=== PATIENT | female | born 1965 | race Caucasian/White ===

== ENCOUNTER → 2016-04-15 | Outpatient (CLI) | payer OTHER ==
--- NOTE | 2016-04-16 14:28 | MM ---
Reason for exam: screening (asymptomatic). Last mammogram was performed 1 year and 11 months ago. History: Patient had first child at age 35. Family history of breast cancer in maternal aunt and breast cancer in maternal cousin. Benign left breast aspiration of the left breast, October 19, 2011. Physical Findings: A clinical breast exam by your physician is recommended on an annual basis and results should be correlated with mammographic findings. MG Screening Mammo w CAD Bilateral CC and MLO view(s) were taken. Prior study comparison: May 22, 2014, right breast MG work up mamm w CAD RT. May 17, 2014, bilateral MG screening mammo w CAD. September 29, 2011, bilateral digital screening mammo w/CAD. The breast tissue is heterogeneously dense. This may lower the sensitivity of mammography. Finding #1: There is a 10 mm circumscribed oval mass in the lower inner quadrant, anterior position of the right breast, 1-2cm from the nipple. Finding #2: There are typically benign round calcifications in both breasts. New finding since May 22, 2014. ASSESSMENT: Incomplete: need additional imaging evaluation, BI-RAD 0 RECOMMENDATION: Special view mammogram and ultrasound of the right breast. [facility] will attempt to contact patient to return for supplemental views and ultrasound.
== END | disposition home or self-care (01) ==
LOC: RADMAMWWP 07:49
PROVIDERS: ATTEND Family Medicine
DX: Z12.31 Encounter for screening mammogram for malignant neoplasm of breast (principal)

== ENCOUNTER → 2016-04-27 | Outpatient (CLI) | payer OTHER ==
--- NOTE | 2016-04-28 07:50 | MM ---
Reason for exam: additional evaluation requested from abnormal screening. Last mammogram was performed less than 1 month ago. History: Patient had first child at age 35. Family history of breast cancer in maternal aunt and breast cancer in maternal cousin. Benign left breast aspiration of the left breast, October 19, 2011. Physical Findings: Nurse did not find any significant physical abnormalities on exam. MG 3D Work Up W/Cad RT CC and MLO view(s) were taken of the right breast. Prior study comparison: April 15, 2016, bilateral MG screening mammo w CAD. May 22, 2014, right breast MG work up mamm w CAD RT. Nodule persists. These results were verbally communicated with the patient and result sheet given to the patient on 04/27/16. ASSESSMENT: Incomplete: need additional imaging evaluation, BI-RAD 0 RECOMMENDATION: Ultrasound of the right breast.
--- NOTE | 2016-04-28 07:51 | USB ---
Reason for exam: additional evaluation requested from abnormal screening. History: Patient had first child at age 35. Family history of breast cancer in maternal aunt and breast cancer in maternal cousin. Benign left breast aspiration of the left breast, October 19, 2011. US Breast Workup Limited RT Right breast ultrasound demonstrates a 0.75 x 0.51 x 0.53cm mixed lesion at 6 o'clock. These results were verbally communicated with the patient and result sheet given to the patient on 04/27/16. ASSESSMENT: Probably benign, BI-RAD 3 RECOMMENDATION: Follow-up diagnostic mammogram and ultrasound of the right breast in 6 months.
== END | disposition home or self-care (01) ==
LOC: RADMAMWWP 06:57
PROVIDERS: ATTEND Family Medicine
DX: R92.8 Other abnormal and inconclusive findings on diagnostic imaging of breast (principal); R92.2 Inconclusive mammogram
CPT/HCPCS: 76642; G0206; G0279

== ENCOUNTER → 2016-10-25 | Outpatient (CLI) | payer OTHER ==
--- NOTE | 2016-10-25 09:29 | MM ---
Reason for exam: follow-up at short interval from prior study. Last mammogram was performed 6 months ago. History: Patient had first child at age 35. Family history of breast cancer in maternal aunt and breast cancer in maternal cousin. Benign left breast aspiration of the left breast, October 19, 2011. Physical Findings: Nurse did not find any significant physical abnormalities on exam. MG Diagnostic Mammo RT w CAD CC and MLO view(s) were taken of the right breast. Prior study comparison: April 27, 2016, right breast MG 3d work up w/cad RT. April 15, 2016, bilateral MG screening mammo w CAD. The breast tissue is heterogeneously dense. This may lower the sensitivity of mammography. Nodular density in the right breast persists. These results were verbally communicated with the patient and result sheet given to the patient on 10/25/16. ASSESSMENT: Incomplete: need additional imaging evaluation, BI-RAD 0 RECOMMENDATION: Ultrasound of the right breast.
--- NOTE | 2016-10-25 09:31 | USB ---
Reason for exam: follow-up at short interval from prior study. History: Patient had first child at age 35. Family history of breast cancer in maternal aunt and breast cancer in maternal cousin. Benign left breast aspiration of the left breast, October 19, 2011. US Breast RT Right breast ultrasound includes all four quadrants, the retroareolar region and axilla. Finding demonstrates two cystic lesions at 6 o'clock measuring 6 x 5 x 6mm and 6 x 3 x 4mm. These results were verbally communicated with the patient and result sheet given to the patient on 10/25/16. ASSESSMENT: Benign, BI-RAD 2 RECOMMENDATION: Return to routine screening mammogram schedule for both breasts. Back on schedule for April 2017.
== END | disposition home or self-care (01) ==
LOC: RADMAMWWP 08:33
PROVIDERS: ATTEND Family Medicine
DX: R92.8 Other abnormal and inconclusive findings on diagnostic imaging of breast (principal)
CPT/HCPCS: 76641; G0206

== ENCOUNTER 2017-03-28 02:56 | Emergency (ER) | payer OTHER ==
[2017-03-28 03:03] VITALS: RESP 18; TEMP 100.2
[2017-03-28] MEDS ORDERED: HYDROcodone/APAP 5-325MG 1 EACH TAB PO STA (03:19)
--- NOTE | 2017-03-28 04:03 | XR ---
EXAM: XR Right Humerus, 2 or More Views CLINICAL HISTORY: Pain. TECHNIQUE: Frontal and lateral views of the right humerus. COMPARISON: No relevant prior studies available. FINDINGS: Bones/joints: No evidence of acute fracture or dislocation. Soft tissues: No evidence of significant soft tissue swelling.. IMPRESSION: No radiographic evidence of acute osseous injury.
--- NOTE | 2017-03-28 04:13 | XR ---
EXAM: XR Right Shoulder Complete, 2 or More Views CLINICAL HISTORY: Pain status post trauma TECHNIQUE: Two or more views of the right shoulder. COMPARISON: 03/14/2014. FINDINGS: Bones/joints: Mild degenerative changes are noted. No acute fracture. No dislocation. Soft tissues: Soft tissue swelling is suggested overlying the shoulder. IMPRESSION: Soft tissue swelling overlies the shoulder without radiographic evidence of acute osseous injury.
[2017-03-28 04:19] VITALS: BP 164/71; PULSE 95
--- NOTE | 2017-03-28 04:21 | ED ---
Upper Extremity HPI - General Chief Complaint: Extremity Injury, Upper Stated Complaint: Arm pain Time Seen by Provider: 03/28/17 03:05 Source: patient, family Mode of arrival: ambulatory Limitations: physical limitation - History of Present Illness Initial Comments: This is a 51 year old female with right upper arm pain after lifting a box at the [employer] store to send, 3 days ago. Patient reports that she felt something pull her arm, and has been having pain since then. She denies previous injury to this arm. Patient denies any other symptoms. She reports swelling to the arm. She denies any other symptoms. Patient reports no chest pain, shortness of breath, nausea, and vomiting. - Related Data Home Medications Medication Instructions Recorded Confirmed Albuterol Inhaler [Ventolin Hfa 1 - 2 puff INHALATION RT-Q6H PRN 02/19/14 Inhaler] Aspirin/Sod Bicarb/Citric Acid 2 tab PO Q4H PRN 03/10/16 03/10/16 [[place] Original Tab Eff] Previous Rx's Medication Instructions Recorded Amoxicillin/Potassium Clav 1 tab PO Q12HR #14 tab 03/11/16 [Augmentin 875-125 Tablet] Fluticasone Nasal [place] [Flonase 1 spray EA NOSTRIL DAILY #1 bottle 03/11/16 Nasal [place]] Acetaminophen-Codeine 300-30mg 1 tab PO Q8H PRN #10 tablet 03/28/17 [Tylenol #3] Allergies Allergy/AdvReac Type Severity Reaction Status Date / Time iodine AdvReac Rash/Hives Verified 03/10/16 14:18 Review of Systems ROS Statement: Those systems with pertinent positive or pertinent negative responses have been documented in the HPI. ROS Other: All systems not noted in ROS Statement are negative. Past Medical History Past Medical History: Asthma, GERD/Reflux, Pneumonia Additional Past Medical History / Comment(s): DISSASSOCIATIVE DISORDER, schizophrenic, ptsd, anxiety, ruptured ear drum(lt), palpatations, bronchits, ulcer, migraines, rib fx, osteoporosis History of Any Multi-Drug Resistant Organisms: None Reported Past Surgical History: Appendectomy Past Anesthesia/Blood Transfusion Reactions: Motion Sickness Additional Past Anesthesia/Blood Transfusion Reaction / Comment(s): clausterphobia Past Psychological History: Anxiety, Depression, PTSD, Schizophrenia Smoking Status: Never smoker Past Alcohol Use History: None Reported Past Drug Use History: None Reported - Past Family History Mother Family Medical History: Cancer, COPD Additional Family Medical History / Comment(s): colon cancer, depression Father Family Medical History: Myocardial Infarction ([place]) Additional Family Medical History / Comment(s): ptsd ([place] war), at age 42-mi General Exam - General Exam Comments Initial Comments: This is a 51 year old female, no distress Limitations: physical limitation General appearance: alert, in no apparent distress Head exam: Present: atraumatic, normocephalic, normal inspection Eye exam: Present: normal appearance, PERRL, EOMI. Absent: scleral icterus, conjunctival injection, periorbital swelling ENT exam: Present: normal exam, mucous membranes moist Neck exam: Present: normal inspection. Absent: tenderness, meningismus, lymphadenopathy Respiratory exam: Present: normal lung sounds bilaterally. Absent: respiratory distress, wheezes, rales, rhonchi, stridor Cardiovascular Exam: Present: regular rate, normal rhythm, normal heart sounds. Absent: systolic murmur, diastolic murmur, rubs, gallop, clicks GI/Abdominal exam: Present: soft, normal bowel sounds. Absent: distended, tenderness, guarding, rebound, rigid Right Shoulder Exam: Present: normal inspection, tenderness. Absent: full ROM ( limited ROM and tenderness over glenohumeral area) Upper Arm exam: Present: normal inspection, tenderness (over tripcep and biceps) . Absent: full ROM Elbow exam: Present: normal inspection, full ROM Forearm Wrist exam: Present: normal inspection, full ROM Hand Wrist exam: Present: normal inspection, full ROM Neuro motor exam: Present: wrist extension intact, thumb opposition intact, thumb IP flexion intact, thumb adduction intact, fingers 2-5 abduction intact Neurosensory exam: Present: 2-point discrimination Vascular: Present: normal capillary refill Neurological exam: Present: alert, oriented X3, CN II-XII intact Psychiatric exam: Present: normal affect, normal mood Skin exam: Present: warm, dry, intact, normal color. Absent: rash Course Vital Signs 03/28/17 03/28/17 03:01 04:17 Temperature 100.2 F H Pulse Rate 114 H 95 Respiratory 18 18 Rate Blood Pressure 137/79 164/71 O2 Sat by Pulse 98 100 Oximetry Medical Decision Making - Medical Decision Making Pt is a 51 year old female with CC of right arm pain. Patient had this occur after lifting a box to be shipped. Patient has pain with any range of motion of arm and shoulder. She is tender over tricpets and bicep. Patient xrays show no abnormalities. Patient has no other symptoms. Patient placed in a sling, I believe she has tendenitis over biceps.Patient given antiinflammatory and advised to follow up with PCP. - Radiology Data Radiology results: report reviewed Xray of shoulder and humerus show no bony abnormality. Disposition Clinical Impression: Right arm pain Disposition: HOME SELF-CARE Condition: Good Instructions: Arm Pain (ED) Additional Instructions: Patient has a Motrin Tylenol for pain. Follow-up with your primary care provider as well as wound specialist. Return to emergency department if any alarming signs or symptoms occur. Prescriptions: Acetaminophen-Codeine 300-30mg [Tylenol #3] 1 tab PO Q8H PRN #10 tablet PRN Reason: Pain Referrals: Trini Sadler MD [Primary Care Provider] - 1-2 days Orlando Martinez DO [Doctor of Osteopathic Medicine] - 1-2 days Time of Disposition: 04:21
== END 2017-03-28 04:39 | disposition home or self-care (01) ==
LOC: EC 02:56
DX: M79.601 Pain in right arm (principal); M79.89 Other specified soft tissue disorders; Z91.048 Other nonmedicinal substance allergy status
CPT/HCPCS: 99283

== ENCOUNTER 2019-05-29 09:32 | Day surgery (SDC) | payer OTHER ==
[2019-05-25 08:24] VITALS: BMI 28.7
[~2019-05-29 09:32] MED LIST: LACTATED RINGERS 1,000 ML IV SCH
[2019-05-29 10:26] VITALS: TEMP 98.9
[2019-05-29] MEDS ORDERED: LIDOCAINE 1% (10MG/ML) FOR IV START INTRADERMA ONE (10:55)
[2019-05-29] MEDS ORDERED: PROPOFOL 10 MG/ML 20 ML VIAL IV ONE (11:35)
[2019-05-29 11:57] VITALS: BP 100/53; PULSE 99; RESP 16
--- NOTE | 2019-05-29 11:57 | P.PCN ---
Date of Procedure: 05/29/19 Description of Procedure: BRIEF HISTORY: Patient is a 53-year-old female presenting for colonoscopy for screening for malignant neoplasm of the colon. No prior colonoscopies reported. No change in bowel habits, blood per rectum or abdominal pain reported. PROCEDURE PERFORMED: Colonoscopy aborted/failed secondary to poor prep. PREOPERATIVE DIAGNOSIS: Screening for malignant neoplasm of the colon, no prior colonoscopies, family history of colon cancer in patient mother. ESTIMATED BLOOD LOSS: Minimal. IV sedation per Anesthesia. PROCEDURE: After informed consent was obtained, the patient, was brought into the endoscopy unit. IV sedation was administered by Anesthesia under continuous monitoring. Digital rectal examination was normal. Initially the Olympus CF-190 flexible video colonoscope was then inserted in the rectum, gradually advanced into the descending colon at which time the procedure had to be aborted secondary to poor prep. The patient had large amount of solid stool throughout the colon prohibiting visualization of the mucosa. The procedure was aborted. The patient tolerated the procedure well. IMPRESSION: Colonoscopy aborted/failed secondary to poor prep with a large amount of stool throughout the visualized colon. RECOMMENDATIONS: Findings of this examination were discussed with the patient and her . Okay to resume diet. Okay to resume medications. Would recommend repeat colonoscopy in 6 months with 2 day prep.
== END 2019-05-29 12:30 | disposition home or self-care (01) ==
LOC: ORWHC2ENDO 09:32
PROVIDERS: ATTEND Internal Medicine
DX: Z12.11 Encounter for screening for malignant neoplasm of colon (principal); Z80.0 Family history of malignant neoplasm of digestive organs; Z53.09 Procedure and treatment not carried out because of other contraindication; J45.909 Unspecified asthma, uncomplicated; Z79.899 Other long term (current) drug therapy; Z88.2 Allergy status to sulfonamides; Z88.8 Allergy status to other drugs, medicaments and biological substances; Z90.49 Acquired absence of other specified parts of digestive tract
CPT/HCPCS: G0105; J2704; 45378

== ENCOUNTER → 2019-09-25 | Outpatient (CLI) | payer OTHER ==
--- NOTE | 2019-09-27 11:19 | MM ---
Reason for exam: screening (asymptomatic). Last mammogram was performed 2 years and 11 months ago. History: Patient is postmenopausal and had first child at age 35. Family history of breast cancer in maternal aunt and breast cancer in maternal cousin. Benign left breast aspiration of the left breast, October 19, 2011. Physical Findings: A clinical breast exam by your physician is recommended on an annual basis and results should be correlated with mammographic findings. MG Screening Mammo w CAD Bilateral CC and MLO view(s) were taken. Prior study comparison: October 25, 2016, right breast MG diagnostic mammo RT w CAD. April 27, 2016, right breast MG 3d work up w/cad RT. The breast tissue is heterogeneously dense. This may lower the sensitivity of mammography. There are benign appearing round calcifications bilaterally. There is no discrete abnormality. ASSESSMENT: Benign, BI-RAD 2 RECOMMENDATION: Routine screening mammogram of both breasts in 1 year.
== END | disposition home or self-care (01) ==
LOC: RADMAMWWP 06:58
PROVIDERS: ATTEND Family Medicine
DX: Z12.31 Encounter for screening mammogram for malignant neoplasm of breast (principal); M89.9 Disorder of bone, unspecified
CPT/HCPCS: 77067

== ENCOUNTER → 2020-02-04 | Outpatient (CLI) | payer OTHER | END | disposition home or self-care (01) | LOC: LABWHC1 14:33 | PROVIDERS: ATTEND Family Medicine | DX: Z20.89 Contact with and (suspected) exposure to other communicable diseases (principal) | CPT/HCPCS: U0003; C9803 ==

== ENCOUNTER 2020-02-20 10:33 | Observation (INO) | payer OTHER ==
[2020-02-20] MEDS ORDERED: NITROGLYCERIN SL TABS 0.4 MG TAB SUBLINGUAL STA ×2 (11:35)
[2020-02-20] MEDS ORDERED: ASPIRIN 81 MG PO STA (11:35)
--- NOTE | 2020-02-20 11:38 | ED ---
General Adult HPI - General Chief complaint: Chest Pain Stated complaint: chest pain Time Seen by Provider: 02/20/20 11:05 Source: patient, RN notes reviewed Mode of arrival: ambulatory Limitations: no limitations - History of Present Illness Initial comments: Patient is a pleasant 54-year-old female presenting to the emergency Department with complaints of chest discomfort. Onset of symptoms was around 9:30 this morning. Symptoms have been persistent. Patient states discomfort is sternal to right-sided and feels like pressure. Symptoms are somewhat positional. There is mild associated dyspnea with deep breaths or position changes. No nausea or diaphoresis. No history of similar symptoms previously. No leg pain or leg swelling. Patient did have adams virus infection around 2 weeks ago. - Related Data Home Medications Medication Instructions Recorded Confirmed Cholecalciferol [Vitamin D3 (25 5,000 unit PO DAILY 05/25/19 02/20/20 Mcg = 1000 Iu)] SUMAtriptan SUCCINATE [Imitrex] 4 mg SQ DIRECTED PRN 05/25/19 02/20/20 Albuterol Sulfate [Ventolin HFA] 1 - 2 puff INHALATION RT-Q6H PRN 02/20/20 02/20/20 Allergies Allergy/AdvReac Type Severity Reaction Status Date / Time magnesium sulfate Allergy Severe paralysis Verified 02/20/20 12:03 iodine Allergy Rash/Hives Verified 02/20/20 12:03 shellfish derived [Shrimp] Allergy Rash/Hives Verified 02/20/20 12:03 Sulfates AdvReac Severe paralysis Uncoded 02/20/20 12:03 Review of Systems ROS Statement: Those systems with pertinent positive or pertinent negative responses have been documented in the HPI. ROS Other: All systems not noted in ROS Statement are negative. Constitutional: Denies: fever Eyes: Denies: eye pain ENT: Denies: ear pain Respiratory: Reports: as per HPI Cardiovascular: Reports: as per HPI, chest pain Endocrine: Denies: fatigue Gastrointestinal: Denies: abdominal pain Genitourinary: Denies: dysuria Musculoskeletal: Denies: back pain Skin: Denies: rash Neurological: Denies: weakness Past Medical History Past Medical History: Asthma, GERD/Reflux, Pneumonia Additional Past Medical History / Comment(s): DISSASSOCIATIVE DISORDER, schizophrenic, ptsd, anxiety, ruptured ear drum(lt), palpatations, bronchits,ulcer, migraines, rib fx, osteoporosis History of Any Multi-Drug Resistant Organisms: None Reported Past Surgical History: Appendectomy Additional Past Surgical History / Comment(s): Fluid drained from Breast Past Anesthesia/Blood Transfusion Reactions: Motion Sickness Additional Past Anesthesia/Blood Transfusion Reaction / Comment(s): clausterphobia Past Psychological History: Anxiety, Depression, PTSD, Schizophrenia Smoking Status: Never smoker Past Alcohol Use History: None Reported Past Drug Use History: None Reported - Past Family History Mother Family Medical History: Cancer, COPD Additional Family Medical History / Comment(s): colon cancer, depression Father Family Medical History: Myocardial Infarction ([place]) Additional Family Medical History / Comment(s): ptsd ([place] war), at age 42-mi General Exam Limitations: no limitations General appearance: alert, in no apparent distress Head exam: Present: normocephalic Eye exam: Present: normal appearance Neck exam: Present: normal inspection Respiratory exam: Present: normal lung sounds bilaterally, chest wall tenderness (Mild tenderness right side of the sternum upper) Cardiovascular Exam: Present: normal rhythm, tachycardia, normal heart sounds Expanded Peripheral pulses: 2+: Radial (R), Radial (L), Posterior Tibialis (R), Posterior Tibialis (L), Dorsalis Pedis (R), Dorsalis Pedis (L) GI/Abdominal exam: Present: soft. Absent: tenderness Extremities exam: Present: normal inspection. Absent: pedal edema, calf tenderness Back exam: Present: normal inspection Neurological exam: Present: alert Psychiatric exam: Present: normal affect, normal mood Skin exam: Present: normal color Course Vital Signs 02/20/20 02/20/20 02/20/20 10:41 11:48 11:54 Temperature 98.1 F Pulse Rate 124 H 114 H Respiratory 18 18 Rate Blood Pressure 127/69 154/72 140/75 O2 Sat by Pulse 97 96 Oximetry 02/20/20 12:04 Temperature Pulse Rate 99 Respiratory 17 Rate Blood Pressure 114/67 O2 Sat by Pulse 97 Oximetry EKG Findings - EKG Comments: EKG Findings:: Sinus tachycardia 116. NV 138. QRS 80. QT 336. QTc 467. Normal axis. Q waves V1 and V2. No acute ST change. Medical Decision Making - Medical Decision Making Patient reevaluated and has some improvement. Patient updated on results and plan. Case was discussed with Dr. James, covering for Dr. mcknight, who will admit. - Lab Data Result diagrams: 02/20/20 11:40 02/20/20 11:40 Lab Results 02/20/20 02/20/20 02/20/20 Range/Units 11:40 11:40 11:40 WBC 7.6 (3.8-10.6) k/uL RBC 4.53 (3.80-5.40) m/uL Hgb 13.1 (11.4-16.0) gm/dL Hct 38.6 (34.0-46.0) % MCV 85.2 (80.0-100.0) fL MCH 29.0 (25.0-35.0) pg MCHC 34.0 (31.0-37.0) g/dL RDW 14.1 (11.5-15.5) % Plt Count 406 (150-450) k/uL MPV 7.0 Neutrophils % 61 % Lymphocytes % 27 % Monocytes % 6 % Eosinophils % 4 % Basophils % 1 % Neutrophils # 4.6 (1.3-7.7) k/uL Lymphocytes # 2.1 (1.0-4.8) k/uL Monocytes # 0.5 (0-1.0) k/uL Eosinophils # 0.3 (0-0.7) k/uL Basophils # 0.1 (0-0.2) k/uL PT (9.0-12.0) sec INR (<1.2) APTT (22.0-30.0) sec D-Dimer (<0.60) mg/L FEU Sodium 141 (137-145) mmol/L Potassium 4.6 (3.5-5.1) mmol/L Chloride 106 (98-107) mmol/L Carbon Dioxide 26 (22-30) mmol/L Anion Gap 9 mmol/L BUN 13 (7-17) mg/dL Creatinine 0.64 (0.52-1.04) mg/dL Est GFR (CKD-EPI)AfAm >90 (>60 ml/min/1.73 sqM) Est GFR (CKD-EPI)NonAf >90 (>60 ml/min/1.73 sqM) Glucose 119 H (74-99) mg/dL Calcium 9.8 (8.4-10.2) mg/dL Magnesium 2.1 (1.6-2.3) mg/dL Total Bilirubin 0.7 (0.2-1.3) mg/dL AST 32 (14-36) U/L ALT 25 (4-34) U/L Alkaline Phosphatase 55 (38-126) U/L Troponin I <0.012 (0.000-0.034) ng/mL Total Protein 7.7 (6.3-8.2) g/dL Albumin 4.4 (3.5-5.0) g/dL 02/20/20 Range/Units 12:15 WBC (3.8-10.6) k/uL RBC (3.80-5.40) m/uL Hgb (11.4-16.0) gm/dL Hct (34.0-46.0) % MCV (80.0-100.0) fL MCH (25.0-35.0) pg MCHC (31.0-37.0) g/dL RDW (11.5-15.5) % Plt Count (150-450) k/uL MPV Neutrophils % % Lymphocytes % % Monocytes % % Eosinophils % % Basophils % % Neutrophils # (1.3-7.7) k/uL Lymphocytes # (1.0-4.8) k/uL Monocytes # (0-1.0) k/uL Eosinophils # (0-0.7) k/uL Basophils # (0-0.2) k/uL PT 10.1 (9.0-12.0) sec INR 1.0 (<1.2) APTT 19.1 L (22.0-30.0) sec D-Dimer 0.43 (<0.60) mg/L FEU Sodium (137-145) mmol/L Potassium (3.5-5.1) mmol/L Chloride (98-107) mmol/L Carbon Dioxide (22-30) mmol/L Anion Gap mmol/L BUN (7-17) mg/dL Creatinine (0.52-1.04) mg/dL Est GFR (CKD-EPI)AfAm (>60 ml/min/1.73 sqM) Est GFR (CKD-EPI)NonAf (>60 ml/min/1.73 sqM) Glucose (74-99) mg/dL Calcium (8.4-10.2) mg/dL Magnesium (1.6-2.3) mg/dL Total Bilirubin (0.2-1.3) mg/dL AST (14-36) U/L ALT (4-34) U/L Alkaline Phosphatase (38-126) U/L Troponin I (0.000-0.034) ng/mL Total Protein (6.3-8.2) g/dL Albumin (3.5-5.0) g/dL - Radiology Data Radiology results: image reviewed (X-ray shows possible underlying scarring or atelectasis.) Disposition Clinical Impression: Chest pain Disposition: ADMITTED IP TO THIS HOSP Is patient prescribed a controlled substance at d/c from ED?: No Referrals: Trini Sadler MD [Primary Care Provider] - 1-2 days Decision Time: 14:15
[2020-02-20] MEDS: NITROGLYCERIN SL TABS 0.4 MG TAB SUBLINGUAL STA ×2 (11:48→11:55)
--- NOTE | 2020-02-20 11:54 | XR ---
EXAMINATION TYPE: XR chest 2V DATE OF EXAM: 02/20/2020 COMPARISON: Prior chest x-ray 03/10/2016 HISTORY: Chest pain TECHNIQUE: Frontal and lateral views of the chest are obtained. FINDINGS: Old right clavicular fracture appears healed. No pneumothorax or pleural effusion. There i s spinal curvature. Cardiac mediastinal silhouette, pulmonary vascularity and gladis are unchanged. The re are strand-like areas of increased attenuation within the lungs laterally. IMPRESSION: There may be some underlying atelectasis or scarring. Consider follow-up.
[2020-02-20 11:58] LABS: Basophils # (A) 0.1 k/uL (0-0.2); Basophils % (A) 1 %; Eosinophils # (A) 0.3 k/uL (0-0.7); Eosinophils % (A) 4 %; HCT 38.6 % (34.0-46.0); HGB 13.1 gm/dL (11.4-16.0); Lymphocytes # (A) 2.1 k/uL (1.0-4.8); Lymphocytes % (A) 27 %; MCV 85.2 fL (80.0-100.0); Monocytes # (A) 0.5 k/uL (0-1.0); Monocytes % (A) 6 %; Neutrophils # (A) 4.6 k/uL (1.3-7.7); Neutrophils % (A) 61 %; Platelet Count 406 k/uL (150-450); RBC 4.53 m/uL (3.80-5.40); RDW 14.1 % (11.5-15.5); WBC 7.6 k/uL (3.8-10.6)
[2020-02-20] MEDS ORDERED: MORPHINE SULFATE 4 MG/ML SYRINGE IVP STA (12:16)
[2020-02-20 12:17] LABS: ALT 25 U/L (4-34); AST 32 U/L (14-36); African American GFR (CKD) >90 (>60 ml/min/1.73 sqM); Albumin 4.4 g/dL (3.5-5.0); Alkaline Phosphatase 55 U/L (38-126); Anion Gap 9 mmol/L; Blood Urea Nitrogen 13 mg/dL (7-17); Calcium 9.8 mg/dL (8.4-10.2); Carbon Dioxide 26 mmol/L (22-30); Chloride 106 mmol/L (98-107); Glucose 119 mg/dL (74-99); Magnesium 2.1 mg/dL (1.6-2.3); Non-African American GFR(CKD) >90 (>60 ml/min/1.73 sqM); Sodium 141 mmol/L (137-145); Total Bilirubin 0.7 mg/dL (0.2-1.3); Total Protein 7.7 g/dL (6.3-8.2)
[2020-02-20 12:18] LABS: Potassium 4.6 mmol/L (3.5-5.1)
[2020-02-20 12:53] LABS: D-Dimer 0.43 mg/L FEU (<0.60); Prothrombin Time 10.1 sec (9.0-12.0)
[2020-02-20 13:00] LABS: Partial Thromboplastin Time 19.1 sec (22.0-30.0)
[2020-02-20] MEDS ORDERED: NITROGLYCERIN SL TABS 0.4 MG TAB SUBLINGUAL PRN (14:15)
[2020-02-20] MEDS ORDERED: MORPHINE SULFATE 4 MG/ML SYRINGE IV PRN (14:15)
[2020-02-20] MEDS ORDERED: IPRATROPIUM-ALBUTEROL 3 ML NEB INHALATION PRN (14:26)
[2020-02-20] MEDS ORDERED: SUMAtriptan succinate 6 MG/0.5 ML VIAL SQ PRN (14:26)
--- NOTE | 2020-02-20 14:31 | P.HPIM ---
History of Present Illness H&P Date: 02/20/20 Chief Complaint: Chest pain This is a 54-year-old female patient who presented to the ER with complaints of chest pain. Patient states that chest pain started around 9:30 this morning and have been persistent feels like pressure on the right side of her chest. Patient denies shortness of breath but does complain of positional when she takes deep breath. Patient has a past medical history of chronic virus infection around 2 weeks ago in which she was symptomatic with cough fever and diarrhea. Those symptoms have completely resolved and patient was cleared to return to work. Patient reports his chest pain is new she did not experience it during virus symptoms. Additional medical history includes asthma, GERD, pneumonia, schizophrenia, PTSD and dissociative disorder. EKG completed showing sinus tachycardia. Chest x-ray completed showing some underlining atelectasis or scarring. Initial troponin negative. Repeat troponins have been ordered patient will be admitted for observation. Cardiac he services have been consulted. Review of Systems Please refer to HPI otherwise unremarkable Past Medical History Past Medical History: Asthma, GERD/Reflux, Pneumonia Additional Past Medical History / Comment(s): DISSASSOCIATIVE DISORDER, schizophrenic, ptsd, anxiety, ruptured ear drum(lt), palpatations, bronchits,ulcer, migraines, rib fx, osteoporosis History of Any Multi-Drug Resistant Organisms: None Reported Past Surgical History: Appendectomy Additional Past Surgical History / Comment(s): Fluid drained from Breast Past Anesthesia/Blood Transfusion Reactions: Motion Sickness Additional Past Anesthesia/Blood Transfusion Reaction / Comment(s): clausterphobia Past Psychological History: Anxiety, Depression, PTSD, Schizophrenia Smoking Status: Never smoker Past Alcohol Use History: None Reported Past Drug Use History: None Reported - Past Family History Mother Family Medical History: Cancer, COPD Additional Family Medical History / Comment(s): colon cancer, depression Father Family Medical History: Myocardial Infarction ([place]) Additional Family Medical History / Comment(s): ptsd ([place] war), at age 42-mi Medications and Allergies Home Medications Medication Instructions Recorded Confirmed Type Cholecalciferol [Vitamin D3 (25 5,000 unit PO DAILY 05/25/19 02/20/20 History Mcg = 1000 Iu)] SUMAtriptan SUCCINATE [Imitrex] 4 mg SQ DIRECTED PRN 05/25/19 02/20/20 History Albuterol Sulfate [Ventolin HFA] 1 - 2 puff INHALATION RT-Q6H PRN 02/20/20 02/20/20 History Allergies Allergy/AdvReac Type Severity Reaction Status Date / Time magnesium sulfate Allergy Severe paralysis Verified 02/20/20 12:03 iodine Allergy Rash/Hives Verified 02/20/20 12:03 shellfish derived [Shrimp] Allergy Rash/Hives Verified 02/20/20 12:03 Sulfates AdvReac Severe paralysis Uncoded 02/20/20 12:03 Physical Exam Vitals: Vital Signs Temp Pulse Resp BP Pulse Ox 02/20/20 12:04 99 17 114/67 97 02/20/20 11:54 140/75 02/20/20 11:48 114 H 18 154/72 96 02/20/20 10:41 98.1 F 124 H 18 127/69 97 Intake and Output 02/19/20 02/20/20 02/20/20 22:59 06:59 14:59 Other: Weight 69.4 kg Head normocephalic Neck supple Lungs clear to auscultation bilaterally no wheezing or crackles Heart regular rate and rhythm S1-S2, no rub or gallop Abdomen is soft nontender nondistended positive bowel sounds no hepatosplenomegaly Extremities no edema Neuro alert and orientated to 3 Results CBC & Chem 7: 02/20/20 11:40 02/20/20 11:40 Labs: Abnormal Lab Results - Last 24 Hours (Table) 02/20/20 02/20/20 Range/Units 11:40 12:15 APTT 19.1 L (22.0-30.0) sec Glucose 119 H (74-99) mg/dL Assessment and Plan Assessment: 1. Chest pain. Initial troponin negative. Repeat serial troponins ordered. Chest x-ray completed showing some underlining atelectasis or scarring. Cardiology services have been consulted 2. Recent COVID-19 virus infection. Patient reports she had tested positive approximate 2 weeks ago and was symptomatic at that time. Symptoms have reso lved 3. History of asthma 4. History of GERD 5. History of schizophrenia 6. History of PTSD DVT prophylaxis Lovenox. GI prophylaxis Pepcid Time with Patient: Greater than 30 (Greater than 60% of the total time spent in counseling and coordination of care)
[2020-02-20] MEDS: NITROGLYCERIN OINT 1 INCH/GM PACKET TOPICAL SCH (17:37)
[2020-02-21] MEDS: NITROGLYCERIN OINT 1 INCH/GM PACKET TOPICAL SCH ×2 (00:33→06:05)
[2020-02-21 04:56] VITALS: PULSE 88
[2020-02-21] MEDS ORDERED: ENOXAPARIN 40 MG/0.4 ML SYRINGE SQ SCH (09:00)
[2020-02-21] MEDS ORDERED: ASPIRIN 325 MG TAB PO SCH (09:00)
[2020-02-21] MEDS ORDERED: CHOLECALCIFEROL 1,000 UNIT TAB PO SCH (09:00)
[2020-02-21] MEDS ORDERED: ASPIRIN 81 MG PO SCH (09:00)
[2020-02-21] MEDS ORDERED: FAMOTIDINE 20 MG TAB PO SCH (09:00)
[2020-02-21 09:35] LABS: Basophils # (A) 0.1 k/uL (0-0.2); Basophils % (A) 1 %; Eosinophils # (A) 0.3 k/uL (0-0.7); Eosinophils % (A) 3 %; HCT 37.4 % (34.0-46.0); HGB 12.3 gm/dL (11.4-16.0); Lymphocytes # (A) 1.7 k/uL (1.0-4.8); Lymphocytes % (A) 18 %; MCH 28.7 pg (25.0-35.0); MCV 86.8 fL (80.0-100.0); Mean Platelet Volume 6.8; Monocytes # (A) 0.4 k/uL (0-1.0); Monocytes % (A) 5 %; Neutrophils # (A) 6.9 k/uL (1.3-7.7); Neutrophils % (A) 72 %; Platelet Count 381 k/uL (150-450); RBC 4.31 m/uL (3.80-5.40); RDW 14.1 % (11.5-15.5); WBC 9.5 k/uL (3.8-10.6)
[2020-02-21 10:05] LABS: ALT 23 U/L (4-34); AST 27 U/L (14-36); African American GFR (CKD) >90 (>60 ml/min/1.73 sqM); Alkaline Phosphatase 66 U/L (38-126); Anion Gap 6 mmol/L; Blood Urea Nitrogen 13 mg/dL (7-17); Calcium 9.1 mg/dL (8.4-10.2); Carbon Dioxide 31 mmol/L (22-30); Chloride 104 mmol/L (98-107); Cholesterol 193 mg/dL (<200); Glucose 96 mg/dL (74-99); HDL Cholesterol 66 mg/dL (40-60); LDL Cholesterol,Calculated 105 mg/dL (0-99); Non-African American GFR(CKD) >90 (>60 ml/min/1.73 sqM); Potassium 4.7 mmol/L (3.5-5.1); Sodium 141 mmol/L (137-145); Total Bilirubin 0.9 mg/dL (0.2-1.3); Total Protein 6.8 g/dL (6.3-8.2); Triglycerides 110 mg/dL (<150)
--- NOTE | 2020-02-21 11:56 | P.CRDCN ---
History of Present Illness History of present illness: HISTORY OF PRESENTING ILLNESS This is a pleasant 54-year-old female past medical history significant for asthma, gastroesophageal reflux disease and schizophrenia. She was diagnos ed with COVID 2 weeks ago and went back to work a couple of days ago. 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 We have been asked to see in consultation for chest pain. He states yesterday while she was at work she noticed a discomfort in the midsternal region described as an achy type sensation. The pain was worse when she would lean forward and bent over. It was exacerbated by deep inspiration. Her symptoms have improved since coming to the hospital and she can breathe easier now with no symptoms of chest discomfort. DIAGNOSTICS EKG reveals sinus tachycardia heart rate of 116 with poor R-wave progression. Chest xray possible underlying atelectasis no overt heart failure. Laboratory reviewed, ABC unremarkable, d-dimer 0.43, sodium 141, potassium 4.7, creatinine 0.68, magnesium 2.1, cardiac enzymes negative 3, LDL 105 and HDL 66. She takes no daily cardiac medications. Most recent echocardiogram obtained in 2016 revealed preserved LV systolic function with ejection fraction 55-60%, mild MR and mild TR noted. She underwent a stress test in 2016 that was negative for stress-induced ischemia. REVIEW OF SYSTEMS At the time of my exam: CONSTITUTIONAL: Denies fever or chills. CARDIOVASCULAR: Denies chest pain, shortness of breath, orthopnea, PND or palpitations. RESPIRATORY: Denies cough. GASTROINTESTINAL: Denies abdominal pain, diarrhea, constipation, nausea or vomiting. MUSCULOSKELETAL: Denies myalgias. NEUROLOGIC: Denies numbness, tingling or weakness. ENDOCRINE: Denies fatigue, weight change, polydipsia or polyurina. GENITOURINARY: Denies burning, hematuria or urgency with micturation. HEMATOLOGIC: Denies history of anemia or bleeding. PHYSICAL EXAMINATION Blood pressure 143/69 heart rate 88 afebrile and maintaining oxygen saturation on nasal cannula. CONSTITUTIONAL: No apparent distress. HEENT: Head is normocephalic. Pupils are equal, round. Sclerae anicteric. Mucous membranes of the mouth are moist. No JVD. No carotid bruit. CHEST EXAMINATION: Lungs are clear to auscultation. No chest wall tenderness is noted on palpation or with deep breathing. HEART EXAMINATION: Regular rate and rhythm. S1, S2 heard. No murmurs, gallops or rub. ABDOMEN: Soft, nontender. Positive bowel sounds. EXTREMITIES: 2+ peripheral pulses, no lower extremity edema and no calf tenderness. NEUROLOGIC EXAMINATION: Patient is awake, alert and oriented x3. ASSESSMENT Chest pain, pleuritic Recent Covid 19 infection Asthma Schizophrenia PLAN Pain is atypical for angina with pleuritic features. An acute coronary event has been ruled out. Recommend obtaining an echocardiogram to assess for any pericardial effusion. No further cardiac testing if echocardiogram is normal. Thank you kindly for this consultation. Nurse Practitioner note has been reviewed, I agree with a documented findings and plan of care. Patient was seen and examined. Past Medical History Past Medical History: Asthma, GERD/Reflux, Pneumonia Additional Past Medical History / Comment(s): DISSASSOCIATIVE DISORDER, schizophrenic, ptsd, anxiety, ruptured ear drum(lt), palpatations, bronchits,ulcer, migraines, rib fx, osteoporosis. prediabetes- A1C 6.1 12/19/19. Covid 02/03/20 approximately History of Any Multi-Drug Resistant Organisms: None Reported Past Surgical History: Appendectomy Additional Past Surgical History / Comment(s): Fluid drained from Breast Past Anesthesia/Blood Transfusion Reactions: Motion Sickness Additional Past Anesthesia/Blood Transfusion Reaction / Comment(s): clausterphobia Past Psychological History: Anxiety, Depression, PTSD, Schizophrenia Smoking Status: Never smoker Past Alcohol Use History: None Reported Past Drug Use History: None Reported Additional Drug Use History / Comment(s): HAS USED SPEED IN PAST-QUIT 1985 - Past Family History Mother Family Medical History: Cancer, COPD Additional Family Medical History / Comment(s): colon cancer, depression Father Family Medical History: Myocardial Infarction ([place]) Additional Family Medical History / Comment(s): ptsd ([place] war), at age 42-mi Medications and Allergies Home Medications Medication Instructions Recorded Confirmed Type Cholecalciferol [Vitamin D3 (25 5,000 unit PO DAILY 05/25/19 02/20/20 History Mcg = 1000 Iu)] SUMAtriptan SUCCINATE [Imitrex] 4 mg SQ DIRECTED PRN 05/25/19 02/20/20 History Albuterol Sulfate [Ventolin HFA] 1 - 2 puff INHALATION RT-Q6H PRN 02/20/20 02/20/20 History Allergies Allergy/AdvReac Type Severity Reaction Status Date / Time magnesium sulfate Allergy Severe paralysis Verified 02/20/20 12:03 iodine Allergy Rash/Hives Verified 02/20/20 12:03 shellfish derived [Shrimp] Allergy Rash/Hives Verified 02/20/20 12:03 Sulfates AdvReac Severe paralysis Uncoded 02/20/20 12:03 Physical Exam Vitals: Vital Signs Temp Pulse Pulse Resp BP BP Pulse Ox 02/21/20 03:40 97.6 F 88 18 102/65 96 02/20/20 21:00 97.2 F L 85 18 130/65 95 02/20/20 17:35 20 02/20/20 17:34 97.8 F 87 20 125/77 98 02/20/20 14:59 98.5 F 89 18 112/68 96 02/20/20 12:04 99 17 114/67 97 02/20/20 11:54 140/75 02/20/20 11:48 114 H 18 154/72 96 02/20/20 10:41 98.1 F 124 H 18 127/69 97 Intake and Output 02/20/20 02/21/20 02/21/20 22:59 06:59 14:59 Intake Total 100 Balance 100 Intake: Oral 100 Other: Voiding Method Toilet Toilet # Voids 1 2 Weight 69.4 kg Results 02/21/20 08:46 02/21/20 08:46 Cardiac Enzymes 02/20/20 02/20/20 02/20/20 Range/Units 11:40 11:40 15:13 AST 32 (14-36) U/L Troponin I <0.012 <0.012 (0.000-0.034) ng/mL 02/20/20 Range/Units 17:18 AST (14-36) U/L Troponin I <0.012 (0.000-0.034) ng/mL Coagulation 02/20/20 Range/Units 12:15 PT 10.1 (9.0-12.0) sec APTT 19.1 L (22.0-30.0) sec CBC 02/20/20 Range/Units 11:40 WBC 7.6 (3.8-10.6) k/uL RBC 4.53 (3.80-5.40) m/uL Hgb 13.1 (11.4-16.0) gm/dL Hct 38.6 (34.0-46.0) % Plt Count 406 (150-450) k/uL Comprehensive Metabolic Panel 02/20/20 Range/Units 11:40 Sodium 141 (137-145) mmol/L Potassium 4.6 (3.5-5.1) mmol/L Chloride 106 (98-107) mmol/L Carbon Dioxide 26 (22-30) mmol/L BUN 13 (7-17) mg/dL Creatinine 0.64 (0.52-1.04) mg/dL Glucose 119 H (74-99) mg/dL Calcium 9.8 (8.4-10.2) mg/dL AST 32 (14-36) U/L ALT 25 (4-34) U/L Alkaline Phosphatase 55 (38-126) U/L Total Protein 7.7 (6.3-8.2) g/dL Albumin 4.4 (3.5-5.0) g/dL Current Medications Generic Name Dose Route Start Last Admin Trade Name Freq PRN Reason Stop Dose Admin Albuterol/Ipratropium 3 ml 02/20/20 14:26 Ipratropium-Albuterol 3 Ml Neb INHALATION Q3HR PRN Bronchospasm Aspirin 81 mg 02/21/20 09:00 Aspirin 81 Mg PO DAILY [facility] Cholecalciferol 5,000 unit 02/21/20 09:00 Cholecalciferol 1,000 Unit Tab PO DAILY [facility] Enoxaparin Sodium 40 mg 02/21/20 09:00 Enoxaparin 40 Mg/0.4 Ml Syringe SQ DAILY [facility] Famotidine 20 mg 02/21/20 09:00 Famotidine 20 Mg Tab PO DAILY [facility] Morphine Sulfate 4 mg 02/20/20 14:15 Morphine Sulfate 4 Mg/Ml Syringe IV Q5M PRN Chest Pain Nitroglycerin 0.4 mg 02/20/20 14:15 Nitroglycerin Sl Tabs 0.4 Mg Tab SUBLINGUAL Q5M PRN Chest Pain Sodium Chloride 10 ml 02/20/20 21:00 02/20/20 21:15 Sodium Chloride 0.9% Flush 10 Ml Syringe IV 10 ml BID [facility]OMON Administration Sumatriptan Succinate 4 mg 02/20/20 14:26 Sumatriptan Succinate 6 Mg/0.5 Ml Vial SQ DAILY PRN Migraine Headache Intake and Output 02/20/20 02/21/20 02/21/20 22:59 06:59 14:59 Intake Total 100 Balance 100 Intake: Oral 100 Other: Voiding Method Toilet Toilet # Voids 1 2 Weight 69.4 kg 02/20/20 11:40 02/20/20 11:40
[2020-02-21 12:50] LABS: C Reactive Protein 12.6 mg/L (<10.0)
--- NOTE | 2020-02-21 14:13 | CONS ---
CONSULTATION PULMONARY/CRITICAL CARE CONSULTATION: DATE OF SERVICE: 02/21/2020 REASON FOR CONSULTATION: Pleuritic chest pain. This is a 54-year-old female who presented to the emergency department on February 20, 2020 at 10:33 with complaints of chest pain. The symptoms began on the on the day of admission. It is a sharp pain. It is worse with moving about and deep breathing. The pain seems to be more on the right side of the chest area. It is also on the back a bit. The patient denies any fever or chills. She denies any cough or phlegm production. She states that she does feel like the pain is worse when she takes a deep breath. She does not actually feel short of breath. There is no nausea, vomiting or diarrhea. There is no abdominal pain. No genitourinary complaints. She denies any trauma. She does state that she was tested positive for COVID-19 virus around two weeks prior. At that time, she was mostly having GI issues. She never really had any pulmonary issues per se. Currently, she states that the chest pain is dissipated. She is not having any complaints at all and she would like to be discharged home. CURRENT HOME MEDICATIONS: Include vitamin D3, Imitrex, and albuterol inhaler for her asthma. ALLERGIES: Include magnesium sulfate, iodine, shellfish, and sulfates. MEDICAL HISTORY: Very mild intermittent or seasonal asthma, acid reflux disease, and pneumonia. She also has a history of dissociative disorder and schizophrenia as well as posttraumatic stress disorder and anxiety. Other medical problems include a ruptured ear drum, palpitations, migraine cephalgia, rib fracture, and osteoporosis. SURGICAL HISTORY: Appendectomy. SOCIAL HISTORY: Negative for tobacco, alcohol use or illicit drug use. FAMILY HISTORY: Positive for father with myocardial infarction and posttraumatic stress disorder as well as underlying colon cancer and depression. REVIEW OF SYSTEMS: CONSTITUTIONAL: Negative. NEUROLOGIC: Negative. HEENT: Negative. CARDIOVASCULAR: Negative. PULMONARY: Pain on deep breathing, chest pain, sharp pleuritic in nature, worse with changes in body position and movement. GI: Negative. : Negative. RHEUMATOLOGIC: Negative. IMMUNOLOGIC: Negative. ENDOCRINOLOGIC: Negative. DERMATOLOGIC: Negative. Current vital signs include temperature 97.9, heart rate 88, respiratory rate 16, blood pressure 143/69 mean 93, room air saturation 98%. She states that the pain has completely dissipated. She is not having any symptoms at this time. LABS: Reviewed, white count 9.5, hemoglobin 12.3, hematocrit 37.4, platelet count 381,000. PT, INR normal, PTT 19.1, D-dimer normal, sodium potassium normal, chloride normal, CO2 is 31, anion gap is 6. BUN and creatinine were 13 and 0.68. Troponins were negative x3. Cholesterol was 193. The patient had a chest x-ray that was interpreted as being normal. There might be some atelectasis at the right base. An EKG was normal. Current medications are reviewed. She is currently on baby aspirin, vitamin D3, Lovenox, Pepcid, morphine, nitroglycerin tablets, saline, and Imitrex. ASSESSMENT: 1. Right-sided pleuritic chest pain, resolved, may be related to underlying viral infection such as Coxsackie B infection. 2. Previous episode of being positive for COVID-19, 2 weeks prior, with primarily GI complaints, resolved. 3. History of mild intermittent/seasonal asthma. 4. History of gastroesophageal reflux disease. 5. History of pneumonia. 6. Dissociative disorder. 7. Schizophrenia. 8. PTSD. 9. Anxiety. 10.Claustrophobia. 11.Depression. PLAN: From my perspective, the patient could be discharged home. The patient can use some nonsteroid anti-inflammatory drug for what appears to be pleuritic chest pain. Currently, not having any pain whatsoever. No additional symptoms. The patient never had any lung complaints such as cough, shortness of breath, fever. No need to follow this patient. MMODL / IJN: [id number] /
[2020-02-21 15:56] VITALS: RESP 18; TEMP 98
[2020-02-21 15:57] VITALS: BP 136/87
--- NOTE | 2020-02-21 19:49 | ECHOF ---
Referral Reason:cp sob MEASUREMENTS -------- HEIGHT: 154.9 cm WEIGHT: 69.4 kg BP: 102/65 IVSd: 1.2 cm (0.6 - 1.1) LVIDd: 3.3 cm (3.9 - 5.3) LVPWd: 1.1 cm (0.6 - 1.1) IVSs: 1.5 cm LVIDs: 1.6 cm LVPWs: 1.7 cm RVIDd: 3.5 cm (< 3.3) LAESV Index (A-L): 16.76 ml/m Ao Diam: 2.6 cm (2.0 - 3.7) AV Cusp: 1.9 cm (1.5 - 2.6) EPSS: 0.4 cm MV E Ozzie: 1.05 m/s MV DecT: 115 ms MV A Ozzie: 0.84 m/s MV E/A Ratio: 1.25 RAP: 5.00 mmHg RVSP: 33.79 mmHg MV EF SLOPE: 92.32 mm/s (70 - 150) MV EXCURSION: 17.57 mm (> 18.000) FINDINGS -------- Sinus rhythm. This was a technically adequate study. The left ventricular size is normal. There is mild concentric left ventricular hypertrophy. Overa ll left ventricular systolic function is normal with, an EF between 55 - 60 %. The diastolic fillin g pattern is normal for the age of the patient 15.83. The right ventricle is mildly enlarged. Normal LA size by volume 22+/-6 ml/m2. The right atrial size is normal. Interatrial and interventricular septum intact. The aortic valve is trileaflet and appears structurally normal. There is no evidence of aortic regu rgitation. There is no evidence of aortic stenosis. No mitral regurgitation. Mild tricuspid regurgitation present. There is borderline pulmonary artery hypertension. The righ t ventricular systolic pressure, as measured by Doppler, is 33.79mmHg. There is no pulmonic regurgitation present. The aortic root size is normal. Normal inferior vena cava with normal inspiratory collapse consistent with estimated right atrial pre ssure of 5 mmHg. There is no pericardial effusion. CONCLUSIONS -------- 1. The left ventricular size is normal. 2. There is mild concentric left ventricular hypertrophy. 3. Overall left ventricular systolic function is normal with, an EF between 55 - 60 %. 4. The diastolic filling pattern is normal for the age of the patient 15.83 5. The right ventricle is mildly enlarged. 6. Mild tricuspid regurgitation present. 7. There is borderline pulmonary artery hypertension. 8. The right ventricular systolic pressure, as measured by Doppler, is 33.79mmHg. GATE TENDER: Nannette Dyer RDCS
== END 2020-02-21 15:57 | disposition home or self-care (01) ==
LOC: EC 10:33 → 3NCARDOBS 14:15
PROVIDERS: ADMIT Internal Medicine; ATTEND Internal Medicine
DX: R07.81 Pleurodynia (principal); R06.00 Dyspnea, unspecified; R00.2 Palpitations; R00.0 Tachycardia, unspecified; K21.9 Gastro-esophageal reflux disease without esophagitis; Z87.01 Personal history of pneumonia (recurrent); F20.9 Schizophrenia, unspecified; F40.240 Claustrophobia; F32.9 Major depressive disorder, single episode, unspecified; F43.10 Post-traumatic stress disorder, unspecified; F41.9 Anxiety disorder, unspecified; J45.20 Mild intermittent asthma, uncomplicated; G43.909 Migraine, unspecified, not intractable, without status migrainosus; M81.0 Age-related osteoporosis without current pathological fracture; R73.03 Prediabetes; Z86.19 Personal history of other infectious and parasitic diseases; F44.9 Dissociative and conversion disorder, unspecified; Z87.09 Personal history of other diseases of the respiratory system; Z90.49 Acquired absence of other specified parts of digestive tract; Z79.899 Other long term (current) drug therapy; Z91.013 Allergy to seafood; Z91.048 Other nonmedicinal substance allergy status; Z88.2 Allergy status to sulfonamides; Z88.8 Allergy status to other drugs, medicaments and biological substances; Z82.5 Family history of asthma and other chronic lower respiratory diseases; Z80.0 Family history of malignant neoplasm of digestive organs; Z81.8 Family history of other mental and behavioral disorders; Z82.49 Family history of ischemic heart disease and other diseases of the circulatory system
CPT/HCPCS: 93005 ×2; 96372; 96374; 99285; 36415; 93306; 85379; 80061; 80053 ×2; 83615; 83735; 84484; 85025 ×2; 85610; 85730; 86140; 84145; 71046; G0378 ×2; J2270; J1650

== ENCOUNTER 2020-09-15 07:56 | Day surgery (SDC) | payer OTHER ==
[2020-09-11 15:37] VITALS: BMI 22.6
[~2020-09-15 07:56] MED LIST changes: +LIDOCAINE 1% (10MG/ML) FOR IV START INTRADERMA PRN
[2020-09-15 08:30] VITALS: RESP 16; TEMP 97.9
[2020-09-15] MEDS ORDERED: IV FLUID CONTINUATION 1,000 ML IV ONE (08:40)
[2020-09-15 08:50] LABS: Glucose,Whole Blood 99 mg/dL (75-99)
[2020-09-15] MEDS ORDERED: PROPOFOL 10 MG/ML 50 ML VIAL IV ONE (09:47)
--- NOTE | 2020-09-15 10:20 | P.PCN ---
Date of Procedure: 09/15/20 Description of Procedure: BRIEF HISTORY: Patient is a 54-year-old female presenting for outpatient colonoscopy for screening for malignant neoplasm colon. No change in bowel habits or blood per rectum. Family history of colon cancer in her mother. PROCEDURE PERFORMED: Colonoscopy with polypectomy. PREOPERATIVE DIAGNOSIS: Screening for malignant neoplasm of the colon, family history of colon cancer in the patient's mother. ESTIMATED BLOOD LOSS: Minimal. IV sedation per Anesthesia. PROCEDURE: After informed consent was obtained, the patient, was brought into the endoscopy unit. IV sedation was administered by Anesthesia under continuous monitoring. Digital rectal examination was normal. Initially the Olympus CF-190 flexible video colonoscope was then inserted in the rectum, gradually advanced into the cecum without any difficulty. Careful examination was performed as the scope was gradually being withdrawn. Ileocecal valve and the appendiceal orifice were visualized and appeared normal. Prep was excellent. Mucosa of the cecum, ascending colon, transverse colon, descending colon, sigmoid colon, and rectum appeared normal, with a few scattered diverticula noted in the left colon. A diminutive 1 mm ascending colon polyp was removed with cold forcep polypectomy. Retroflexion was performed in the rectum and no lesions were seen all over internal hemorrhoids noted. The patient tolerated the procedure well. IMPRESSION: Diminutive ascending colon polyp removed with cold forcep polypectomy. Mild left colonic diverticulosis. Otherwise normal-appearing colon from rectum to cecum. RECOMMENDATIONS: Findings of this examination were discussed with the patient is okay to resume diet. Okay to resume medications. Await pathology from polypectomy. Recommend repeat colonoscopy in 5 years for family history of colon cancer.
[2020-09-15 10:40] VITALS: BP 120/81; PULSE 92
== END 2020-09-15 11:01 | disposition home or self-care (01) ==
LOC: ORWHC2ENDO 07:56
PROVIDERS: ATTEND Internal Medicine
DX: Z12.11 Encounter for screening for malignant neoplasm of colon (principal); K63.5 Polyp of colon; K57.30 Diverticulosis of large intestine without perforation or abscess without bleeding; K64.8 Other hemorrhoids; J45.909 Unspecified asthma, uncomplicated; R73.03 Prediabetes; K21.9 Gastro-esophageal reflux disease without esophagitis; Z80.0 Family history of malignant neoplasm of digestive organs; Z79.899 Other long term (current) drug therapy; Z90.89 Acquired absence of other organs; Z91.013 Allergy to seafood; Z91.048 Other nonmedicinal substance allergy status; Z88.2 Allergy status to sulfonamides; Z88.8 Allergy status to other drugs, medicaments and biological substances
CPT/HCPCS: 88305; 45380; J2704

== ENCOUNTER → 2020-10-22 | Outpatient (CLI) | payer OTHER ==
--- NOTE | 2020-10-22 16:08 | XR ---
EXAMINATION TYPE: XR lumbosacral spine min 4V DATE OF EXAM: 10/22/2020 CLINICAL HISTORY: Lower back pain for 3 days. No known injury. History of osteoporosis. TECHNIQUE: Frontal, lateral, and oblique images of the lumbar spine are obtained. COMPARISON: None FINDINGS: There are 5 lumbar type vertebral bodies identified. There is levocurvature of the lumbar spine. No evidence of acute fracture or subluxation. Vertebral body heights and disk space heights a re within normal limits. There is mild degenerative disc disease spurring of the endplates at L2-L3, L3-L4, and L4-L5. No evidence of spondylolisthesis. The oblique images appear within normal limits. The overlying soft tissue appears unremarkable. IMPRESSION: 1. No acute fracture or subluxation is seen in the lumbar spine. 2. Mild degenerative disc disease. 3. Levocurvature of the lumbar spine.
== END | disposition home or self-care (01) ==
LOC: RADXRMAIN 12:17
PROVIDERS: ATTEND Nurse Practitioner Family
DX: M51.36 Other intervertebral disc degeneration, lumbar region (principal); M41.86 Other forms of scoliosis, lumbar region
CPT/HCPCS: 72110

== ENCOUNTER → 2020-11-17 | Outpatient (CLI) | payer OTHER ==
--- NOTE | 2020-11-18 14:40 | BD ---
EXAMINATION TYPE: Axial Bone Density DATE OF EXAM: 11/17/2020 COMPARISON: 09/29/2011 CLINICAL HISTORY: Osteoporosis Height: 61.2 IN Weight: 157 LBS RISK FACTORS HISTORY OF: Family History of Osteoporosis: YES GRANDFATHER Active: YES Postmenopausal woman: AGE 52 Lost more than 2 inches in height since high school: HEIGHT LOSS 4" MEDICATIONS: Osteoporosis Medications: NOT NOW Which medication: Fosamax How Long: TOOK PREVIOUSLY FOR 2 YEARS Additional Medications: VIT D, EXAM MEASUREMENTS: Bone mineral densitometry was performed using the fitkit System. Bone mineral density as measured about the Lumbar spine is: ----- L1-L4(G/cm2): 1.080 T Score Values are as follows: ----- L2: -0.9 ----- L3: 0.2 ----- L4: -1.6 ----- L1-L4: -0.8 Bone mineral density has: Decreased -0.7% since study of: 09/29/2011 Bone mineral density about the R hip (g/cm2): 0.790 Bone mineral density about the L hip (g/cm2): 0.769 T Score values are as follows: -----R Neck: -1.8 -----L Neck: -1.9 -----R Total: -1.1 -----L Total: -1.4 Bone mineral density has: Increased 4.2% since study of: 09/29/2011 IMPRESSION: Osteopenia (T Score between -2.5 and -1). There is slightly increased risk of fracture and the patient may be considered for treatment. Re-Screen 2-5 years. NOTE: T-SCORE=SD OF THE YOUNG ADULT MEAN.
== END | disposition home or self-care (01) ==
LOC: RADBDWWP 14:40
PROVIDERS: ATTEND Family Medicine
DX: M85.80 Other specified disorders of bone density and structure, unspecified site (principal); Z78.0 Asymptomatic menopausal state
CPT/HCPCS: 77080

== ENCOUNTER 2021-08-19 18:47 | Emergency (ER) | payer OTHER ==
[2021-08-19 20:14] VITALS: BP 149/65; PULSE 96; RESP 16; TEMP 98.1
--- NOTE | 2021-08-19 20:37 | XR ---
EXAMINATION TYPE: XR chest 2V DATE OF EXAM: 08/19/2021 COMPARISON: 02/20/2020 HISTORY: Pain TECHNIQUE: 2 views FINDINGS: Heart and mediastinum are normal. Lungs are clear. Diaphragm is normal. Bony thorax is inta ct. There is slight thoracic dextroscoliosis. IMPRESSION: No active cardiopulmonary disease. No change.
[2021-08-19] MEDS ORDERED: ACETAMINOPHEN TAB 500 MG TAB PO STA (21:26)
[2021-08-19] MEDS ORDERED: IBUPROFEN 800 MG TAB PO STA (21:26)
--- NOTE | 2021-08-19 21:26 | ED ---
Chest Pain HPI - General Chief Complaint: Back Pain/Injury Stated Complaint: Back/rib pain Time Seen by Provider: 08/19/21 21:20 Source: patient, RN notes reviewed, old records reviewed Mode of arrival: ambulatory Limitations: no limitations - History of Present Illness Initial Comments: This is a 54-year-old female who states that she has severe osteoporosis coming in for right-sided rib pain. Patient states she always has rib pain back pain she does wear a brace for this pain. Patient states the pain is worse when she takes a deep breath worse when she moves she is wearing a brace and taking Tylenol with no real significant help. Patient denies any significant trauma. Patient has otherwise no significant family medical history has been taking Tylenol and muscle relaxers with no real significant help. No travel history or sick contacts no other complaints MD Complaint: chest pain, other (Right-sided rib pain radiating to her back) -: hour(s) Onset: during exertion Pain Location: right chest Pain Radiation: back Severity: moderate Severity scale (1-10): 4 Quality: aching, sharp Consistency: intermittent Improves With: nothing Worsens With: nothing Context: trauma/injury Anginal Symptoms: other (none) Treatments Prior to Arrival: none - Related Data Home Medications Medication Instructions Recorded Confirmed Cholecalciferol [Vitamin D3 (25 5,000 unit PO DAILY 05/25/19 09/11/20 Mcg = 1000 Iu)] Albuterol Sulfate [Ventolin HFA] 1 - 2 puff INHALATION RT-Q6H PRN 02/20/20 09/11/20 Cyclobenzaprine [Flexeril] 10 mg PO TID PRN 09/11/20 09/11/20 SUMAtriptan SUCCINATE [Imitrex] 100 mg PO DIRECTED PRN 09/11/20 09/11/20 Allergies Allergy/AdvReac Type Severity Reaction Status Date / Time magnesium sulfate Allergy Severe paralysis Verified 08/19/21 20:14 iodine Allergy Rash/Hives Verified 08/19/21 20:14 shellfish derived [Shrimp] Allergy Rash/Hives Verified 08/19/21 20:14 Sulfates AdvReac Severe paralysis Uncoded 08/19/21 20:14 Review of Systems ROS Statement: Those systems with pertinent positive or pertinent negative responses have been documented in the HPI. ROS Other: All systems not noted in ROS Statement are negative. Past Medical History Past Medical History: Asthma, GERD/Reflux, Pneumonia Additional Past Medical History / Comment(s): ruptured ear drum(lt), palpatations, bronchits, migraines, hx rib fx, osteoporosis. Covid 02/03/20 approximately, hx ulcer, "pre diabetic"-watches diet, hx anemia History of Any Multi-Drug Resistant Organisms: None Reported Past Surgical History: Appendectomy, Breast Surgery Additional Past Surgical History / Comment(s): Fluid drained from left Breast Past Anesthesia/Blood Transfusion Reactions: Motion Sickness Additional Past Anesthesia/Blood Transfusion Reaction / Comment(s): claustrophobia, Past Psychological History: Anxiety, Depression, PTSD, Schizophrenia Smoking Status: Never smoker Past Alcohol Use History: None Reported Past Drug Use History: None Reported - Past Family History Mother Family Medical History: Cancer Additional Family Medical History / Comment(s): colon cancer, Father Family Medical History: Myocardial Infarction ([place]) Additional Family Medical History / Comment(s): ptsd ([place]), at age 42-mi General Exam Limitations: no limitations General appearance: alert, in no apparent distress Head exam: Present: atraumatic, normocephalic, normal inspection Eye exam: Present: normal appearance, PERRL, EOMI. Absent: scleral icterus, conjunctival injection, periorbital swelling ENT exam: Present: normal exam, mucous membranes moist Neck exam: Present: normal inspection. Absent: tenderness, meningismus, lymphadenopathy Respiratory exam: Present: normal lung sounds bilaterally. Absent: respiratory distress, wheezes, rales, rhonchi, stridor Cardiovascular Exam: Present: regular rate, normal rhythm, normal heart sounds, other (Right-sided rib tenderness ribs 9 and 10). Absent: systolic murmur, diastolic murmur, rubs, gallop, clicks GI/Abdominal exam: Present: soft, normal bowel sounds. Absent: distended, tenderness, guarding, rebound, rigid Extremities exam: Present: normal inspection, full ROM, normal capillary refill. Absent: tenderness, pedal edema, joint swelling, calf tenderness Back exam: Present: normal inspection Neurological exam: Present: alert, oriented X3, CN II-XII intact Psychiatric exam: Present: normal affect, normal mood Skin exam: Present: warm, dry, intact, normal color. Absent: rash Course Vital Signs 08/19/21 20:11 Temperature 98.1 F Pulse Rate 96 Respiratory 16 Rate Blood Pressure 149/65 O2 Sat by Pulse 99 Oximetry - Reevaluation(s) Reevaluation #1: 08/19/21 22:01 Medical records reviewed Reevaluation #2: 08/19/21 22:01 Patient no distress pain is controlled Reevaluation #3: 08/19/21 22:01 Patient informed results questions have been answered Reevaluation #4: Studies Chest x-rays negative for acute disease Chest Pain MDM - MDM 55 female DF for evaluation of right-sided rib pain back pain. Pain starts in her anterior chest most her back worsening takes a deep breath. X-rays negative for fracture noted will Rx patient can be discharged home no trauma noted Disposition Clinical Impression: Rib pain on right side, Contusion of rib on right side Disposition: HOME SELF-CARE Condition: Good Instructions (If sedation given, give patient instructions): Costochondritis (ED), Rib Contusion (ED) Is patient prescribed a controlled substance at d/c from ED?: No Referrals: Trini Sadler MD [Primary Care Provider] - 1-2 days
[2021-08-19] MEDS ORDERED: traMADol 50 MG STARTER PACK 3 TAB BTL PO STA (22:00)
== END 2021-08-19 22:26 | disposition home or self-care (01) ==
LOC: EC 18:47
DX: S20.211A Contusion of right front wall of thorax, initial encounter (principal); J45.909 Unspecified asthma, uncomplicated; Z86.16 Personal history of COVID-19; Z88.8 Allergy status to other drugs, medicaments and biological substances; Z91.013 Allergy to seafood; X58.XXXA Exposure to other specified factors, initial encounter
CPT/HCPCS: 71046; 99283

== ENCOUNTER → 2022-08-19 | Outpatient (CLI) | payer OTHER ==
--- NOTE | 2022-08-19 11:24 | USB ---
Reason for Exam: Follow-up at short interval from prior study. Patient History: Menarche at age 20. First Full-Term at age 35. Late child-bearing (after 30). Postmenopausal. 10/19/2011, Benign Cyst Aspiration on the left side. Maternal cousin had breast cancer. Maternal aunt had breast cancer. Risk Values: Trupti 5 year model risk: 1.4%. NCI Lifetime model risk: 10.4%. Technique: Method: Targeted. Prior Study Comparison: 10/25/2016 Right Diagnostic Mammogram, [facility]. 09/25/2019 Bilateral Screening Mammogram, [facility]. 05/18/2022 Bilateral MG 3D screening mammo w/cad, [facility]. Findings: The upper inner quadrant of the right breast, the axilla of the right breast and the retroareolar of the right breast were scanned. Targeted ultrasound upper quadrant right breast 12:00 to 3:00 including the subareolar region and axilla. Redemonstrated tiny 3 mm too small to characterize lesion at the 12:00 position, 7 cm from nipple, likely mammographic correlate to the nodularity seen on 05/18/2022 screening. Six-month follow-up mammogram recommended. Overall Assessment: Probably benign, BI-RAD 3 Management: Diagnostic Mammogram of both breasts in 6 months. Total one-year follow-up right breast nodularity and annual exam of the left breast. Patient should continue monthly self breast exams. These results should not preclude additional follow-up of suspicious palpable abnormalities. Results were given to the patient verbally at the time of exam. Electronically signed and approved by: Gio Reyes M.D. Radiologist
== END | disposition home or self-care (01) ==
LOC: RADUSWWP 10:27
PROVIDERS: ATTEND Family Medicine
DX: R92.8 Other abnormal and inconclusive findings on diagnostic imaging of breast (principal); Z78.0 Asymptomatic menopausal state; Z80.3 Family history of malignant neoplasm of breast

== ENCOUNTER 2023-01-30 08:32 | Emergency (ER) | payer OTHER ==
[2023-01-30 08:36] LABS: Glucose,Whole Blood 115 mg/dL (70-110)
[2023-01-30 08:45] VITALS: TEMP 98.7
--- NOTE | 2023-01-30 09:05 | ED ---
General Adult HPI - General Chief complaint: Recheck/Abnormal Lab/Rx Stated complaint: Hypoglycemia Time Seen by Provider: 01/30/23 08:49 Source: patient, RN notes reviewed Mode of arrival: ambulatory Limitations: no limitations - History of Present Illness Initial comments: 57-year-old female with a past medical history significant for diabet es mellitus type 2 presents to the emergency department with a chief complaint of hypoglycemia. She reports that she checks her sugar in the morning. She denies taking any sort of insulin. She reports that her sugar reading was presently 20. She ate a bowl of cereal and reports that it was up to 55. She does report that she feels shaky which prompted her to come to the emergency department. She denies any dizziness, lightheadedness, headache, nausea, vomiting, chest pain, shortness of breath, abdominal pain. - Related Data Home Medications Medication Instructions Recorded Confirmed Cholecalciferol [Vitamin D3 (25 5,000 unit PO DAILY 05/25/19 09/11/20 Mcg = 1000 Iu)] Albuterol Sulfate [Ventolin HFA] 1 - 2 puff INHALATION RT-Q6H PRN 02/20/20 Cyclobenzaprine [Flexeril] 10 mg PO TID PRN 09/11/20 09/11/20 SUMAtriptan succinate [Imitrex] 100 mg PO DIRECTED PRN 09/11/20 09/11/20 Allergies Allergy/AdvReac Type Severity Reaction Status Date / Time magnesium sulfate Allergy Severe paralysis Verified 01/30/23 08:41 iodine Allergy Rash/Hives Verified 01/30/23 08:41 shellfish derived [Shrimp] Allergy Rash/Hives Verified 01/30/23 08:41 Sulfates AdvReac Severe paralysis Uncoded 01/30/23 08:41 Review of Systems ROS Statement: Those systems with pertinent positive or pertinent negative responses have been documented in the HPI. ROS Other: All systems not noted in ROS Statement are negative. Past Medical History Past Medical History: Asthma, GERD/Reflux, Pneumonia Additional Past Medical History / Comment(s): ruptured ear drum(lt), palpatations, bronchits, migraines, hx rib fx, osteoporosis. Covid 02/03/20 approximately, hx ulcer, "pre diabetic"-watches diet, hx anemia History of Any Multi-Drug Resistant Organisms: None Reported Past Surgical History: Appendectomy, Breast Surgery Additional Past Surgical History / Comment(s): Fluid drained from left Breast Past Anesthesia/Blood Transfusion Reactions: Motion Sickness Additional Past Anesthesia/Blood Transfusion Reaction / Comment(s): claustrophobia, Past Psychological History: Anxiety, Depression, PTSD, Schizophrenia Smoking Status: Never smoker Past Alcohol Use History: None Reported Past Drug Use History: None Reported - Past Family History Mother Family Medical History: Cancer Additional Family Medical History / Comment(s): colon cancer, Father Family Medical History: Myocardial Infarction ([place]) Additional Family Medical History / Comment(s): ptsd ([place] war), at age 42-mi General Exam - General Exam Comments Initial Comments: General: Alert, in no acute distress Head: atraumatic normocephalic. Eyes PERRL, EOMI intact, mucous membranes moist Respiratory: Lungs clear to auscultation bilaterally Cardiovascular: tachycardic Abdominal: Soft without guarding or rebound Extremities: Normal inspection with full range of motion and normal capillary refill Neuroogic: alert and oriented 3, CN II-XII intact, able to ambulate with steady gait Skin: warm dry and intact with normal color Limitations: no limitations Course Vital Signs 01/30/23 01/30/23 08:36 10:56 Temperature 98.7 F Pulse Rate 116 H 65 Respiratory 18 16 Rate Blood Pressure 154/69 140/86 O2 Sat by Pulse 100 98 Oximetry - Reevaluation(s) Reevaluation #1: 01/30/23 10:42 Patient reevaluated. Patient updated on laboratory results. She is agreeable with the plan for discharge home. EKG Findings - EKG Comments: EKG Findings:: Interpreted the following: EKG performed at 09:20 rate 11 6 bpm and sinus tachycardia. NJ interval 182, QRS duration 89 QT/QTc 324/393 Medical Decision Making - Medical Decision Making Was pt. sent in by a medical professional or institution (, PA, [employer], urgent care, hospital, or fdc...) When possible be specific @ -[No] Did you speak to anyone other than the patient for history (EMS, parent, family, police, friend...)? What history was obtained from this source @ -[No] Did you review nursing and triage notes (agree or disagree)? Why? @ -[I reviewed and agree with nursing and triage notes] Were old charts reviewed (outside hosp., previous admission, EMS record, old EKG, old radiological studies, urgent care reports/EKG's, fdc records)? Report findings @ -[No old charts were reviewed] Differential Diagnosis (chest pain, altered mental status, abdominal pain women, abdominal pain men, vaginal bleeding, weakness, fever, dyspnea, syncope, headache, dizziness, GI bleed, back pain, seizure, CVA, palpatations, mental health, musculoskeletal)? @ -[not applicable] EKG interpreted by me (3pts min.). @ -[As above] X-rays interpreted by me (1pt min.). @ -[None done] CT interpreted by me (1pt min.). @ -[None done] U/S interpreted by me (1pt. min.). @ -[None done] What testing was considered but not performed or refused? (CT, X-rays, U/S, labs)? Why? @ -[None] What meds were considered but not given or refused? Why? @ -[None] Did you discuss the management of the patient with other professionals (trinidad wright i.e. , PA, [employer], lab, RT, psych nurse, psychotherapist social worker, color grinder, teacher, career services officer, medical case worker)? Give summary @ -[No] Was smoking cessation discussed for >3mins.? @ -[No] Was critical care preformed (if so, how long)? @ -[No] Were there social determinants of health that impacted care today? How? (Homelessness, low income, unemployed, alcoholism, drug addiction, transp ortation, low edu. Level, literacy, decrease access to med. care, prison, rehab)? @ -[No] Was there de-escalation of care discussed even if they declined (Discuss DNR or withdrawal of care, Hospice)? DNR status @ -[No] What co-morbidities impacted this encounter? (DM, HTN, Smoking, COPD, CAD, Cancer, CVA, ARF, Chemo, Hep., AIDS, mental health diagnosis, sleep apnea, morbid obesity)? @ -[None] Was patient admitted / discharged? Hospital course, mention meds given and route, prescriptions, significant lab abnormalities, going to OR and other pertinent info. @ -Discharged. This is a 57-year-old female presents the emergency department with blood sugar problem. Patient had a thorough history and physical exam performed on the ED. Physical exam essentially unremarkable. Heart rate is tachycardic however this is her baseline, lungs clear to auscult ation bilaterally abdomen soft nontender. Patient does not appear to be in any acute distress. ) Glucose values 117 and 125. EKG unremarkable. Patient does not take any sort of medication for her diabetic management. Patient encouraged to get a glucometer follow-up with her PCP within 1-2 days. Return precautions were discussed at length. Patient discharged in stable condition all questions were addressed. Case discussed with PAULY Caba who agrees with plan of care Undiagnosed new problem with uncertain prognosis? @ -[No] Drug Therapy requiring intensive monitoring for toxicity (Heparin, Nitro, Insulin, Cardizem)? @ -[No] Were any procedures done? @ -[No] Diagnosis/symptom? @ -Hypoglycemia Acute, or Chronic, or Acute on Chronic? @ -Acute Uncomplicated (without systemic symptoms) or Complicated (systemic symptoms)? @ -Uncomplicated Side effects of treatment? @ -[No] Exacerbation, Progression, or Severe Exacerbation? @ -[No] Poses a threat to life or bodily function? How? (Chest pain, [place], [place], pneumonia, PE, COPD, DKA, ARF, appy, cholecystitis, CVA, Diverticulitis, Homicidal, Suicidal, threat to staff... and all critical care pts) @ -Low likelihood - Lab Data Result diagrams: 01/30/23 08:49 01/30/23 08:49 Lab Results 01/30/23 01/30/23 01/30/23 Range/Units 08:35 08:49 08:49 WBC 7.1 (3.8-10.6) k/uL RBC 4.68 (3.80-5.40) m/uL Hgb 13.5 (11.4-16.0) gm/dL Hct 40.7 (34.0-46.0) % MCV 87.1 (80.0-100.0) fL MCH 28.8 (25.0-35.0) pg MCHC 33.0 (31.0-37.0) g/dL RDW 13.9 (11.5-15.5) % Plt Count 302 (150-450) k/uL MPV 7.0 Neutrophils % 56 % Lymphocytes % 30 % Monocytes % 6 % Eosinophils % 5 % Basophils % 1 % Neutrophils # 4.0 (1.3-7.7) k/uL Lymphocytes # 2.1 (1.0-4.8) k/uL Monocytes # 0.4 (0-1.0) k/uL Eosinophils # 0.4 (0-0.7) k/uL Basophils # 0.0 (0-0.2) k/uL Sodium 140 (137-145) mmol/L Potassium 5.0 (3.5-5.1) mmol/L Chloride 101 (98-107) mmol/L Carbon Dioxide 26 (22-30) mmol/L Anion Gap 13 mmol/L BUN 15 (7-17) mg/dL Creatinine 0.69 (0.52-1.04) mg/dL Est GFR (CKD-EPI)AfAm >90 (>60 ml/min/1.73 sqM) Est GFR (CKD-EPI)NonAf >90 (>60 ml/min/1.73 sqM) Glucose 125 H (74-99) mg/dL POC Glucose (mg/dL) 115 H (70-110) mg/dL POC Glu Rate Manager ID Asif Epstein Calcium 9.8 (8.4-10.2) mg/dL Total Bilirubin 0.7 (0.2-1.3) mg/dL AST 52 H (14-36) U/L ALT 48 H (4-34) U/L Alkaline Phosphatase 70 (38-126) U/L Total Protein 8.1 (6.3-8.2) g/dL Albumin 4.7 (3.5-5.0) g/dL Urine Color Urine Appearance (Clear) Urine pH (5.0-8.0) Ur Specific [place] (1.001-1.035) Urine Protein (Negative) Urine Glucose (UA) (Negative) Urine Ketones (Negative) Urine Blood (Negative) Urine Nitrite (Negative) Urine Bilirubin (Negative) Urine Urobilinogen (<2.0) mg/dL Ur Leukocyte Esterase (Negative) Urine RBC (0-5) /hpf Urine WBC (0-5) /hpf Ur Squamous Epith Cells (0-4) /hpf Amorphous Sediment (None) /hpf Urine Bacteria (None) /hpf Urine Mucus (None) /hpf 01/30/23 Range/Units 08:51 WBC (3.8-10.6) k/uL RBC (3.80-5.40) m/uL Hgb (11.4-16.0) gm/dL Hct (34.0-46.0) % MCV (80.0-100.0) fL MCH (25.0-35.0) pg MCHC (31.0-37.0) g/dL RDW (11.5-15.5) % Plt Count (150-450) k/uL MPV Neutrophils % % Lymphocytes % % Monocytes % % Eosinophils % % Basophils % % Neutrophils # (1.3-7.7) k/uL Lymphocytes # (1.0-4.8) k/uL Monocytes # (0-1.0) k/uL Eosinophils # (0-0.7) k/uL Basophils # (0-0.2) k/uL Sodium (137-145) mmol/L Potassium (3.5-5.1) mmol/L Chloride (98-107) mmol/L Carbon Dioxide (22-30) mmol/L Anion Gap mmol/L BUN (7-17) mg/dL Creatinine (0.52-1.04) mg/dL Est GFR (CKD-EPI)AfAm (>60 ml/min/1.73 sqM) Est GFR (CKD-EPI)NonAf (>60 ml/min/1.73 sqM) Glucose (74-99) mg/dL POC Glucose (mg/dL) (70-110) mg/dL POC Glu Rate Manager ID Calcium (8.4-10.2) mg/dL Total Bilirubin (0.2-1.3) mg/dL AST (14-36) U/L ALT (4-34) U/L Alkaline Phosphatase (38-126) U/L Total Protein (6.3-8.2) g/dL Albumin (3.5-5.0) g/dL Urine Color Colorless Urine Appearance Cloudy H (Clear) Urine pH 7.0 (5.0-8.0) Ur Specific [place] 1.014 (1.001-1.035) Urine Protein Negative (Negative) Urine Glucose (UA) Negative (Negative) Urine Ketones Negative (Negative) Urine Blood Negative (Negative) Urine Nitrite Negative (Negative) Urine Bilirubin Negative (Negative) Urine Urobilinogen <2.0 (<2.0) mg/dL Ur Leukocyte Esterase Small H (Negative) Urine RBC 5 (0-5) /hpf Urine WBC 4 (0-5) /hpf Ur Squamous Epith Cells 26 H (0-4) /hpf Amorphous Sediment Rare H (None) /hpf Urine Bacteria Rare H (None) /hpf Urine Mucus Rare H (None) /hpf Disposition Clinical Impression: Hypoglycemia Disposition: HOME SELF-CARE Condition: Stable Instructions (If sedation given, give patient instructions): Non-diabetic Hypoglycemia (ED), Hypoglycemia in a Person with Diabetes (ED) Additional Instructions: Please replace glucometer at home Please continue to check sugar Please follow-up with PCP within 2-3 days Please return to the nearest emergency Department if dizziness, lightheaded, headache, nausea or vomiting develops Is patient prescribed a controlled substance at d/c from ED?: No Referrals: Trini Sadler MD [Primary Care Provider] - 1-2 days Time of Disposition: 10:41
[2023-01-30 09:34] LABS: Basophils % (A) 1 %; Eosinophils # (A) 0.4 k/uL (0-0.7); Eosinophils % (A) 5 %; HCT 40.7 % (34.0-46.0); HGB 13.5 gm/dL (11.4-16.0); Lymphocytes # (A) 2.1 k/uL (1.0-4.8); Lymphocytes % (A) 30 %; MCH 28.8 pg (25.0-35.0); MCV 87.1 fL (80.0-100.0); Monocytes # (A) 0.4 k/uL (0-1.0); Monocytes % (A) 6 %; Neutrophils % (A) 56 %; Platelet Count 302 k/uL (150-450); RBC 4.68 m/uL (3.80-5.40); RDW 13.9 % (11.5-15.5); WBC 7.1 k/uL (3.8-10.6)
[2023-01-30 09:52] LABS: Amorphous Sediment,Urine Rare /hpf; Appearance,Urine Cloudy (Clear); Bacteria,Urine Rare /hpf; Bilirubin,Urine Negative (Negative); Blood,Urine Negative (Negative); Color,Urine Colorless; Glucose,Urine (UA) Negative (Negative); Ketones,Urine Negative (Negative); Leukocyte Esterase,Urine Small (Negative); Mucus,Urine Rare /hpf; Nitrite,Urine Negative (Negative); Protein,Urine Negative (Negative); RBC,Urine 5 /hpf (0-5); Specific Gravity,Urine 1.014 (1.001-1.035); Squamous Epithelial Cell,Urine 26 /hpf (0-4); Urobilinogen,Urine <2.0 mg/dL (<2.0); WBC,Urine 4 /hpf (0-5)
[2023-01-30 10:27] LABS: ALT 48 U/L (4-34); AST 52 U/L (14-36); African American GFR (CKD) >90 (>60 ml/min/1.73 sqM); Albumin 4.7 g/dL (3.5-5.0); Alkaline Phosphatase 70 U/L (38-126); Anion Gap 13 mmol/L; Blood Urea Nitrogen 15 mg/dL (7-17); Calcium 9.8 mg/dL (8.4-10.2); Carbon Dioxide 26 mmol/L (22-30); Chloride 101 mmol/L (98-107); Glucose 125 mg/dL (74-99); Non-African American GFR(CKD) >90 (>60 ml/min/1.73 sqM); Sodium 140 mmol/L (137-145); Total Bilirubin 0.7 mg/dL (0.2-1.3); Total Protein 8.1 g/dL (6.3-8.2)
[2023-01-30 11:11] VITALS: BP 140/86; PULSE 65; RESP 16
== END 2023-01-30 11:00 | disposition home or self-care (01) ==
LOC: EC 08:32
DX: E11.649 Type 2 diabetes mellitus with hypoglycemia without coma (principal); R00.0 Tachycardia, unspecified; J45.909 Unspecified asthma, uncomplicated; Z79.899 Other long term (current) drug therapy; Z91.013 Allergy to seafood; Z91.09 Other allergy status, other than to drugs and biological substances; Z86.16 Personal history of COVID-19
CPT/HCPCS: 36415; 80053; 81001; 85025; 93005; 99283

== ENCOUNTER → 2023-02-21 | Outpatient (CLI) | payer OTHER ==
--- NOTE | 2023-02-21 11:45 | MM ---
Reason for Exam: Follow-up at short interval from prior study. Last screening mammogram was performed 9 month(s) ago. Patient History: Menarche at age 20. First Full-Term at age 35. Late child-bearing (after 30). Postmenopausal. 10/19/2011, Benign Cyst Aspiration on the left side. Maternal cousin had breast cancer. Maternal aunt had breast cancer. Risk Values: Trupti 5 year model risk: 1.5%. NCI Lifetime model risk: 10.2%. Tissue Density: The breast tissue is heterogeneously dense. This may lower the sensitivity of mammography. Findings: Analyzed By CAD. No evidence for mass or distortion. No suspicious calcifications present. Overall Assessment: Benign, BI-RAD 2 Management: Screening Mammogram of both breasts in 1 year. . Results were given to the patient verbally at the time of exam. Patient should continue monthly self-breast exams. A clinical breast exam by your physician is recommended on an annual basis. This exam should not preclude additional follow-up of suspicious palpable abnormalities. Note on Trupti scores and lifetime risk: 1. A Trupti score greater than 3% is considered moderate risk. If this is the case, consider specialist referral to assess eligibility for a risk reducing agent. 2. If overall lifetime risk for the development of breast cancer is 20% or higher, the patient may qualify for future screening with alternating mammogram and breast MRI. Electronically signed and approved by: Sander Calles M.D. Radiologis
== END | disposition home or self-care (01) ==
LOC: RADMAMWWP 10:37
PROVIDERS: ATTEND Family Medicine
DX: R92.333 Mammographic heterogeneous density, bilateral breasts (principal); Z78.0 Asymptomatic menopausal state; Z80.3 Family history of malignant neoplasm of breast
CPT/HCPCS: 77066; G0279; 77062

== ENCOUNTER 2023-08-21 15:24 | Emergency (ER) | payer OTHER ==
--- NOTE | 2023-08-21 16:28 | ED ---
Recheck HPI - General Chief Complaint: Recheck/Abnormal Lab/Rx Stated Complaint: High blood sugar Time Seen by Provider: 08/21/23 16:08 Source: patient Mode of arrival: ambulatory Limitations: no limitations - History of Present Illness Initial Comments: This patient is a 57-year-old woman who states that she was diagnosed with type 2 diabetes and is using a glucose monitor, not currently taking any medications, and has noted that her blood sugars running higher than usual. The patient states that the glucose usually runs in the 200s but today it was over 300. She states that she does feel fatigued. She denies feeling symptoms of infection. She is not having chest or abdominal pain. MD Complaint: other Onset/Timin -: days(s) Returns Today for: other (elevated blood sugar) Associated Symptoms: other (Fatigue) Treatments Prior to Arrival: other (None) - Related Data Home Medications Medication Instructions Recorded Confirmed Cholecalciferol [Vitamin D3 (25 5,000 unit PO DAILY 05/25/19 09/11/20 Mcg = 1000 Iu)] Albuterol Sulfate [Ventolin HFA] 1 - 2 puff INHALATION RT-Q6H PRN 02/20/20 09/11/20 Cyclobenzaprine [Flexeril] 10 mg PO TID PRN 09/11/20 09/11/20 SUMAtriptan succinate [Imitrex] 100 mg PO DIRECTED PRN 09/11/20 09/11/20 Previous Rx's Medication Instructions Recorded metFORMIN HCL [Glucophage] 500 mg PO BID #30 tab 08/21/23 Allergies Allergy/AdvReac Type Severity Reaction Status Date / Time magnesium sulfate Allergy Severe paralysis Verified 08/21/23 15:27 iodine Allergy Rash/Hives Verified 08/21/23 15:27 shellfish derived [Shrimp] Allergy Rash/Hives Verified 08/21/23 15:27 Sulfates AdvReac Severe paralysis Uncoded 08/21/23 15:27 Review of Systems ROS Statement: Those systems with pertinent positive or pertinent negative responses have been documented in the HPI. ROS Other: All systems not noted in ROS Statement are negative. Constitutional: Denies: fever, chills, weakness ENT: Denies: throat pain, congestion Respiratory: Denies: cough, dyspnea Cardiovascular: Denies: chest pain, palpitations Endocrine: Reports: fatigue. Denies: polyuria Gastrointestinal: Denies: abdominal pain, vomiting, diarrhea Genitourinary: Denies: dysuria, hematuria Neurological: Denies: headache, weakness Past Medical History Past Medical History: Asthma, Diabetes Mellitus, GERD/Reflux, Pneumonia Additional Past Medical History / Comment(s): ruptured ear drum(lt), palpatations, bronchits, migraines, hx rib fx, osteoporosis. Covid 02/03/20 approximately, hx ulcer, "pre diabetic"-watches diet, hx anemia History of Any Multi-Drug Resistant Organisms: None Reported Past Surgical History: Appendectomy, Breast Surgery Additional Past Surgical History / Comment(s): Fluid drained from left Breast Past Anesthesia/Blood Transfusion Reactions: Motion Sickness Additional Past Anesthesia/Blood Transfusion Reaction / Comment(s): claustrophobia, Past Psychological History: Anxiety, Depression, PTSD, Schizophrenia Smoking Status: Never smoker Past Alcohol Use History: None Reported Past Drug Use History: None Reported - Past Family History Mother Family Medical History: Cancer Additional Family Medical History / Comment(s): colon cancer, Father Family Medical History: Myocardial Infarction (NH) Additional Family Medical History / Comment(s): ptsd ([place] war), at age 42-mi General Exam Limitations: no limitations General appearance: alert, in no apparent distress Head exam: Present: atraumatic, normocephalic Eye exam: Present: normal appearance. Absent: scleral icterus, conjunctival injection Neck exam: Present: normal inspection Respiratory exam: Present: normal lung sounds bilaterally. Absent: respiratory distress, wheezes, rales, rhonchi, stridor, accessory muscle use Cardiovascular Exam: Present: regular rate, normal rhythm, normal heart sounds. Absent: systolic murmur, diastolic murmur, rubs, gallop GI/Abdominal exam: Present: soft. Absent: distended, tenderness, guarding, rebound, rigid, mass Extremities exam: Present: normal inspection, normal capillary refill. Absent: pedal edema, calf tenderness Back exam: Present: normal inspection. Absent: CVA tenderness (R), CVA tenderness (L) Neurological exam: Present: alert Skin exam: Present: warm, dry, intact, normal color. Absent: rash Course Vital Signs 08/21/23 08/21/23 15:25 18:30 Temperature 98.3 F 98.1 F Pulse Rate 120 H 90 Respiratory 20 18 Rate Blood Pressure 164/83 139/76 O2 Sat by Pulse 99 100 Oximetry Medical Decision Making - Medical Decision Making Was pt. sent in by a medical professional or institution (KEVIN Torres, [employer], urgent care, hospital, or retirement...) When possible be specific @ -[No] Did you speak to anyone other than the patient for history (EMS, parent, family, police, friend...)? What history was obtained from this source @ -[No] Did you review nursing and triage notes (agree or disagree)? Why? @ -[I reviewed and agree with nursing and triage notes] Were old charts reviewed (outside hosp., previous admission, EMS record, old EKG, old radiological studies, urgent care reports/EKG's, retirement records)? Report findings @ -[No old charts were reviewed] Differential Diagnosis (chest pain, altered mental status, abdominal pain women, abdominal pain men, vaginal bleeding, weakness, fever, dyspnea, syncope, headache, dizziness, GI bleed, back pain, seizure, CVA, palpatations, mental health, musculoskeletal)? @ -[Differential diagnosis for hyperglycemia includes diabetes, medication induced, other iatrogenic hyperglycemia, Raúl's disease, stress, this list not comprehensive EKG interpreted by me (3pts min.). @ -[As above] X-rays interpreted by me (1pt min.). @ -[None done] CT interpreted by me (1pt min.). @ -[None done] U/S interpreted by me (1pt. min.). @ -[None done] What testing was considered but not performed or refused? (CT, X-rays, U/S, labs)? Why? @ -[None] What meds were considered but not given or refused? Why? @ -[None] Did you discuss the management of the patient with other professionals (professionals i.e. KEVIN Torres, [employer], lab, RT, psych nurse, social media director, electrophysiology scientist, teacher, chief supply chain officer, case reviewer)? Give summary @ -[No] Was smoking cessation discussed for >3mins.? @ -[No] Was critical care preformed (if so, how long)? @ -[No] Were there social determinants of health that impacted care today? How? (Homelessness, low income, unemployed, alcoholism, drug addiction, transportation, low edu. Level, literacy, decrease access to med. care, half-way, rehab)? @ -[No] Was there de-escalation of care discussed even if they declined (Discuss DNR or withdrawal of care, Hospice)? DNR status @ -[No] What co-morbidities impacted this encounter? (DM, HTN, Smoking, COPD, CAD, Cancer, CVA, ARF, Chemo, Hep., AIDS, mental health diagnosis, sleep apnea, morbid obesity)? @ -[Diabetes Was patient admitted / discharged? Hospital course, mention meds given and route, prescriptions, significant lab abnormalities, going to OR and other pertinent info. @ -[Patient is 57-year-old woman presenting with blood sugar higher than is her usual. The patient's blood sugar did respond to treatment here. I did stress the need to have long-term control of her blood sugar, the appropriate further care and follow-up, the return parameters. Undiagnosed new problem with uncertain prognosis? @ -[No] Drug Therapy requiring intensive monitoring for toxicity (Heparin, Nitro, Insulin, Cardizem)? @ -[No] Were any procedures done? @ -[No] Diagnosis/symptom? @ -[Hyperglycemia indiabetic patient Acute, or Chronic, or Acute on Chronic? @ -[Acute on chronic Uncomplicated (without systemic symptoms) or Complicated (systemic symptoms)? @ -[Uncomplicated Side effects of treatment? @ -[No] Exacerbation, Progression, or Severe Exacerbation? @ -[No] Poses a threat to life or bodily function? How? (Chest pain, [place], NH, pneumonia, PE, COPD, DKA, ARF, appy, cholecystitis, CVA, Diverticulitis, Homicidal, Suicidal, threat to staff... and all critical care pts) @ -[There is threat, but not acutely, stressed need to control blood sugar see above - Lab Data Result diagrams: 08/21/23 16:47 08/21/23 16:47 Lab Results 08/21/23 08/21/23 08/21/23 Range/Units 16:47 16:47 16:47 WBC 8.0 (3.8-10.6) k/uL RBC 4.22 (3.80-5.40) m/uL Hgb 12.2 (11.4-16.0) gm/dL Hct 36.8 (34.0-46.0) % MCV 87.2 (80.0-100.0) fL MCH 28.8 (25.0-35.0) pg MCHC 33.1 (31.0-37.0) g/dL RDW 14.3 (11.5-15.5) % Plt Count 340 (150-450) k/uL MPV 7.2 Neutrophils % 61 % Lymphocytes % 25 % Monocytes % 6 % Eosinophils % 5 % Basophils % 1 % Neutrophils # 4.9 (1.3-7.7) k/uL Lymphocytes # 2.0 (1.0-4.8) k/uL Monocytes # 0.5 (0-1.0) k/uL Eosinophils # 0.4 (0-0.7) k/uL Basophils # 0.1 (0-0.2) k/uL Sodium 138 (137-145) mmol/L Potassium 4.7 (3.5-5.1) mmol/L Chloride 103 (98-107) mmol/L Carbon Dioxide 25 (22-30) mmol/L Anion Gap 10 mmol/L BUN 17 (7-17) mg/dL Creatinine 0.84 (0.52-1.04) mg/dL Est GFR (CKD-EPI)AfAm >90 (>60 ml/min/1.73 sqM) Est GFR (CKD-EPI)NonAf 78 (>60 ml/min/1.73 sqM) Glucose 193 H (74-99) mg/dL POC Glucose (mg/dL) (70-110) mg/dL POC Glu Dat[employer]age Architect ID Calcium 9.0 (8.4-10.2) mg/dL Total Bilirubin 0.4 (0.2-1.3) mg/dL AST 28 (14-36) U/L ALT 31 (4-34) U/L Alkaline Phosphatase 88 (38-126) U/L Total Protein 6.9 (6.3-8.2) g/dL Albumin 4.1 (3.5-5.0) g/dL Urine Color Colorless Urine Appearance Cloudy H (Clear) Urine pH 5.5 (5.0-8.0) Ur Specific [place] 1.008 (1.001-1.035) Urine Protein Negative (Negative) Urine Glucose (UA) Trace H (Negative) Urine Ketones Negative (Negative) Urine Blood Negative (Negative) Urine Nitrite Negative (Negative) Urine Bilirubin Negative (Negative) Urine Urobilinogen <2.0 (<2.0) mg/dL Ur Leukocyte Esterase Large H (Negative) Urine RBC 1 (0-5) /hpf Urine WBC 35 H (0-5) /hpf Ur Squamous Epith Cells 21 H (0-4) /hpf Amorphous Sediment Rare H (None) /hpf Urine Bacteria Many H (None) /hpf Urine Mucus Few H (None) /hpf Acetone, Qual Negative (Negative) 08/21/23 08/21/23 Range/Units 16:47 18:27 WBC (3.8-10.6) k/uL RBC (3.80-5.40) m/uL Hgb (11.4-16.0) gm/dL Hct (34.0-46.0) % MCV (80.0-100.0) fL MCH (25.0-35.0) pg MCHC (31.0-37.0) g/dL RDW (11.5-15.5) % Plt Count (150-450) k/uL MPV Neutrophils % % Lymphocytes % % Monocytes % % Eosinophils % % Basophils % % Neutrophils # (1.3-7.7) k/uL Lymphocytes # (1.0-4.8) k/uL Monocytes # (0-1.0) k/uL Eosinophils # (0-0.7) k/uL Basophils # (0-0.2) k/uL Sodium (137-145) mmol/L Potassium (3.5-5.1) mmol/L Chloride (98-107) mmol/L Carbon Dioxide (22-30) mmol/L Anion Gap mmol/L BUN (7-17) mg/dL Creatinine (0.52-1.04) mg/dL Est GFR (CKD-EPI)AfAm (>60 ml/min/1.73 sqM) Est GFR (CKD-EPI)NonAf (>60 ml/min/1.73 sqM) Glucose (74-99) mg/dL POC Glucose (mg/dL) 222 H 106 (70-110) mg/dL POC Glu Datastage Architect ID Sudhakar, Sparkle Sudhakar, Sparkle Calcium (8.4-10.2) mg/dL Total Bilirubin (0.2-1.3) mg/dL AST (14-36) U/L ALT (4-34) U/L Alkaline Phosphatase (38-126) U/L Total Protein (6.3-8.2) g/dL Albumin (3.5-5.0) g/dL Urine Color Urine Appearance (Clear) Urine pH (5.0-8.0) Ur Specific [place] (1.001-1.035) Urine Protein (Negative) Urine Glucose (UA) (Negative) Urine Ketones (Negative) Urine Blood (Negative) Urine Nitrite (Negative) Urine Bilirubin (Negative) Urine Urobilinogen (<2.0) mg/dL Ur Leukocyte Esterase (Negative) Urine RBC (0-5) /hpf Urine WBC (0-5) /hpf Ur Squamous Epith Cells (0-4) /hpf Amorphous Sediment (None) /hpf Urine Bacteria (None) /hpf Urine Mucus (None) /hpf Acetone, Qual (Negative) Disposition Clinical Impression: Hyperglycemia due to type 2 diabetes mellitus Disposition: HOME SELF-CARE Condition: Good Instructions (If sedation given, give patient instructions): Diabetic Hyperglycemia (ED) Prescriptions: metFORMIN HCL [Glucophage] 500 mg PO BID #30 tab Is patient prescribed a controlled substance at d/c from ED?: No Referrals: Trini Sadler MD [Primary Care Provider] - 1-2 days
[2023-08-21 16:49] LABS: Glucose,Whole Blood 222 mg/dL (70-110)
[2023-08-21] MEDS: SODIUM CHLORIDE 0.9% 2,000 ML IV ONE (17:02)
[2023-08-21 17:35] LABS: ALT 31 U/L (4-34); AST 28 U/L (14-36); African American GFR (CKD) >90 (>60 ml/min/1.73 sqM); Albumin 4.1 g/dL (3.5-5.0); Alkaline Phosphatase 88 U/L (38-126); Anion Gap 10 mmol/L; Blood Urea Nitrogen 17 mg/dL (7-17); Carbon Dioxide 25 mmol/L (22-30); Chloride 103 mmol/L (98-107); Glucose 193 mg/dL (74-99); Non-African American GFR(CKD) 78 (>60 ml/min/1.73 sqM); Potassium 4.7 mmol/L (3.5-5.1); Sodium 138 mmol/L (137-145); Total Bilirubin 0.4 mg/dL (0.2-1.3); Total Protein 6.9 g/dL (6.3-8.2)
[2023-08-21 17:48] LABS: Basophils # (A) 0.1 k/uL (0-0.2); Basophils % (A) 1 %; Eosinophils # (A) 0.4 k/uL (0-0.7); Eosinophils % (A) 5 %; HCT 36.8 % (34.0-46.0); HGB 12.2 gm/dL (11.4-16.0); Lymphocytes % (A) 25 %; MCH 28.8 pg (25.0-35.0); MCHC 33.1 g/dL (31.0-37.0); MCV 87.2 fL (80.0-100.0); Mean Platelet Volume 7.2; Monocytes # (A) 0.5 k/uL (0-1.0); Monocytes % (A) 6 %; Neutrophils # (A) 4.9 k/uL (1.3-7.7); Neutrophils % (A) 61 %; Platelet Count 340 k/uL (150-450); RBC 4.22 m/uL (3.80-5.40); RDW 14.3 % (11.5-15.5)
[2023-08-21 17:56] LABS: Amorphous Sediment,Urine Rare /hpf; Appearance,Urine Cloudy (Clear); Bacteria,Urine Many /hpf; Bilirubin,Urine Negative (Negative); Blood,Urine Negative (Negative); Color,Urine Colorless; Glucose,Urine (UA) Trace (Negative); Ketones,Urine Negative (Negative); Leukocyte Esterase,Urine Large (Negative); Mucus,Urine Few /hpf; Nitrite,Urine Negative (Negative); PH, Urine 5.5 (5.0-8.0); Protein,Urine Negative (Negative); RBC,Urine 1 /hpf (0-5); Specific Gravity,Urine 1.008 (1.001-1.035); Squamous Epithelial Cell,Urine 21 /hpf (0-4); Urobilinogen,Urine <2.0 mg/dL (<2.0); WBC,Urine 35 /hpf (0-5)
[2023-08-21 18:28] LABS: Glucose,Whole Blood 106 mg/dL (70-110)
[2023-08-21] MEDS: metFORMIN 500 MG TAB PO STA (18:28)
[2023-08-21 18:53] VITALS: BP 139/76; PULSE 90; RESP 18; TEMP 98.1
== END 2023-08-21 18:30 | disposition home or self-care (01) ==
LOC: EC 15:24
DX: E11.65 Type 2 diabetes mellitus with hyperglycemia (principal); Z88.2 Allergy status to sulfonamides; Z88.8 Allergy status to other drugs, medicaments and biological substances; Z91.041 Radiographic dye allergy status; Z91.013 Allergy to seafood; Z86.16 Personal history of COVID-19
CPT/HCPCS: 36415; 80053; 81001; 82009; 85025; 96360; 99284

== ENCOUNTER → 2023-09-22 | Outpatient (CLI) | payer OTHER ==
[2023-09-22 15:45] LABS: Basophils # (A) 0.03 X 10*3/uL (0.00-0.10); Basophils % (A) 0.3 %; Eosinophils # (A) 0.79 X 10*3/uL (0.04-0.35); Eosinophils % (A) 8.1 %; HCT 39.8 % (37.2-46.3); HGB 12.2 g/dL (12.0-15.0); Lymphocytes # (A) 2.09 X 10*3/uL (0.90-5.00); Lymphocytes % (A) 21.3 %; MCH 27.7 pg (27.0-32.0); MCHC 30.7 g/dL (32.0-37.0); MCV 90.2 FL (80.0-97.0); Mean Platelet Volume 9.7 FL (9.5-12.2); Monocytes # (A) 0.63 X 10*3/uL (0.20-1.00); Monocytes % (A) 6.4 %; NRBC Per 100 WBC 0 X 10*3/uL (0.00-0.01); Neutrophils # (A) 6.16 X 10*3/uL (1.80-7.70); Neutrophils % (A) 62.9 %; Platelet Count 358 X 10*3/uL (140-440); RBC 4.41 X 10*6/uL (4.10-5.20); RDW 13.4 % (11.5-14.5)
[2023-09-22 15:49] LABS: Chloride 100 mmol/L (96-109); Chol/HDL Ratio 2.74 Ratio; Glucose 100 mg/dL (70-110); LDL Cholesterol,Calculated 102.3 mg/dL (0.0-131.0); Potassium 4.8 mmol/L (3.5-5.5); Sodium 141 mmol/L (135-145); VLDL Calculation 17.16 mg/dL (5.00-40.00)
[2023-09-22 15:50] LABS: ALT 81 U/L (8-44); AST 92 U/L (13-35); Albumin 4.4 g/dL (3.8-4.9); Albumin/Globulin Ratio 1.69 Ratio (1.60-3.17); Alkaline Phosphatase 141 U/L (41-126); Calcium 9.7 mg/dL (8.7-10.3); Globulin 2.6 g/dL (1.6-3.3); Total Bilirubin 0.2 mg/dL (0.3-1.2)
== END | disposition home or self-care (01) ==
LOC: LABWHC1 12:03
PROVIDERS: ATTEND Family Medicine
DX: I10 Essential (primary) hypertension (principal); E11.21 Type 2 diabetes mellitus with diabetic nephropathy; F41.9 Anxiety disorder, unspecified
CPT/HCPCS: 36415; 80053; 80061; 83036; 84443; 85025

== ENCOUNTER 2024-03-08 13:02 | Observation (INO) | payer OTHER ==
[2024-03-08 13:10] LABS: Glucose,Whole Blood 80 mg/dL (70-110)
[2024-03-08] MEDS: NITROGLYCERIN SL TABS 0.4 MG TAB SUBLINGUAL PRN (13:28)
[2024-03-08] MEDS: ASPIRIN 81 MG PO STA (13:28)
[2024-03-08] MEDS: SODIUM CHLORIDE 0.9% 1,000 ML IV STA ×2 (13:30→15:23)
--- NOTE | 2024-03-08 13:37 | ED ---
General Adult HPI - General Chief complaint: Chest Pain Stated complaint: chest pain Time Seen by Provider: 03/08/24 13:15 Source: patient, family, RN notes reviewed, old records reviewed Mode of arrival: ambulatory Limitations: no limitations - History of Present Illness Initial comments: Patient is a 58-year-old female who presents emergency department complaining of chest pain. States it started shortly before eating an early Thanksgiving meal approximately an hour to an hour and a half ago. States it is substernal with radiation down to her upper abdomen. Denies any significant diaphoresis or shortness of breath. Has a history of asthma, mental health, hypertension, GERD. States it seems different than that. Denies any cardiac history in her self but does state that both of her parents have a significant cardiac history. She denies any significant radiation of the pain. Endorses mild nausea. Presents for further evaluation at this time. States she has been having mild cough, congestion.Patient rates the pain as an 8 out of 10, it is somewhat sharp in sensation. Worse with certain movements. - Related Data Home Medications Medication Instructions Recorded Confirmed Albuterol Sulfate [Ventolin HFA] 1 - 2 puff INHALATION RT-Q6H PRN 02/20/20 09/11/20 metFORMIN HCL [Glucophage] 500 mg PO BID-W/MEALS 03/08/24 03/08/24 Allergies Allergy/AdvReac Type Severity Reaction Status Date / Time magnesium sulfate Allergy Severe paralysis Verified 03/08/24 14:48 iodine Allergy Rash/Hives Verified 03/08/24 14:48 shellfish derived [Shrimp] Allergy Rash/Hives Verified 03/08/24 14:48 Sulfates AdvReac Severe paralysis Uncoded 03/08/24 14:53 Review of Systems ROS Statement: Those systems with pertinent positive or pertinent negative responses have been documented in the HPI. Review of Systems: CONST: Denies fever EYES: Denies blurry vision ENT: Denies nasal congestion C/V: Endorses chest pain RESP: Denies shortness of breath GI: Denies abdominal pain : Denies dysuria SKIN: Denies rash. MSK: Denies joint pain. NEURO: Denies headache ROS Other: All systems not noted in ROS Statement are negative. Past Medical History Past Medical History: Asthma, Diabetes Mellitus, GERD/Reflux, Hyperlipidemia, Hypertension, Pneumonia Additional Past Medical History / Comment(s): ruptured ear drum(lt), palpatations, bronchits, migraines, hx rib fx, osteoporosis. Covid 02/03/20 ap proximately, hx ulcer, "pre diabetic"-watches diet, hx anemia History of Any Multi-Drug Resistant Organisms: None Reported Past Surgical History: Appendectomy, Breast Surgery Additional Past Surgical History / Comment(s): Fluid drained from left Breast Past Anesthesia/Blood Transfusion Reactions: Motion Sickness Additional Past Anesthesia/Blood Transfusion Reaction / Comment(s): claustrophobia, Past Psychological History: Anxiety, Depression, PTSD, Schizophrenia Smoking Status: Never smoker Past Alcohol Use History: None Reported Past Drug Use History: None Reported - Past Family History Mother Family Medical History: Cancer Additional Family Medical History / Comment(s): colon cancer, Father Family Medical History: Myocardial Infarction ([place]) Additional Family Medical History / Comment(s): ptsd ([place] war), at age 42-mi General Exam - General Exam Comments Initial Comments: General: Appears in no acute distress. HEAD: Normal with no signs of head trauma. EYES: PERRLA, EOMI, conjunctiva normal, no discharge. ENT: Hearing grossly intact, normal oropharynx. RESPIRATORY: Clear breath sounds bilaterally. No wheezes, rales, or rhonchi. C/V: Regular rate and rhythm. S1 and S2 auscultated, no edema, peripheral pulses 2+ and intact throughout ABD: Abd is soft, nontender, nondistended EXT: Normal range of motion, no obvious deformity. Chest pain reproducible on palpation of the sternum. Also reproducible on passive movement of the thorax. SKIN: No rashes or lesions observed on exposed skin. NEURO: Alert and oriented x 4. Limitations: no limitations Course Vital Signs 03/08/24 03/08/24 03/08/24 13:03 13:23 13:49 Temperature 99.1 F Pulse Rate 110 H 103 H 97 Respiratory 20 16 16 Rate Blood Pressure 119/63 127/104 93/61 O2 Sat by Pulse 97 96 96 Oximetry Medical Decision Making - Medical Decision Making Was pt. sent in by a medical professional or institution (, PA, AIR BRAKE OPERATOR, urgent care, hospital, or correction...) When possible be specific @ -No Did you speak to anyone other than the patient for history (EMS, parent, family, police, friend...)? What history was obtained from this source @ -No Did you review nursing and triage notes (agree or disagree)? Why? @ -I reviewed and agree with nursing and triage notes Were old charts reviewed (outside hosp., previous admission, EMS record, old EKG, old radiological studies, urgent care reports/EKG's, correction records)? Report findings @ -Reviewed prior EKG from January 2023. When compared with today's EKG, no dynamic changes. Differential Diagnosis (chest pain, altered mental status, abdominal pain women, abdominal pain men, vaginal bleeding, weakness, fever, dyspnea, syncope, headache, dizziness, GI bleed, back pain, seizure, CVA, palpatations, mental health, musculoskeletal)? @ -Differential Chest Pain: Stable Angina, Unstable Angina, STEMI, NSTEMI Aortic Dissection, Pneumothorax, Musculoskeletal, Esophageal Spasm GERD, Cholecystitis, Pancreatitis, Zoster, this is not meant to be an all-inclusive list. EKG interpreted by me (3pts min.). @ -As above X-rays interpreted by me (1pt min.). @ -Chest x-ray reveals no obvious acute cardiopulmonary process. CT interpreted by me (1pt min.). @ -None done U/S interpreted by me (1pt. min.). @ -None done What testing was considered but not performed or refused? (CT, X-rays, U/S, labs)? Why? @ -None What meds were considered but not given or refused? Why? @ -None Did you discuss the management of the patient with other professionals (professionals i.e. , PA, AIR BRAKE OPERATOR, lab, RT, psych nurse, manager social services, horse exerciser, teacher, human resource officer, casey saw operator)? Give summary @ - I discussed case with the admitting provider, Dr. James who accepted the admission. Was smoking cessation discussed for >3mins.? @ -No Was critical care preformed (if so, how long)? @ -No Were there social determinants of health that impacted care today? How? (Homelessness, low income, unemployed, alcoholism, drug addiction, transportation, low edu. Level, literacy, decrease access to med. care, senior living, rehab)? @ -No Was there de-escalation of care discussed even if they declined (Discuss DNR or withdrawal of care, Hospice)? DNR status @ -No What co-morbidities impacted this encounter? (DM, HTN, Smoking, COPD, CAD, Cancer, CVA, ARF, Chemo, Hep., AIDS, mental health diagnosis, sleep apnea, morbid obesity)? @ -diabetes Was patient admitted / discharged? Hospital course, mention meds given and route, prescriptions, significant lab abnormalities, going to OR and other pertinent info. @ -Patient presents emergency department complaining of substernal chest pain. On exam, does seem to be somewhat reproducible with movement and palpation. However cannot definitively rule out ACS etiology at this time. We will obtain cardiac workup. Vital signs within acceptable limits. Patient administered IV fluids, 324 mg of aspirin, and started on nitro sublingual tablets. Patient was in agreement this plan. EKG shows no signs of acute ischemia.Chest x-ray unremarkable. Laboratory studies remarkable for undetectable troponin. Negative viral swabs. The workup unremarkable. On reevaluation, pain improved with the nitroglycerin tablet after Nitropaste was applied. Patient is currently pain-free and resting comfortably. Discussed with her and I would like to be admitted to observation for cardiac monitoring and she was in agreement this plan. Cardiology consulted. Echo ordered. Will trend the troponin. Patient was in agreement this plan. I discussed case with the admitting provider, Dr. James who accepted the admission. Undiagnosed new problem with uncertain prognosis? @ -No Drug Therapy requiring intensive monitoring for toxicity (Heparin, Nitro, Insulin, Cardizem)? @ -No Were any procedures done? @ -No Diagnosis/symptom? @ -Chest pain Acute, or Chronic, or Acute on Chronic? @ -Acute Uncomplicated (without systemic symptoms) or Complicated (systemic symptoms)? @ -Complicated Side effects of treatment? @ -None Exacerbation, Progression, or Severe Exacerbation] @ -No Poses a threat to life or bodily function? @ -Potentially, yes if ACS - Lab Data Result diagrams: 03/08/24 13:52 03/08/24 13:52 Lab Results 03/08/24 03/08/24 03/08/24 Range/Units 13:09 13:24 13:52 WBC 9.4 (3.8-10.6) k/uL RBC 4.41 (3.80-5.40) m/uL Hgb 12.2 (11.4-16.0) gm/dL Hct 37.8 (34.0-46.0) % MCV 85.7 (80.0-100.0) fL MCH 27.7 (25.0-35.0) pg MCHC 32.4 (31.0-37.0) g/dL RDW 14.4 (11.5-15.5) % Plt Count 390 (150-450) k/uL MPV 6.6 Neutrophils % 59 % Lymphocytes % 28 % Monocytes % 5 % Eosinophils % 6 % Basophils % 1 % Neutrophils # 5.6 (1.3-7.7) k/uL Lymphocytes # 2.6 (1.0-4.8) k/uL Monocytes # 0.5 (0-1.0) k/uL Eosinophils # 0.5 (0-0.7) k/uL Basophils # 0.1 (0-0.2) k/uL PT (10.0-12.5) sec INR (<1.2) APTT (22.0-30.0) sec Sodium (137-145) mmol/L Potassium (3.5-5.1) mmol/L Chloride (98-107) mmol/L Carbon Dioxide (22-30) mmol/L Anion Gap mmol/L BUN (7-17) mg/dL Creatinine (0.52-1.04) mg/dL Est GFR (CKD-EPI)AfAm (>60 ml/min/1.73 sqM) Est GFR (CKD-EPI)NonAf (>60 ml/min/1.73 sqM) Glucose (74-99) mg/dL POC Glucose (mg/dL) 80 (70-110) mg/dL POC Glu Billet Sawyer ID [place] Calcium (8.4-10.2) mg/dL Magnesium (1.6-2.3) mg/dL Total Bilirubin (0.2-1.3) mg/dL AST (14-36) U/L ALT (4-34) U/L Alkaline Phosphatase (38-126) U/L Troponin I (0.000-0.034) ng/mL Total Protein (6.3-8.2) g/dL Albumin (3.5-5.0) g/dL Lipase (23-300) U/L Urine Color Urine Appearance (Clear) Urine pH (5.0-8.0) Ur Specific [place] (1.001-1.035) Urine Protein (Negative) Urine Glucose (UA) (Negative) Urine Ketones (Negative) Urine Blood (Negative) Urine Nitrite (Negative) Urine Bilirubin (Negative) Urine Urobilinogen (<2.0) mg/dL Ur Leukocyte Esterase (Negative) Influenza Type A (PCR) Not Detected (Not Detectd) Influenza Type B (PCR) Not Detected (Not Detectd) RSV (PCR) Not Detected (Not Detectd) SARS-CoV-2 (PCR) Not Detected (Not Detectd) 03/08/24 03/08/24 03/08/24 Range/Units 13:52 13:52 13:52 WBC (3.8-10.6) k/uL RBC (3.80-5.40) m/uL Hgb (11.4-16.0) gm/dL Hct (34.0-46.0) % MCV (80.0-100.0) fL MCH (25.0-35.0) pg MCHC (31.0-37.0) g/dL RDW (11.5-15.5) % Plt Count (150-450) k/uL MPV Neutrophils % % Lymphocytes % % Monocytes % % Eosinophils % % Basophils % % Neutrophils # (1.3-7.7) k/uL Lymphocytes # (1.0-4.8) k/uL Monocytes # (0-1.0) k/uL Eosinophils # (0-0.7) k/uL Basophils # (0-0.2) k/uL PT 10.6 (10.0-12.5) sec INR 1.0 (<1.2) APTT 23.8 (22.0-30.0) sec Sodium 136 L (137-145) mmol/L Potassium 4.7 (3.5-5.1) mmol/L Chloride 100 (98-107) mmol/L Carbon Dioxide 26 (22-30) mmol/L Anion Gap 10 mmol/L BUN 14 (7-17) mg/dL Creatinine 0.75 (0.52-1.04) mg/dL Est GFR (CKD-EPI)AfAm >90 (>60 ml/min/1.73 sqM) Est GFR (CKD-EPI)NonAf 90 (>60 ml/min/1.73 sqM) Glucose 100 H (74-99) mg/dL POC Glucose (mg/dL) (70-110) mg/dL POC Glu Billet Sawyer ID Calcium 9.6 (8.4-10.2) mg/dL Magnesium 1.9 (1.6-2.3) mg/dL Total Bilirubin 0.6 (0.2-1.3) mg/dL AST 28 (14-36) U/L ALT 24 (4-34) U/L Alkaline Phosphatase 96 (38-126) U/L Troponin I <0.012 (0.000-0.034) ng/mL Total Protein 7.8 (6.3-8.2) g/dL Albumin 4.7 (3.5-5.0) g/dL Lipase 89 (23-300) U/L Urine Color Urine Appearance (Clear) Urine pH (5.0-8.0) Ur Specific [place] (1.001-1.035) Urine Protein (Negative) Urine Glucose (UA) (Negative) Urine Ketones (Negative) Urine Blood (Negative) Urine Nitrite (Negative) Urine Bilirubin (Negative) Urine Urobilinogen (<2.0) mg/dL Ur Leukocyte Esterase (Negative) Influenza Type A (PCR) (Not Detectd) Influenza Type B (PCR) (Not Detectd) RSV (PCR) (Not Detectd) SARS-CoV-2 (PCR) (Not Detectd) 03/08/24 Range/Units 14:26 WBC (3.8-10.6) k/uL RBC (3.80-5.40) m/uL Hgb (11.4-16.0) gm/dL Hct (34.0-46.0) % MCV (80.0-100.0) fL MCH (25.0-35.0) pg MCHC (31.0-37.0) g/dL RDW (11.5-15.5) % Plt Count (150-450) k/uL MPV Neutrophils % % Lymphocytes % % Monocytes % % Eosinophils % % Basophils % % Neutrophils # (1.3-7.7) k/uL Lymphocytes # (1.0-4.8) k/uL Monocytes # (0-1.0) k/uL Eosinophils # (0-0.7) k/uL Basophils # (0-0.2) k/uL PT (10.0-12.5) sec INR (<1.2) APTT (22.0-30.0) sec Sodium (137-145) mmol/L Potassium (3.5-5.1) mmol/L Chloride (98-107) mmol/L Carbon Dioxide (22-30) mmol/L Anion Gap mmol/L BUN (7-17) mg/dL Creatinine (0.52-1.04) mg/dL Est GFR (CKD-EPI)AfAm (>60 ml/min/1.73 sqM) Est GFR (CKD-EPI)NonAf (>60 ml/min/1.73 sqM) Glucose (74-99) mg/dL POC Glucose (mg/dL) (70-110) mg/dL POC Glu Billet Sawyer ID Calcium (8.4-10.2) mg/dL Magnesium (1.6-2.3) mg/dL Total Bilirubin (0.2-1.3) mg/dL AST (14-36) U/L ALT (4-34) U/L Alkaline Phosphatase (38-126) U/L Troponin I (0.000-0.034) ng/mL Total Protein (6.3-8.2) g/dL Albumin (3.5-5.0) g/dL Lipase (23-300) U/L Urine Color Colorless Urine Appearance Clear (Clear) Urine pH 6.5 (5.0-8.0) Ur Specific [place] 1.009 (1.001-1.035) Urine Protein Negative (Negative) Urine Glucose (UA) Negative (Negative) Urine Ketones Negative (Negative) Urine Blood Negative (Negative) Urine Nitrite Negative (Negative) Urine Bilirubin Negative (Negative) Urine Urobilinogen <2.0 (<2.0) mg/dL Ur Leukocyte Esterase Negative (Negative) Influenza Type A (PCR) (Not Detectd) Influenza Type B (PCR) (Not Detectd) RSV (PCR) (Not Detectd) SARS-CoV-2 (PCR) (Not Detectd) - EKG Data -: EKG Interpreted by Me EKG Comments: 12-lead Electrocardiogram Interpretation Note EKG was reviewed and interpreted by myself. 12-lead ECG performed at 1310 is interpreted by me as revealing sinus tachycardia at a rate of 107 beats per minute. [place] is normal. MA interval is 139 ms, QRS duration is 83 ms, QTc is 405 ms.. There were no ST or T wave abnormalities to suggest myocardial ischemia or injury. R wave progression across the precordium was satisfactory. By my interpretation this EKG is non-diagnostic for acute ischemia. Disposition Clinical Impression: Chest pain Disposition: ADMITTED IP TO THIS HOSP Condition: Stable Referrals: Trini Sadler MD [Primary Care Provider] - 1-2 days Time of Disposition: 14:59
[2024-03-08] MEDS: ONDANSETRON 4 MG/2 ML VIAL IVP STA (13:55)
[2024-03-08 14:10] LABS: Basophils # (A) 0.1 k/uL (0-0.2); Basophils % (A) 1 %; Eosinophils # (A) 0.5 k/uL (0-0.7); Eosinophils % (A) 6 %; HCT 37.8 % (34.0-46.0); HGB 12.2 gm/dL (11.4-16.0); Lymphocytes # (A) 2.6 k/uL (1.0-4.8); Lymphocytes % (A) 28 %; MCH 27.7 pg (25.0-35.0); MCHC 32.4 g/dL (31.0-37.0); MCV 85.7 fL (80.0-100.0); Mean Platelet Volume 6.6; Monocytes # (A) 0.5 k/uL (0-1.0); Monocytes % (A) 5 %; Neutrophils # (A) 5.6 k/uL (1.3-7.7); Neutrophils % (A) 59 %; Platelet Count 390 k/uL (150-450); RBC 4.41 m/uL (3.80-5.40); RDW 14.4 % (11.5-15.5); WBC 9.4 k/uL (3.8-10.6)
[2024-03-08 14:19] LABS: Partial Thromboplastin Time 23.8 sec (22.0-30.0); Prothrombin Time 10.6 sec (10.0-12.5)
--- NOTE | 2024-03-08 14:20 | XR ---
EXAMINATION TYPE: XR chest 2V DATE OF EXAM: 03/08/2024 2:16 PM COMPARISON: Previous chest radiograph 08/20/2019. CLINICAL INDICATION: Female, 58 years old with history of Chest Pain; [facility] TECHNIQUE: XR chest 2V Frontal and lateral views of the chest. FINDINGS: Lungs/Pleura: There is no evidence of pleural effusion, focal consolidation, or pneumothorax. Pulmonary vascularity: Unremarkable. Heart/mediastinum: Cardiomediastinal silhouette is unremarkable. Musculoskeletal: No acute osseous pathology. Other findings: None IMPRESSION: No acute cardiopulmonary disease/process. [facility], , 03/08/2024 2:17 PM
[2024-03-08 14:24] LABS: ALT 24 U/L (4-34); African American GFR (CKD) >90 (>60 ml/min/1.73 sqM); Albumin 4.7 g/dL (3.5-5.0); Anion Gap 10 mmol/L; Blood Urea Nitrogen 14 mg/dL (7-17); Calcium 9.6 mg/dL (8.4-10.2); Carbon Dioxide 26 mmol/L (22-30); Chloride 100 mmol/L (98-107); Glucose 100 mg/dL (74-99); Lipase 89 U/L (23-300); Non-African American GFR(CKD) 90 (>60 ml/min/1.73 sqM); Sodium 136 mmol/L (137-145); Total Bilirubin 0.6 mg/dL (0.2-1.3); Total Protein 7.8 g/dL (6.3-8.2)
[2024-03-08 14:25] LABS: AST 28 U/L (14-36); Alkaline Phosphatase 96 U/L (38-126); Magnesium 1.9 mg/dL (1.6-2.3); Potassium 4.7 mmol/L (3.5-5.1)
[2024-03-08 14:35] LABS: Appearance,Urine Clear (Clear); Bilirubin,Urine Negative (Negative); Blood,Urine Negative (Negative); Color,Urine Colorless; Glucose,Urine (UA) Negative (Negative); Ketones,Urine Negative (Negative); Leukocyte Esterase,Urine Negative (Negative); Nitrite,Urine Negative (Negative); PH, Urine 6.5 (5.0-8.0); Protein,Urine Negative (Negative); Specific Gravity,Urine 1.009 (1.001-1.035); Urobilinogen,Urine <2.0 mg/dL (<2.0)
[2024-03-08] MEDS ORDERED: NALOXONE 0.4 MG/ML 1 ML VIAL IV PRN (14:52)
[2024-03-08] MEDS ORDERED: ONDANSETRON 4 MG/2 ML VIAL IVP PRN (14:52)
[2024-03-08] MEDS ORDERED: ACETAMINOPHEN TAB 325 MG TAB PO PRN (14:52)
[2024-03-08] MEDS: NITROGLYCERIN OINT 1 INCH/GM PACKET TOPICAL SCH (15:23)
[2024-03-08] MEDS: HEPARIN SODIUM,PORCINE 5,000 UNIT/ML 1 ML VIAL SQ SCH (15:35)
[2024-03-08] MEDS: SODIUM CHLORIDE 0.9% 1,000 ML IV SCH (17:00)
[2024-03-08] MEDS ORDERED: ALPRAZolam 1 MG TAB PO PRN (17:08)
[2024-03-08] MEDS ORDERED: BENZTROPINE MESYLATE 1 MG TAB PO PRN (17:08)
[2024-03-08] MEDS ORDERED: ALBUTEROL NEBULIZED 2.5 MG/3 ML INHALATION PRN (17:08)
[2024-03-08] MEDS: metFORMIN 500 MG TAB PO SCH (18:34)
[2024-03-08] MEDS: PANTOPRAZOLE 40 MG/10 ML VIAL IVP SCH (18:41)
[2024-03-08] MEDS: SYMBICORT 160-4.5 MCG INHALER INHALATION SCH (19:48)
[2024-03-08] MEDS: AMITRIPTYLINE HCL 50 MG TAB PO SCH (21:25)
[2024-03-08] MEDS: OLANZapine 2.5 MG TAB PO SCH (21:25)
[2024-03-09 08:11] LABS: Glucose,Whole Blood 107 mg/dL (70-110)
--- NOTE | 2024-03-09 08:16 | US ---
EXAMINATION TYPE: US abdomen limited DATE OF EXAM: 03/09/2024 COMPARISON: CT: 03/10/16 CLINICAL INDICATION: Female, 58 years old with history of epigastric pain; epigastric pain yesterday TECHNIQUE: Grayscale and color Doppler imaging of the right upper quadrant was performed. FINDINGS: EXAM MEASUREMENTS: Liver Length: 12.3 cm Gallbladder Wall: 0.19 cm CBD: 0.26 cm Right Kidney: 9.3 x 5.2 x 4.2 cm OPERATING ROOM NURSE NOTES: Pancreas: parts seen appear wnl Liver: heterogeneous Gallbladder: multiple echogenic foci seen Evidence for sonographic Cisneros's sign: No CBD: wnl Right Kidney: wnl IMPRESSION: 1. Heterogeneous pattern to the liver is nonspecific can be seen with hepatocellular disease includin g hepatic steatosis. 2. Cholelithiasis with no ultrasound evidence of cholecystitis. [facility], , 03/09/2024 8:13 AM
--- NOTE | 2024-03-09 09:45 | P.HPIM ---
History of Present Illness H&P Date: 03/09/24 Maryann Gregory, 88-year-old female who presented to [facility] emergency room with a chief complaint of chest pain. Patient states that she had a pressure sensation in the middle of her chest that lasted about 1 hour. She denies any previous history of coronary artery disease angina or myocardial infarction, she stated that she had a previous history of pleurisy. She was evaluated in the emergency room vital examination on presentation revealed a temperature of 99.1 pulse 110 respiration 20 blood pressure 119/63 pulse ox 97% on room air Laboratory data revealed a white blood count of 9.4 hemoglobin 12.2 platelet count 390 BUN 14 creatinine 0.75 troponin 0.012 Testing in the emergency room revealed chest x-ray revealed no acute cardiopulmonary disease, EKG revealed sinus tachycardia, otherwise no acute abnormality Patient was admitted to medical floor for further evaluation and treatment, serial troponin level were ordered cardiology consultation was requested Past Medical History Past Medical History: Asthma, Diabetes Mellitus, GERD/Reflux, Hyperlipidemia, Hypertension, Pneumonia Additional Past Medical History / Comment(s): ruptured ear drum(lt), palpatations, bronchits, migraines, hx rib fx, osteoporosis. Covid 02/03/20 approximately, hx ulcer, "pre diabetic"-watches diet, hx anemia History of Any Multi-Drug Resistant Organisms: None Reported Past Surgical History: Appendectomy, Breast Surgery Additional Past Surgical History / Comment(s): Fluid drained from left Breast Past Anesthesia/Blood Transfusion Reactions: Motion Sickness Additional Past Anesthesia/Blood Transfusion Reaction / Comment(s): claustrophobia, Past Psychological History: Anxiety, Depression, PTSD, Schizophrenia Additional Psychological History / Comment(s): DISSASSOCIATIVE DISORDER, schizophrenic, ptsd, claustrophobia Smoking Status: Never smoker Past Alcohol Use History: None Reported Past Drug Use History: None Reported Additional Drug Use History / Comment(s): . - Past Family History Mother Family Medical History: Cancer Additional Family Medical History / Comment(s): colon cancer, Father Family Medical History: Myocardial Infarction ([place]) Additional Family Medical History / Comment(s): ptsd ([place]), at age 42-mi Medications and Allergies Home Medications Medication Instructions Recorded Confirmed Type Albuterol Sulfate [Ventolin HFA] 1 puff INHALATION RT-Q4H PRN 02/20/20 03/08/24 History ALPRAZolam [Xanax] 1 mg PO TID PRN 03/08/24 03/08/24 History Amitriptyline HCl [Elavil] 100 mg PO HS 03/08/24 03/08/24 History Benztropine Mesylate [Cogentin] 1 mg PO BID PRN 03/08/24 03/08/24 History Budesonide/Formoterol Fumarate 2 puff INHALATION RT-BID 03/08/24 03/08/24 History [Symbicort 160-4.5 Mcg Inhaler] FLUoxetine HCL [Sarafem] 60 mg PO DAILY 03/08/24 03/08/24 History OLANZapine [ZyPREXA] 2.5 mg PO HS 03/08/24 03/08/24 History lisinopriL [Zestril] 20 mg PO DAILY 03/08/24 03/08/24 History metFORMIN HCL [Glucophage] 500 mg PO BID-W/MEALS 03/08/24 03/08/24 History Allergies Allergy/AdvReac Type Severity Reaction Status Date / Time magnesium sulfate Allergy Severe paralysis Verified 03/08/24 14:48 iodine Allergy Rash/Hives Verified 03/08/24 14:48 shellfish derived [Shrimp] Allergy Rash/Hives Verified 03/08/24 14:48 Sulfates AdvReac Severe paralysis Uncoded 03/08/24 14:53 Physical Exam Vitals: Vital Signs Temp Pulse Pulse Resp BP BP BP 03/09/24 07:00 97.9 F 96 15 127/84 03/09/24 02:00 97.7 F 89 18 101/67 03/08/24 18:39 98.6 F 100 16 96/57 03/08/24 16:51 98.2 F 85 16 133/61 03/08/24 16:17 91 14 129/64 03/08/24 15:20 91 16 129/64 03/08/24 13:49 97 16 93/61 03/08/24 13:23 103 H 16 127/104 03/08/24 13:03 99.1 F 110 H 20 119/63 Pulse Ox 03/09/24 07:00 99 03/09/24 02:00 98 03/08/24 18:39 99 03/08/24 16:51 97 03/08/24 16:17 98 03/08/24 15:20 98 03/08/24 13:49 96 03/08/24 13:23 96 03/08/24 13:03 97 Intake and Output 03/08/24 03/09/24 03/09/24 22:59 06:59 14:59 Intake Total 358 240 0 Balance 358 240 0 Intake: Oral 358 240 0 Other: Voiding Method Toilet # Voids 2 1 Weight 74.843 kg In general patient is alert and oriented x 3 in no distress HEENT head normocephalic and atraumatic Neck is supple no JVD no goiter no lymphadenopathy no carotid bruit Chest examination is clear to auscultation no crackles no wheezing Cardiac exam reveals regular heart sounds S1 and S2 no gallops no murmurs Abdomen is soft nontender no organomegaly with normal bowel sounds Extremity exam reveals no edema no cyanosis or clubbing Neurological examination reveals no gross focal deficits Results CBC & Chem 7: 03/08/24 13:52 03/08/24 13:52 Labs: Abnormal Lab Results - Last 24 Hours (Table) 03/08/24 Range/Units 13:52 Sodium 136 L (137-145) mmol/L Glucose 100 H (74-99) mg/dL Thrombosis Risk Factor Assmnt - Choose All That Apply Any of the Below Risk Factors Present?: Yes Each Factor Represents 1 point: Age 41-60 years, Obesity (BMI >25) Thrombosis Risk Factor Assessment Total Risk Factor Score: 2 Thrombosis Risk Factor Assessment Level: Low Risk Assessment and Plan Plan: Episode of chest pain Previous history of pleurisy Underlying history of asthma maintained on Ventolin inhaler Underlying history of [id number] diabetes mellitus maintained on metformin Underlying history of gastroesophageal reflux disease Underlying history of hypertension Underlying history of hyperlipidemia At this time patient was seen and examined Home medications reviewed and reordered Serial cardiac enzymes ordered Echocardiogram ordered and cardiology consultation requested Will follow closely
[2024-03-09] MEDS: FLUoxetine HCL 20 MG CAP PO SCH (10:05)
[2024-03-09] MEDS: lisinopriL 20 MG TAB PO SCH (10:05)
[2024-03-09 10:37] LABS: Basophils # (A) 0.06 X 10*3/uL (0.00-0.10); Eosinophils % (A) 6.5 %; HGB 10.8 g/dL (12.0-15.0); Lymphocytes # (A) 1.87 X 10*3/uL (0.90-5.00); Lymphocytes % (A) 30.4 %; MCH 26.9 pg (27.0-32.0); MCHC 29.2 g/dL (32.0-37.0); MCV 92.3 FL (80.0-97.0); Mean Platelet Volume 9.4 FL (9.5-12.2); Monocytes # (A) 0.43 X 10*3/uL (0.20-1.00); NRBC Per 100 WBC 0 X 10*3/uL (0.00-0.01); Neutrophils # (A) 3.36 X 10*3/uL (1.80-7.70); Neutrophils % (A) 54.6 %; Platelet Count 300 X 10*3/uL (140-440); RBC 4.01 X 10*6/uL (4.10-5.20); RDW 14.2 % (11.5-14.5); WBC 6.15 X 10*3/uL (4.50-10.00)
[2024-03-09 10:48] LABS: ALT 19 U/L (8-44); AST 22 U/L (13-35); Albumin 4.1 g/dL (3.8-4.9); Albumin/Globulin Ratio 1.78 Ratio (1.60-3.17); Alkaline Phosphatase 87 U/L (41-126); BUN/Creat Ratio 14.25 Ratio (12.00-20.00); Blood Urea Nitrogen 11.4 mg/dL (9.0-27.0); Calcium 8.7 mg/dL (8.7-10.3); Carbon Dioxide 23.8 mmol/L (21.6-31.8); Chloride 106 mmol/L (96-109); Globulin 2.3 g/dL (1.6-3.3); Glucose 95 mg/dL (70-110); Potassium 4.6 mmol/L (3.5-5.5); Sodium 143 mmol/L (135-145); Total Bilirubin 0.3 mg/dL (0.3-1.2); Total Protein 6.4 g/dL (6.2-8.2)
[2024-03-09 11:32] LABS: Glucose,Whole Blood 86 mg/dL (70-110)
--- NOTE | 2024-03-09 13:19 | P.CRDCN ---
History of Present Illness Consult date: 03/09/24 History of present illness: History of Present Illness: The patient is a 58-year-old female with no prior cardiac history who yesterday while watching TV had an episode of discomfort in the chest that radiated to the left arm. The discomfort lasted for about an hour. It was not associated with any other symptoms. She had similar symptoms in the past with pleurisy but had no recent episodes. She is active physically without associated dyspnea or chest discomfort except when she has an episode of asthma, she gets dyspneic. She had episode of falling but no syncope. She denies any peripheral edema, PND or orthopnea. She has no palpitations. She has no recent cardiac workup. Her coronary risks factor are positive for diabetes, she is a non-smoker. She has a history of hypertension Medications: Metformin 500 mg twice a day, Xanax, Symbicort, lisinopril 20 mg daily Review of Systems: Respiratory: She has episodes of dyspnea related to her asthma GI: No nausea or vomiting . No history of peptic ulcer disease. No recent GI bleed. : No hematuria or dysuria. Nervous System: No stroke or seizure. Physical Examination: 58-year-old female, alert oriented no apparent distress,Blood pressure 127/80, Heart rate 90 Head: Normocephalic. Eyes: Sclerae nonicteric. Neck: Good carotid upstroke, no bruit, no jugular venous distention. Lungs: Clear to auscultation. Heart: Regular rate and rhythm, S1-S2, no S3, no rub. No murmur. Abdomen: Soft nontender, positive bowel sounds no organomegaly. Extremities: No edema, intact distal pulses. Labs: Hemoglobin 10.8, BUN 11.4, creatinine 0.8. Troponin less than 0.012., Chest x- ray with no acute changes EKG: Sinus mechanism rate of [address] segment changes Impression: 1. Chest discomfort appears to be noncardiac in etiology 2. History of hypertension 3. History of diabetes 4. History of falls with no syncope Plan: 1. Continue present therapy 2. Obtain an echocardiogram with Doppler 3. If there is no evidence of segmental wall motion abnormality the patient s hould be able to be discharged home and followed as an outpatient to undergo further testing if needed 4. Thank you for this consult we will follow with you Past Medical History Past Medical History: Asthma, Diabetes Mellitus, GERD/Reflux, Hyperlipidemia, Hy pertension, Pneumonia Additional Past Medical History / Comment(s): ruptured ear drum(lt), palpatations, bronchits, migraines, hx rib fx, osteoporosis. Covid 02/03/20 approximately, hx ulcer, "pre diabetic"-watches diet, hx anemia History of Any Multi-Drug Resistant Organisms: None Reported Past Surgical History: Appendectomy, Breast Surgery Additional Past Surgical History / Comment(s): Fluid drained from left Breast Past Anesthesia/Blood Transfusion Reactions: Motion Sickness Additional Past Anesthesia/Blood Transfusion Reaction / Comment(s): claustrophobia, Past Psychological History: Anxiety, Depression, PTSD, Schizophrenia Additional Psychological History / Comment(s): DISSASSOCIATIVE DISORDER, schizophrenic, ptsd, claustrophobia Smoking Status: Never smoker Past Alcohol Use History: None Reported Past Drug Use History: None Reported Additional Drug Use History / Comment(s): . - Past Family History Mother Family Medical History: Cancer Additional Family Medical History / Comment(s): colon cancer, Father Family Medical History: Myocardial Infarction ([place]) Additional Family Medical History / Comment(s): ptsd ([place] war), at age 42-mi Medications and Allergies Home Medications Medication Instructions Recorded Confirmed Type Albuterol Sulfate [Ventolin HFA] 1 puff INHALATION RT-Q4H PRN 02/20/20 03/08/24 History ALPRAZolam [Xanax] 1 mg PO TID PRN 03/08/24 03/08/24 History Amitriptyline HCl [Elavil] 100 mg PO HS 03/08/24 03/08/24 History Benztropine Mesylate [Cogentin] 1 mg PO BID PRN 03/08/24 03/08/24 History Budesonide/Formoterol Fumarate 2 puff INHALATION RT-BID 03/08/24 03/08/24 History [Symbicort 160-4.5 Mcg Inhaler] FLUoxetine HCL [Sarafem] 60 mg PO DAILY 03/08/24 03/08/24 History OLANZapine [ZyPREXA] 2.5 mg PO HS 03/08/24 03/08/24 History lisinopriL [Zestril] 20 mg PO DAILY 03/08/24 03/08/24 History metFORMIN HCL [Glucophage] 500 mg PO BID-W/MEALS 03/08/24 03/08/24 History Allergies Allergy/AdvReac Type Severity Reaction Status Date / Time magnesium sulfate Allergy Severe paralysis Verified 03/08/24 14:48 iodine Allergy Rash/Hives Verified 03/08/24 14:48 shellfish derived [Shrimp] Allergy Rash/Hives Verified 03/08/24 14:48 Sulfates AdvReac Severe paralysis Uncoded 03/08/24 14:53 Physical Exam Vitals: Vital Signs Temp Pulse Pulse Resp BP BP BP 03/09/24 07:00 97.9 F 96 15 127/84 03/09/24 02:00 97.7 F 89 18 101/67 03/08/24 18:39 98.6 F 100 16 96/57 03/08/24 16:51 98.2 F 85 16 133/61 03/08/24 16:17 91 14 129/64 03/08/24 15:20 91 16 129/64 03/08/24 13:49 97 16 93/61 03/08/24 13:23 103 H 16 127/104 Pulse Ox 03/09/24 07:00 99 03/09/24 02:00 98 03/08/24 18:39 99 03/08/24 16:51 97 03/08/24 16:17 98 03/08/24 15:20 98 03/08/24 13:49 96 03/08/24 13:23 96 Intake and Output 03/08/24 03/09/24 03/09/24 22:59 06:59 14:59 Intake Total 358 240 0 Balance 358 240 0 Intake: Oral 358 240 0 Other: Voiding Method Toilet # Voids 2 1 Weight 74.843 kg Results 03/09/24 07:15 03/09/24 07:15 Cardiac Enzymes 03/08/24 03/08/24 03/08/24 Range/Units 13:52 13:52 16:54 AST 28 (14-36) U/L Troponin I <0.012 <0.012 (0.000-0.034) ng/mL 03/08/24 03/09/24 Range/Units 19:56 07:15 AST 22 (14-36) U/L Troponin I <0.012 (0.000-0.034) ng/mL Coagulation 03/08/24 Range/Units 13:52 PT 10.6 (10.0-12.5) sec APTT 23.8 (22.0-30.0) sec CBC 03/08/24 03/09/24 Range/Units 13:52 07:15 WBC 9.4 6.15 (3.8-10.6) k/uL RBC 4.41 4.01 L (3.80-5.40) m/uL Hgb 12.2 10.8 L (11.4-16.0) gm/dL Hct 37.8 37.0 L (34.0-46.0) % Plt Count 390 300 (150-450) k/uL Comprehensive Metabolic Panel 03/08/24 03/09/24 Range/Units 13:52 07:15 Sodium 136 L 143 (137-145) mmol/L Potassium 4.7 4.6 (3.5-5.1) mmol/L Chloride 100 106 (98-107) mmol/L Carbon Dioxide 26 23.8 (22-30) mmol/L BUN 14 11.4 (7-17) mg/dL Creatinine 0.75 0.8 (0.52-1.04) mg/dL Glucose 100 H 95 (74-99) mg/dL Calcium 9.6 8.7 (8.4-10.2) mg/dL AST 28 22 (14-36) U/L ALT 24 19 (4-34) U/L Alkaline Phosphatase 96 87 (38-126) U/L Total Protein 7.8 6.4 (6.3-8.2) g/dL Albumin 4.7 4.1 (3.5-5.0) g/dL Current Medications Generic Name Dose Route Start Last Admin Trade Name Freq PRN Reason Stop Dose Admin Acetaminophen 650 mg 03/08/24 14:52 Acetaminophen Tab 325 Mg Tab PO Q6HR PRN Mild Pain or Fever > 100.5 Albuterol Sulfate 2.5 mg 03/08/24 17:08 Albuterol Nebulized 2.5 Mg/3 Ml INHALATION RT-Q4H PRN Shortness Of Breath Alprazolam 1 mg 03/08/24 17:08 Alprazolam 1 Mg Tab PO TID PRN Anxiety Amitriptyline HCl 100 mg 03/08/24 21:00 03/08/24 21:25 Amitriptyline Hcl 50 Mg Tab PO 100 mg HS [facility] Administration Benztropine Mesylate 1 mg 03/08/24 17:08 Benztropine Mesylate 1 Mg Tab PO BID PRN TREMORS Budesonide/Formoterol Fumarate 2 puff 03/08/24 20:00 03/09/24 08:13 Symbicort 160-4.5 Mcg Inhaler INHALATION Not Given RT-BID [facility] Fluoxetine HCl 60 mg 03/09/24 09:00 03/09/24 10:05 Fluoxetine Hcl 20 Mg Cap PO 60 mg DAILY [facility] Administration Heparin Sodium (Porcine) 5,000 unit 03/08/24 16:00 03/09/24 10:05 Heparin Sodium,Porcine 5,000 Unit/Ml 1 Ml Vial SQ 5,000 unit Q8HR [facility] Administration Lisinopril 20 mg 03/09/24 09:00 03/09/24 10:05 Lisinopril 20 Mg Tab PO 20 mg DAILY [facility] Administration Metformin HCl 500 mg 03/08/24 17:30 03/09/24 11:09 Metformin 500 Mg Tab PO 500 mg BID-W/MEALS [facility] Administration Naloxone HCl 0.2 mg 03/08/24 14:52 Naloxone 0.4 Mg/Ml 1 Ml Vial IV Q2M PRN Opioid Reversal Nitroglycerin 0.5 inch 03/08/24 16:00 03/09/24 10:01 Nitroglycerin Oint 1 Inch/Gm Packet TOPICAL Not Given Q8HR [facility] Olanzapine 2.5 mg 03/08/24 21:00 03/08/24 21:25 Olanzapine 2.5 Mg Tab PO 2.5 mg HS [facility] Administration Ondansetron HCl 4 mg 03/08/24 14:52 Ondansetron 4 Mg/2 Ml Vial IVP Q8HR PRN Nausea And Vomiting Pantoprazole Sodium 40 mg 03/08/24 17:15 03/09/24 10:05 Pantoprazole 40 Mg/10 Ml Vial IVP 40 mg DAILY [facility] Administration Intake and Output 03/08/24 03/09/24 03/09/24 22:59 06:59 14:59 Intake Total 358 240 0 Balance 358 240 0 Intake: Oral 358 240 0 Other: Voiding Method Toilet # Voids 2 1 Weight 74.843 kg 03/09/24 07:15 03/09/24 07:15
[2024-03-09 14:19] VITALS: BP 105/73; PULSE 104; RESP 18; TEMP 98.4
--- NOTE | 2024-03-09 15:37 | CA ---
Transthoracic Echo Report Name: Maryann Gregory Age: 58 Gender: F : 1965 Exam Date: 03/09/2024 09:44 Exam Location: [place] [facility] Ht (in): 61 Wt (lb): 165 Ordering Physician: Sadiq Frost MD Attending/Referring Phys: Final Application Reviewer Anali Tucker RDCS Procedure CPT: Indications: Chest Pain Cardiac Hx: Technical Quality: Fair Contrast 1: Total Dose (mL): Contrast 2: Total Dose (mL): MEASUREMENTS (Male / Female) Normal Values 2D ECHO LV Diastolic Diameter PLAX 3.6 cm 4.2 - 5.9 / 3.9 - 5.3 cm LV Systolic Diameter PLAX 2.1 cm IVS Diastolic Thickness 1.1 cm 0.6 - 1.0 / 0.6 - 0.9 cm LVPW Diastolic Thickness 0.9 cm 0.6 - 1.0 / 0.6 - 0.9 cm LV Relative Wall Thickness 0.6 RV Internal Dim ED PLAX 1.8 cm LA Systolic Diameter LX 3.0 cm 3.0 - 4.0 / 2.7 - 3.8 cm LV Diastolic Volume MOD BP 35.4 cm??? 67 - 155 / 56 - 104 cm??? LV Systolic Volume MOD BP 19.8 cm??? 22 - 58 / 19 - 49 cm??? LV Ejection Fraction MOD BP 43.9 % >= 55 % LV Cardiac Index MOD BP 841.8 cm???/min???m??? LV Diastolic Volume MOD 4C 30.3 cm??? LV Systolic Volume MOD 4C 16.4 cm??? LV Ejection Fraction MOD 4C 45.8 % LV Cardiac Index MOD 4C 753.2 cm???/min???m??? LV Diastolic Length 4C 6.1 cm LV Systolic Length 4C 5.1 cm LV Diastolic Volume MOD 2C 37.8 cm??? LV Systolic Volume MOD 2C 20.9 cm??? LV Ejection Fraction MOD 2C 44.7 % LV Cardiac Index MOD 2C 917.3 cm???/min???m??? LV Diastolic Length 2C 6.7 cm LV Systolic Length 2C 6.0 cm LA Volume 42.5 cm??? 18 - 58 / 22 - 52 cm??? LA Volume Index 23.3 cm???/m??? 16 - 28 cm???/m??? M-MODE Aortic Root Diameter MM 2.7 cm LA Systolic Diameter MM 3.4 cm LA Ao Ratio MM 1.3 AV Cusp Separation MM 1.7 cm DOPPLER MV Area PHT 4.0 cm??? Mitral E Point Velocity 128.1 cm/s Mitral A Point Velocity 126.0 cm/s Mitral E to A Ratio 1.0 MV Deceleration Time 190.2 ms TR Peak Velocity 269.1 cm/s TR Peak Gradient 29.0 mmHg FINDINGS Left Ventricle Left ventricular ejection fraction is estimated at 55-60 %. Normal left ventricular systolic function with no obvious regional wall motion abnormalities. Left ventricular cavity size normal. Right Ventricle Normal right ventricular size and function. Right ventricular systolic pressure within normal limits. Right Atrium Normal right atrial size. Left Atrium Mild left atrial dilatation. Mitral Valve Structurally normal mitral valve. Mitral annular calcification. Mild mitral regurgitation. Aortic Valve Trileaflet aortic valve. No aortic valve stenosis or regurgitation. Tricuspid Valve Structurally normal tricuspid valve. Mild tricuspid regurgitation. No tricuspid stenosis. Pulmonic Valve Structurally normal pulmonic valve. Trace pulmonic regurgitation. No pulmonic stenosis. Pericardium No pericardial or pleural effusion. Aorta Normal size aortic root and proximal ascending aorta. CONCLUSIONS 1. Normal left ventricular size and systolic function 2. Mild mitral and tricuspid regurgitation Previewed by: Dr. Dustin Padilla MD (Electronically Signed) Final Date: 09 March 2024 15:36
[2024-03-09 17:22] LABS: Glucose,Whole Blood 109 mg/dL (70-110)
--- NOTE | 2024-03-14 12:35 | P.DS ---
Providers Date of admission: 03/08/24 14:57 Expected date of discharge: 03/09/24 Attending physician: Madan James Consults: 03/08/24 14:52 Consult Physician Routine Consulting Provider: [facility] Consult Reason/Comments: chest pain Do you want consulting provider notified?: Yes Primary care physician: Trini Sadler Hospital Course: Diagnosis om discharge: Episode of chest pain Previous history of pleurisy Underlying history of asthma maintained on Ventolin inhaler Underlying history of itc-[id number]-[id number] diabetes mellitus maintained on metformin Underlying history of gastroesophageal reflux disease Underlying history of hypertension Underlying history of hyperlipidemia Hospital course: Maryann Gregory, 88-year-old female who presented to [facility] emergency room with a chief complaint of chest pain. Patient states that she had a pressure sensation in the middle of her chest that lasted about 1 hour. She denies any previous history of coronary artery disease angina or myocardial infarction, she stated that she had a previous history of pleurisy. She was evaluated in the emergency room vital examination on presentation revealed a temperature of 99.1 pulse 110 respiration 20 blood pressure 119/63 pulse ox 97% on room air Laboratory data revealed a white blood count of 9.4 hemoglobin 12.2 platelet count 390 BUN 14 creatinine 0.75 troponin 0.012 Testing in the emergency room revealed chest x-ray revealed no acute cardiopulmonary disease, EKG revealed sinus tachycardia, otherwise no acute abnormality Patient was admitted to medical floor for further evaluation and treatment, serial troponin level were ordered cardiology consultation was requested On 03/09/2024 patient was evaluated by cardiology services. Per cardiology chest discomfort appears to be noncardiac in etiology 2D echo was completed patient to follow-up with PCP for further management Patient Condition at Discharge: Stable Plan - Discharge Summary Discharge Rx Participant: No New Discharge Prescriptions: Continue Albuterol Sulfate [Ventolin HFA] 1 puff INHALATION RT-Q4H PRN PRN Reason: Shortness Of Breath lisinopriL [Zestril] 20 mg PO DAILY Benztropine Mesylate [Cogentin] 1 mg PO BID PRN PRN Reason: TREMORS Budesonide/Formoterol Fumarate [Symbicort 160-4.5 Mcg Inhaler] 2 puff INHALATION RT-BID metFORMIN HCL [Glucophage] 500 mg PO BID-W/MEALS FLUoxetine HCL [Sarafem] 60 mg PO DAILY ALPRAZolam [Xanax] 1 mg PO TID PRN PRN Reason: Anxiety OLANZapine [ZyPREXA] 2.5 mg PO HS Amitriptyline HCl [Elavil] 100 mg PO HS Discharge Medication List Albuterol Sulfate [Ventolin HFA] 1 puff INHALATION RT-Q4H PRN 02/20/20 [History] ALPRAZolam [Xanax] 1 mg PO TID PRN 03/08/24 [History] Amitriptyline HCl [Elavil] 100 mg PO HS 03/08/24 [History] Benztropine Mesylate [Cogentin] 1 mg PO BID PRN 03/08/24 [History] Budesonide/Formoterol Fumarate [Symbicort 160-4.5 Mcg Inhaler] 2 puff INHALATION RT-BID 03/08/24 [History] FLUoxetine HCL [Sarafem] 60 mg PO DAILY 03/08/24 [History] OLANZapine [ZyPREXA] 2.5 mg PO HS 03/08/24 [History] lisinopriL [Zestril] 20 mg PO DAILY 03/08/24 [History] metFORMIN HCL [Glucophage] 500 mg PO BID-W/MEALS 03/08/24 [History] Follow up Appointment(s)/Referral(s): Trini Sadler MD [Primary Care Provider] - 1-2 days (please call the office for an appointment) Patient Instructions/Handouts: Chest Pain (DC) Discharge Disposition: HOME SELF-CARE
== END 2024-03-09 18:11 | disposition home or self-care (01) ==
LOC: EC 13:02 → 6NMEDSUR 14:57
PROVIDERS: ADMIT Internal Medicine; ATTEND Internal Medicine
DX: R07.89 Other chest pain (principal); E11.9 Type 2 diabetes mellitus without complications; J45.909 Unspecified asthma, uncomplicated; I10 Essential (primary) hypertension; K21.9 Gastro-esophageal reflux disease without esophagitis; E78.5 Hyperlipidemia, unspecified; E66.9 Obesity, unspecified; F32.A Depression, unspecified; F20.9 Schizophrenia, unspecified; F40.240 Claustrophobia; M81.0 Age-related osteoporosis without current pathological fracture; F43.10 Post-traumatic stress disorder, unspecified; Z91.81 History of falling; Z79.899 Other long term (current) drug therapy; Z79.51 Long term (current) use of inhaled steroids; Z79.84 Long term (current) use of oral hypoglycemic drugs; Z82.49 Family history of ischemic heart disease and other diseases of the circulatory system; Z80.0 Family history of malignant neoplasm of digestive organs
CPT/HCPCS: 96376; 96361 ×2; 96372 ×3; 96375 ×2; 96374; 99285; 36415; 94640; 93005; 93306; 80053 ×2; 83690; 83735; 84484; 85025 ×2; 85610; 85730; 81003; 87636; 71046; 76705; G0378 ×2; J1644 ×2; J2405; J2470 ×2

== ENCOUNTER → 2024-03-14 | Outpatient (CLI) | payer OTHER ==
--- NOTE | 2024-03-15 15:38 | BD ---
EXAMINATION TYPE: Axial Bone Density DATE OF EXAM: 03/14/2024 CLINICAL HISTORY: 58 years old Female. ICD-10 CODE: Z78.0 [place] , Additional History: Height: 60 in Weight: 159 lbs FRAX RISK QUESTIONS: History of Fracture in Adulthood: rt foot fx age 48 HISTORY OF: MEDICATIONS: Osteoporosis Medications: not now Which medication: Fosamax How Lon years EXAM MEASUREMENTS: Bone mineral densitometry was performed using the SepSensor System. Bone mineral density as measured about the Lumbar spine is: ----- L1-L4(G/cm2): 1.084 T Score Values are as follows: ----- L1: -1.6 ----- L2: -0.9 ----- L3: 0.0 ----- L4: -0.9 ----- L1-L4: -0.8 Z Score Values are as follows: ----- L1: -0.9 ----- L2: -0.2 ----- L3: 0.6 ----- L4: -0.3 ----- L1-L4: -0.1 Bone mineral density has: Increased 0.4% since study of: 11/17/2020 Bone mineral density about the R hip (g/cm2): 0.901 Bone mineral density about the L hip (g/cm2): 0.858 T Score values are as follows: -----R Neck: -2.0 -----L Neck: -1.6 -----R Total: -0.8 -----L Total: -1.2 Z Score values are as follows: -----R Neck: -1.1 -----L Neck: -0.6 -----R Total: -0.3 -----L Total: -0.7 Bone mineral density has: Increased 3.7% since study of: 11/17/2020 FRAX%s: The graph provided illustrates a 13.9% chance for a major osteoporotic fx and a 1.8% chance f or the hips probability for fx in 10 years time. IMPRESSION: Osteopenia (T Score between -2.5 and -1). There is slightly increased risk of fracture and the patient may be considered for treatment. Re-Screen 2-5 years. NOTE: T-SCORE=SD OF THE YOUNG ADULT MEAN. [facility], , 03/15/2024 3:36 PM
--- NOTE | 2024-03-16 17:04 | MM ---
Reason for Exam: Screening (asymptomatic). Last mammogram was performed 1 year(s) and 1 month(s) ago. Patient History: Menarche at age 20. First Full-Term at age 35. Late child-bearing (after 30). Postmenopausal. 10/19/2011, Benign Cyst Aspiration on the left side. Maternal cousin had breast cancer, age 30. Maternal aunt had breast cancer. Risk Values: Trupti 5 year model risk: 1.6%. NCI Lifetime model risk: 10.0%. Prior Study Comparison: 09/25/2019 Bilateral Screening Mammogram, [facility]. 05/18/2022 Bilateral MG 3D screening mammo w/cad, [facility]. 02/21/2023 Bilateral MG 3D diag mammo w/cad [facility], [facility]. Tissue Density: The breasts are heterogeneously dense, which may obscure small masses. Findings: Analyzed By CAD. Chronic nodularity on the left. There is no suspicious group of microcalcifications or new suspicious mass in either breast. Overall Assessment: Benign, BI-RAD 2 Management: Screening Mammogram of both breasts in 1 year. . Patient should continue monthly self-breast exams. A clinical breast exam by your physician is recommended on an annual basis. This exam should not preclude additional follow-up of suspicious palpable abnormalities. Note on Trupti scores and lifetime risk: 1. A Trupti score greater than 3% is considered moderate risk. If this is the case, consider specialist referral to assess eligibility for a risk reducing agent. 2. If overall lifetime risk for the development of breast cancer is 20% or higher, the patient may qualify for future screening with alternating mammogram and breast MRI. [facility], , 03/16/2024 5:00 PM. Electronically signed and approved by: Gio Reyes M.D. Radiologist
== END | disposition home or self-care (01) ==
LOC: RADMAMWWP 13:32
PROVIDERS: ATTEND Family Medicine
DX: Z12.31 Encounter for screening mammogram for malignant neoplasm of breast (principal); Z78.0 Asymptomatic menopausal state; Z80.3 Family history of malignant neoplasm of breast; R92.333 Mammographic heterogeneous density, bilateral breasts; M85.89 Other specified disorders of bone density and structure, multiple sites
CPT/HCPCS: 77063; 77067; 77080

== ENCOUNTER 2024-04-08 16:01 | Emergency (ER) | payer OTHER ==
--- NOTE | 2024-04-08 16:54 | ED ---
URI HPI - General Source: patient, RN notes reviewed Mode of arrival: ambulatory Limitations: no limitations - History of Present Illness MD Complaint: nasal congestion Onset/Timin -: days(s) <Vaibhav Pollard - Last Filed: 04/08/24 16:53> <Анна Washburn - Last Filed: 04/19/24 20:30> - General Stated Complaint: Covid+ Time Seen by Provider: 04/08/24 16:14 - History of Present Illness Initial Comments: Quick note: This is a 58-year-old female with history of DM and pneumonia presenting with sick symptoms x 4 days. Patient states she recently tested positive for COVID. Endorses chills, fatigue, congestion, sweating and loss of taste/smell. Denies fever, chest pain, dyspnea, abdominal pain, N/V/D. (Vaibhav Pollard) 58-year-old female presenting with URI-like symptoms. Patient has had cough, congestion, fatigue, chills, and loss of taste and smell. Her son is also having similar symptoms. No chest pain, difficulty breathing, abdominal pain, nausea, vomiting, diarrhea, fever, lower extremity swelling. No dizziness or weakness. Patient tested positive for COVID at home, she wanted a retest here. (Анна Washburn) - Related Data Home Medications Medication Instructions Recorded Confirmed Albuterol Sulfate [Ventolin HFA] 1 puff INHALATION RT-Q4H PRN 02/20/20 03/08/24 ALPRAZolam [Xanax] 1 mg PO TID PRN 03/08/24 03/08/24 Amitriptyline HCl [Elavil] 100 mg PO HS 03/08/24 03/08/24 Benztropine Mesylate [Cogentin] 1 mg PO BID PRN 03/08/24 03/08/24 Budesonide/Formoterol Fumarate 2 puff INHALATION RT-BID 03/08/24 03/08/24 [Symbicort 160-4.5 Mcg Inhaler] FLUoxetine HCL [Sarafem] 60 mg PO DAILY 03/08/24 03/08/24 OLANZapine [ZyPREXA] 2.5 mg PO HS 03/08/24 03/08/24 lisinopriL [Zestril] 20 mg PO DAILY 03/08/24 03/08/24 metFORMIN HCL [Glucophage] 500 mg PO BID-W/MEALS 03/08/24 03/08/24 Previous Rx's Medication Instructions Recorded Nirmatrelvir/Ritonavir [Paxlovid 1 each PO DIRECTED #1 each 04/08/24 300-100 mg Dose Pack] Allergies Allergy/AdvReac Type Severity Reaction Status Date / Time magnesium sulfate Allergy Severe paralysis Verified 04/08/24 16:56 iodine Allergy Rash/Hives Verified 04/08/24 16:56 shellfish derived [Shrimp] Allergy Rash/Hives Verified 04/08/24 16:56 Sulfates AdvReac Severe paralysis Uncoded 04/08/24 16:56 Review of Systems ROS Other: All systems not noted in ROS Statement are negative. <Vaibhav Pollard - Last Filed: 04/08/24 16:53> ROS Other: All systems not noted in ROS Statement are negative. <Анна Washburn - Last Filed: 04/19/24 20:30> ROS Statement: Those systems with pertinent positive or pertinent negative responses have been documented in the HPI. Past Medical History Past Medical History: Asthma, Diabetes Mellitus, GERD/Reflux, Hyperlipidemia, Hypertension, Pneumonia Additional Past Medical History / Comment(s): ruptured ear drum(lt), palpatations, bronchits, migraines, hx rib fx, osteoporosis. Covid 02/03/20 approximately, hx ulcer, "pre diabetic"-watches diet, hx anemia History of Any Multi-Drug Resistant Organisms: None Reported Past Surgical History: Appendectomy, Breast Surgery Additional Past Surgical History / Comment(s): Fluid drained from left Breast Past Anesthesia/Blood Transfusion Reactions: Motion Sickness Additional Past Anesthesia/Blood Transfusion Reaction / Comment(s): claustrophobia, Past Psychological History: Anxiety, Depression, PTSD, Schizophrenia Additional Psychological History / Comment(s): DISSASSOCIATIVE DISORDER, schizophrenic, ptsd, claustrophobia Smoking Status: Never smoker Past Alcohol Use History: None Reported Past Drug Use History: None Reported Additional Drug Use History / Comment(s): . - Past Family History Mother Family Medical History: Cancer Additional Family Medical History / Comment(s): colon cancer, Father Family Medical History: Myocardial Infarction ([place]) Additional Family Medical History / Comment(s): ptsd ([place] war), at age 42-mi <Vaibhav Pollard - Last Filed: 04/08/24 16:53> General Exam <Vaibhav Pollard - Last Filed: 04/08/24 16:53> Limitations: no limitations General appearance: alert, in no apparent distress Head exam: Present: atraumatic, normocephalic, normal inspection Eye exam: Present: normal appearance, EOMI ENT exam: Present: normal exam, normal oropharynx, mucous membranes moist Neck exam: Present: normal inspection. Absent: meningismus Respiratory exam: Present: normal lung sounds bilaterally. Absent: respiratory distress, wheezes, rales, rhonchi, stridor Cardiovascular Exam: Present: normal rhythm, tachycardia, normal heart sounds. Absent: systolic murmur, diastolic murmur, rubs, gallop, clicks Neurological exam: Present: alert, oriented X3 Psychiatric exam: Present: normal affect, normal mood Skin exam: Present: warm, dry <Анна Washburn - Last Filed: 04/19/24 20:30> - General Exam Comments Initial Comments: Visual Physical Exam Vital signs reviewed General: Well-appearing, nontoxic, no acute distress. Head: Normocephalic, atraumatic Eyes: PERRLA, EOMI ENT: Airway patent Chest: Nonlabored breathing Skin: No visual rash, normal skin tone Neuro: Alert and oriented 3 Musculoskeletal: No gross abnormalities (Vaibhav Pollard) Course Vital Signs 04/08/24 04/08/24 16:54 19:12 Temperature 98.9 F 98.6 F Pulse Rate 124 H 118 H Respiratory 22 18 Rate Blood Pressure 105/77 120/88 O2 Sat by Pulse 96 96 Oximetry Medical Decision Making <Vaibhav Pollard - Last Filed: 04/08/24 16:53> <Анна Washburn - Last Filed: 04/19/24 20:30> - Medical Decision Making I completed the quick note portion of this chart signed ANGELY Albarran (Vaibhav Pollard) Was pt. sent in by a medical professional or institution (KEVIN Torres, CORONARY CLINICAL SPECIALIST, urgent care, hospital, or group home...) When possible be specific @ -No Did you speak to anyone other than the patient for history (EMS, parent, family, police, friend...)? What history was obtained from this source @ -No Did you review nursing and triage notes (agree or disagree)? Why? @ -I reviewed and agree with nursing and triage notes Were old charts reviewed (outside hosp., previous admission, EMS record, old EKG, old radiological studies, urgent care reports/EKG's, group home records)? Report findings @ -No old charts were reviewed Differential Diagnosis (chest pain, altered mental status, abdominal pain women, abdominal pain men, vaginal bleeding, weakness, fever, dyspnea, syncope, headache, dizziness, GI bleed, back pain, seizure, CVA, palpatations, mental health, musculoskeletal)? @ -Differential includes COVID, influenza, RSV, other viral process, this is not an all-inclusive list EKG interpreted by me (3pts min.). @ -As above X-rays interpreted by me (1pt min.). @ -Chest x-ray shows no acute process CT interpreted by me (1pt min.). @ -None done U/S interpreted by me (1pt. min.). @ -None done What testing was considered but not performed or refused? (CT, X-rays, U/S, labs)? Why? @ -None What meds were considered but not given or refused? Why? @ -None Did you discuss the management of the patient with other professionals (professionals i.e. , PA, CORONARY CLINICAL SPECIALIST, lab, RT, psych nurse, child welfare social worker, snow technician, t eacher, quality officer, caseworker intake)? Give summary @ -No Was smoking cessation discussed for >3mins.? @ -No Was critical care preformed (if so, how long)? @ -No Were there social determinants of health that impacted care today? How? (Homelessness, low income, unemployed, alcoholism, drug addiction, transportation, low edu. Level, literacy, decrease access to med. care, skilled nursing, rehab)? @ -No Was there de-escalation of care discussed even if they declined (Discuss DNR or withdrawal of care, Hospice)? DNR status @ -No What co-morbidities impacted this encounter? (DM, HTN, Smoking, COPD, CAD, Cancer, CVA, ARF, Chemo, Hep., AIDS, mental health diagnosis, sleep apnea, morbid obesity)? @ -None Was patient admitted / discharged? Hospital course, mention meds given and route, prescriptions, significant lab abnormalities, going to OR and other pertinent info. @ -58-year-old female presenting with URI-like symptoms. Her son also has similar symptoms. Tested positive for COVID at home. Workup is initiated by triage. Patient is positive for COVID. Chest x-ray shows no acute process. Patient is later evaluated by myself. Patient is tachycardic, she reports that she is extremely anxious being at the hospital and at baseline she has tachycardia. Looking at previous visits, it does appear that she has history of tachycardia. She feels fine and is very eager to be discharged home. Provided with return parameters. Patient request treatment with Paxlovid, prescription was sent to the pharmacy. Follow-up with PCP. Report back to ER with any new or worsening symptoms. Discussed return parameters and answered all questions. Patient conveyed verbal understanding and agreed to the plan. My attending is Dr. Carrington Undiagnosed new problem with uncertain prognosis? @ -No Drug Therapy requiring intensive monitoring for toxicity (Heparin, Nitro, Insulin, Cardizem)? @ -No Were any procedures done? @ -No Diagnosis/symptom? @ -COVID-19 Acute, or Chronic, or Acute on Chronic? @ -Acute Uncomplicated (without systemic symptoms) or Complicated (systemic symptoms)? @ -Uncomplicated Side effects of treatment? @ -No Exacerbation, Progression, or Severe Exacerbation? @ -No Poses a threat to life or bodily function? How? (Chest pain, [place], [place], pneumonia, PE, COPD, DKA, ARF, appy, cholecystitis, CVA, Diverticulitis, Homicidal, Suicidal, threat to staff... and all critical care pts) @ -Low likelihood (Анна Washburn) - Lab Data Lab Results 04/08/24 Range/Units 17:39 Influenza Type A (PCR) Not Detected (Not Detectd) Influenza Type B (PCR) Not Detected (Not Detectd) RSV (PCR) Not Detected (Not Detectd) SARS-CoV-2 (PCR) Detected A (Not Detectd) Disposition <Vaibhav Pollard - Last Filed: 04/08/24 16:53> Is patient prescribed a controlled substance at d/c from ED?: No Time of Disposition: 18:51 <Анна Washburn - Last Filed: 04/19/24 20:30> Clinical Impression: COVID-19 Disposition: HOME SELF-CARE Condition: Good Instructions (If sedation given, give patient instructions): COVID-19 (Coronavirus Disease 2019) (ED) Additional Instructions: Follow-up with PCP. Report back to ER with any new or worsening symptoms. Prescriptions: Nirmatrelvir/Ritonavir [Paxlovid 300-100 mg Dose Pack] 1 each PO DIRECTED #1 each Referrals: Trini Sadler MD [Primary Care Provider] - 1-2 days
--- NOTE | 2024-04-08 17:46 | XR ---
EXAMINATION TYPE: XR chest 2V DATE OF EXAM: 04/08/2024 5:29 PM COMPARISON: Chest radiographs from 03/08/2024 CLINICAL INDICATION: Female, 58 years old with history of Sick symptoms; TECHNIQUE: XR chest 2V Frontal and lateral views of the chest. FINDINGS: Lungs/Pleura: There is no evidence of pleural effusion, focal consolidation, or pneumothorax. Pulmonary vascularity: Unremarkable. Heart/mediastinum: Cardiomediastinal silhouette is unremarkable. Musculoskeletal: No acute osseous pathology. IMPRESSION: No acute cardiopulmonary disease/process. [facility], , 04/08/2024 5:43 PM
[2024-04-08 19:12] VITALS: BP 120/88; PULSE 118; RESP 18; TEMP 98.6
== END 2024-04-08 19:17 | disposition home or self-care (01) ==
LOC: EC 16:01
DX: U07.1 COVID-19 (principal); Z88.8 Allergy status to other drugs, medicaments and biological substances; Z91.041 Radiographic dye allergy status; Z91.013 Allergy to seafood
CPT/HCPCS: 71046; 87636; 99283

== ENCOUNTER 2024-06-08 12:37 | Observation (INO) | payer OTHER ==
--- NOTE | 2024-06-08 12:55 | ED ---
General Adult HPI - General Chief complaint: Chest Pain Stated complaint: high blood pressure Time Seen by Provider: 06/08/24 12:44 Source: patient, RN notes reviewed, old records reviewed Mode of arrival: ambulatory Limitations: no limitations - History of Present Illness Initial comments: 58-year-old female presenting for evaluation of elevated blood pressure central chest pressure patient had been monitoring her blood pressure throughout the day today and had several elevated readings. She contacted her primary care provider who instructed her to present to the emergency department. Patient states the chest pressure does not radiate. No diaphoresis, no vomiting, no radiation to her symptoms. No prior history of CAD. Patient takes lisinopril which she took this morning. She also has history of baseline elevated heart rate which she states is normal for her. No lower extremity pain or swelling. - Related Data Home Medications Medication Instructions Recorded Confirmed Albuterol Sulfate [Ventolin HFA] 1 puff INHALATION RT-Q4H PRN 02/20/20 06/08/24 ALPRAZolam [Xanax] 1 mg PO TID PRN 03/08/24 06/08/24 Benztropine Mesylate [Cogentin] 1 mg PO BID PRN 03/08/24 06/08/24 FLUoxetine HCL [Sarafem] 20 mg PO TID 03/08/24 06/08/24 lisinopriL [Zestril] 20 mg PO DAILY 03/08/24 06/08/24 Fluticasone/Umeclidin/Vilanter 1 puff INHALATION RT-DAILY 06/08/24 06/08/24 [Trelegy Ellipta 200-62.5-25] OLANZapine [ZyPREXA] 5 mg PO HS 06/08/24 06/08/24 Rosuvastatin Calcium [Crestor] 5 mg PO DAILY 06/08/24 06/08/24 metFORMIN HCL [Glucophage] 500 mg PO BID 06/08/24 06/08/24 Allergies Allergy/AdvReac Type Severity Reaction Status Date / Time magnesium sulfate Allergy Severe paralysis Verified 06/08/24 14:15 iodine Allergy Rash/Hives Verified 06/08/24 14:15 shellfish derived [Shrimp] Allergy Rash/Hives Verified 06/08/24 14:15 Sulfates AdvReac Severe paralysis Uncoded 06/08/24 14:15 Review of Systems ROS Statement: Those systems with pertinent positive or pertinent negative responses have been documented in the HPI. ROS Other: All systems not noted in ROS Statement are negative. Past Medical History Past Medical History: Asthma, Diabetes Mellitus, GERD/Reflux, Hyperlipidemia, Hypertension, Pneumonia Additional Past Medical History / Comment(s): ruptured ear drum(lt), palpatations, bronchits, migraines, hx rib fx, osteoporosis. Covid 02/03/20 approximately, hx ulcer, "pre diabetic"-watches diet, hx anemia History of Any Multi-Drug Resistant Organisms: None Reported Past Surgical History: Appendectomy, Breast Surgery Additional Past Surgical History / Comment(s): Fluid drained from left Breast Past Anesthesia/Blood Transfusion Reactions: Motion Sickness Additional Past Anesthesia/Blood Transfusion Reaction / Comment(s): claustrophobia, Past Psychological History: Anxiety, Depression, PTSD, Schizophrenia Smoking Status: Never smoker Past Alcohol Use History: None Reported Past Drug Use History: None Reported - Past Family History Mother Family Medical History: Cancer Additional Family Medical History / Comment(s): colon cancer, Father Family Medical History: Myocardial Infarction ([place]) Additional Family Medical History / Comment(s): ptsd ([place] war), at age 42-mi General Exam Limitations: no limitations General appearance: alert, in no apparent distress Head exam: Present: atraumatic, normocephalic Eye exam: Present: normal appearance, PERRL ENT exam: Present: normal exam Neck exam: Present: normal inspection. Absent: tenderness, meningismus Respiratory exam: Present: normal lung sounds bilaterally. Absent: respiratory distress, wheezes Cardiovascular Exam: Present: normal rhythm, tachycardia GI/Abdominal exam: Present: soft. Absent: distended, tenderness, guarding Extremities exam: Present: normal inspection, normal capillary refill. Absent: calf tenderness Neurological exam: Present: alert, oriented X3, CN II-XII intact. Absent: motor sensory deficit Psychiatric exam: Present: normal affect, normal mood Skin exam: Present: warm, dry, intact. Absent: cyanosis, diaphoretic Course Vital Signs 06/08/24 06/08/24 06/08/24 12:38 13:06 14:00 Temperature 97.8 F Pulse Rate 123 H 73 Respiratory 20 18 Rate Blood Pressure 129/59 137/87 123/78 O2 Sat by Pulse 95 98 Oximetry 06/08/24 15:00 Temperature Pulse Rate Respiratory Rate Blood Pressure 115/78 O2 Sat by Pulse Oximetry Medical Decision Making - Medical Decision Making Was pt. sent in by a medical professional or institution (KEVIN Torres, SCHOOL PLANT CONSULTANT, urgent care, hospital, or care home...) When possible be specific @ -No Did you speak to anyone other than the patient for history (EMS, parent, family, police, friend...)? What history was obtained from this source @ -No Did you review nursing and triage notes (agree or disagree)? Why? @ -I reviewed and agree with nursing and triage notes Were old charts reviewed (outside hosp., previous admission, EMS record, old EKG, old radiological studies, urgent care reports/EKG's, care home records)? Report findings @ -No old charts were reviewed Differential Chest Pain: Stable Angina, Unstable Angina, STEMI, NSTEMI Aortic Dissection, Pneumothorax, Musculoskeletal, Esophageal Spasm GERD, Cholecystitis, Pancreatitis, Zoster, this is not meant to be an all-inclusive list. EKG interpreted by me (3pts min.). @ -Sinus tachycardia rate of 111 WI interval 131, QRS duration 78, QTc [address] segment elevation, T wave inversion in lead III X-rays interpreted by me (1pt min.). @ -Chest x-ray negative for acute cardiopulmonary findings CT interpreted by me (1pt min.). @CT angiography is negative for pulmonary embolism U/S interpreted by me (1pt. min.). @ -None done What testing was considered but not performed or refused? (CT, X-rays, U/S, labs)? Why? @ -None What meds were considered but not given or refused? Why? @ -None Did you discuss the management of the patient with other professionals (professionals i.e. KEVIN Torres, SCHOOL PLANT CONSULTANT, lab, RT, psych nurse, social work case manager, director center, teacher, correctional officer sergeant, case management associate)? Give summary @ -Yes Dr. James Was smoking cessation discussed for >3mins.? @ -No Was critical care preformed (if so, how long)? @ -No Were there social determinants of health that impacted care today? How? (Homelessness, low income, unemployed, alcoholism, drug addiction, tra nsportation, low edu. Level, literacy, decrease access to med. care, senior living, rehab)? @ -No Was there de-escalation of care discussed even if they declined (Discuss DNR or withdrawal of care, Hospice)? DNR status @ -No What co-morbidities impacted this encounter? (DM, HTN, Smoking, COPD, CAD, Cancer, CVA, ARF, Chemo, Hep., AIDS, mental health diagnosis, sleep apnea, morbid obesity)? @Hypertension Was patient admitted / discharged? Hospital course, mention meds given and route, prescriptions, significant lab abnormalities, going to OR and other pertinent info. @Patient is 58 years old with chest pain and elevated blood pressure. Patient is in sinus rhythm without ST segment elevation T wave inversion in lead III. There is concern for pulmonary embolism D-dimer is positive but CT angiography is negative. Troponin is negative. Patient has persistent chest pressure. She will be admitted for serial cardiac enzymes, telemetry, cardiology consultation. Undiagnosed new problem with uncertain prognosis? @ -No Drug Therapy requiring intensive monitoring for toxicity (Heparin, Nitro, Insul in, Cardizem)? @ -No Were any procedures done? @ -No Diagnosis/symptom? @Chest pain rule out Acute, or Chronic, or Acute on Chronic? @ -Acute Uncomplicated (without systemic symptoms) or Complicated (systemic symptoms)? @ -Default Side effects of treatment? @ -No Exacerbation, Progression, or Severe Exacerbation? @ -No Poses a threat to life or bodily function? How? (Chest pain, [place], [place], pneumonia, PE, COPD, DKA, ARF, appy, cholecystitis, CVA, Diverticulitis, Homicidal, Suicidal, threat to staff... and all critical care pts) @ -Yes, ACS - Lab Data Result diagrams: 06/08/24 13:12 06/08/24 13:12 Lab Results 06/08/24 06/08/24 06/08/24 Range/Units 13:12 13:12 13:12 WBC 11.1 H (3.8-10.6) k/uL RBC 4.54 (3.80-5.40) m/uL Hgb 11.8 (11.4-16.0) gm/dL Hct 38.7 (34.0-46.0) % MCV 85.2 (80.0-100.0) fL MCH 26.1 (25.0-35.0) pg MCHC 30.6 L (31.0-37.0) g/dL RDW 14.4 (11.5-15.5) % Plt Count 412 (150-450) k/uL MPV 6.8 Neutrophils % 73 % Lymphocytes % 17 % Monocytes % 4 % Eosinophils % 4 % Basophils % 0 % Neutrophils # 8.1 H (1.3-7.7) k/uL Lymphocytes # 1.9 (1.0-4.8) k/uL Monocytes # 0.5 (0-1.0) k/uL Eosinophils # 0.4 (0-0.7) k/uL Basophils # 0.0 (0-0.2) k/uL PT 10.6 (10.0-12.5) sec INR 0.9 (<1.2) APTT 22.4 (22.0-30.0) sec D-Dimer 1.86 H (<0.60) mg/L FEU Sodium 137 (137-145) mmol/L Potassium 4.3 (3.5-5.1) mmol/L Chloride 97 L (98-107) mmol/L Carbon Dioxide 25 (22-30) mmol/L Anion Gap 15 mmol/L BUN 17 (7-17) mg/dL Creatinine 0.68 (0.52-1.04) mg/dL Est GFR (CKD-EPI)AfAm >90 (>60 ml/min/1.73 sqM) Est GFR (CKD-EPI)NonAf >90 (>60 ml/min/1.73 sqM) Glucose 111 H (74-99) mg/dL Calcium 9.3 (8.4-10.2) mg/dL Magnesium 2.0 (1.6-2.3) mg/dL Total Bilirubin 0.6 (0.2-1.3) mg/dL AST 24 (14-36) U/L ALT 21 (4-34) U/L Alkaline Phosphatase 76 (38-126) U/L Troponin I (0.000-0.034) ng/mL Total Protein 7.6 (6.3-8.2) g/dL Albumin 4.7 (3.5-5.0) g/dL 06/08/24 Range/Units 13:12 WBC (3.8-10.6) k/uL RBC (3.80-5.40) m/uL Hgb (11.4-16.0) gm/dL Hct (34.0-46.0) % MCV (80.0-100.0) fL MCH (25.0-35.0) pg MCHC (31.0-37.0) g/dL RDW (11.5-15.5) % Plt Count (150-450) k/uL MPV Neutrophils % % Lymphocytes % % Monocytes % % Eosinophils % % Basophils % % Neutrophils # (1.3-7.7) k/uL Lymphocytes # (1.0-4.8) k/uL Monocytes # (0-1.0) k/uL Eosinophils # (0-0.7) k/uL Basophils # (0-0.2) k/uL PT (10.0-12.5) sec INR (<1.2) APTT (22.0-30.0) sec D-Dimer (<0.60) mg/L FEU Sodium (137-145) mmol/L Potassium (3.5-5.1) mmol/L Chloride (98-107) mmol/L Carbon Dioxide (22-30) mmol/L Anion Gap mmol/L BUN (7-17) mg/dL Creatinine (0.52-1.04) mg/dL Est GFR (CKD-EPI)AfAm (>60 ml/min/1.73 sqM) Est GFR (CKD-EPI)NonAf (>60 ml/min/1.73 sqM) Glucose (74-99) mg/dL Calcium (8.4-10.2) mg/dL Magnesium (1.6-2.3) mg/dL Total Bilirubin (0.2-1.3) mg/dL AST (14-36) U/L ALT (4-34) U/L Alkaline Phosphatase (38-126) U/L Troponin I <0.012 (0.000-0.034) ng/mL Total Protein (6.3-8.2) g/dL Albumin (3.5-5.0) g/dL Disposition Clinical Impression: Chest pain Disposition: ADMITTED IP TO THIS HOSP Condition: Stable Is patient prescribed a controlled substance at d/c from ED?: No Referrals: Trini Sadler MD [Primary Care Provider] - 1-2 days Time of Disposition: 16:59
[2024-06-08 13:25] LABS: Basophils % (A) 0 %; Eosinophils # (A) 0.4 k/uL (0-0.7); Eosinophils % (A) 4 %; HCT 38.7 % (34.0-46.0); HGB 11.8 gm/dL (11.4-16.0); Lymphocytes # (A) 1.9 k/uL (1.0-4.8); Lymphocytes % (A) 17 %; MCH 26.1 pg (25.0-35.0); MCHC 30.6 g/dL (31.0-37.0); MCV 85.2 fL (80.0-100.0); Mean Platelet Volume 6.8; Monocytes # (A) 0.5 k/uL (0-1.0); Monocytes % (A) 4 %; Neutrophils # (A) 8.1 k/uL (1.3-7.7); Neutrophils % (A) 73 %; Platelet Count 412 k/uL (150-450); RBC 4.54 m/uL (3.80-5.40); RDW 14.4 % (11.5-15.5); WBC 11.1 k/uL (3.8-10.6)
--- NOTE | 2024-06-08 13:27 | XR ---
EXAMINATION TYPE: XR chest 2V DATE OF EXAM: 06/08/2024 1:23 PM COMPARISON: Chest x-ray April 08, 2024 CLINICAL INDICATION: Female, 58 years old with history of Chest Pain, TECHNIQUE: Frontal and lateral views of the chest are obtained. FINDINGS: There is no focal air space opacity, pleural effusion, or pneumothorax seen. The cardiac silhouette size is within normal limits. Underlying scoliotic curvature is redemonstrated. IMPRESSION: No acute process. [facility], , 06/08/2024 1:25 PM
[2024-06-08 13:35] LABS: ALT 21 U/L (4-34); AST 24 U/L (14-36); African American GFR (CKD) >90 (>60 ml/min/1.73 sqM); Albumin 4.7 g/dL (3.5-5.0); Alkaline Phosphatase 76 U/L (38-126); Anion Gap 15 mmol/L; Blood Urea Nitrogen 17 mg/dL (7-17); Calcium 9.3 mg/dL (8.4-10.2); Carbon Dioxide 25 mmol/L (22-30); Chloride 97 mmol/L (98-107); Glucose 111 mg/dL (74-99); Non-African American GFR(CKD) >90 (>60 ml/min/1.73 sqM); Potassium 4.3 mmol/L (3.5-5.1); Sodium 137 mmol/L (137-145); Total Bilirubin 0.6 mg/dL (0.2-1.3); Total Protein 7.6 g/dL (6.3-8.2)
[2024-06-08 13:40] LABS: INR 0.9 (<1.2); Partial Thromboplastin Time 22.4 sec (22.0-30.0); Prothrombin Time 10.6 sec (10.0-12.5)
[2024-06-08] MEDS: methylPREDNISolone SOD SUCCI 125 MG/2 ML VIAL IV STA (14:19)
[2024-06-08] MEDS: diphenhydrAMINE 50 MG/ML 1 ML VIAL IVP STA (14:23)
[2024-06-08] MEDS: FAMOTIDINE 20 MG/2 ML VIAL IV STA (14:23)
--- NOTE | 2024-06-08 15:43 | CT ---
EXAMINATION TYPE: CT angio chest CT DLP: 279.4 mGycm, Automated exposure control for dose reduction was used. DATE OF EXAM: 06/08/2024 3:35 PM COMPARISON: Chest radiograph 06/08/2024, CTA chest 03/10/2016 CLINICAL INDICATION:Female, 58 years old with history of CP/pos dimer; CP/pos dimer TECHNIQUE/CONTRAST: CTA scan of the thorax is performed with IV Contrast, patient injected with 100 ml mL of Isovue 370, pulmonary embolism protocol. MIP images are created and reviewed. FINDINGS: Pulmonary Artery: There is no evidence for a filling defect within the pulmonary vasculature to sugge st acute pulmonary embolism. The pulmonary artery is of normal size. Lungs/Pleura: No evidence of focal consolidation, pleural effusion or pneumothorax. Linear scarring a telectasis within the left lower lobe. Minimal biapical pleural-parenchymal scarring. Few scattered p ulmonary micronodules measuring 2 mm or less. Airway: Large airways are patent. Heart: Heart is within normal limits for size. Trace anterior pericardial effusion. Vasculature: No evidence of aortic aneurysm. Mediastinum: No evidence of adenopathy. Musculoskeletal: No acute osseous abnormalities. Dextrocurvature of the thoracic spine. Soft Tissues: Unremarkable. Lower neck: No significant findings. Upper Abdomen: No significant findings. IMPRESSION: No evidence of pulmonary embolism or acute thoracic process. [facility], , 06/08/2024 3:41 PM
[2024-06-08] MEDS ORDERED: ACETAMINOPHEN TAB 325 MG TAB PO PRN (16:54)
[2024-06-08] MEDS ORDERED: NALOXONE 0.4 MG/ML 1 ML VIAL IV PRN (16:54)
[2024-06-08] MEDS: SODIUM CHLORIDE 0.9% 1,000 ML IV SCH (17:18)
[2024-06-08] MEDS: ASPIRIN 325 MG TAB PO STA (17:18)
[2024-06-08 20:44] VITALS: RESP 16
[2024-06-08] MEDS ORDERED: ALBUTEROL NEBULIZED 2.5 MG/3 ML INHALATION PRN (20:55)
[2024-06-08] MEDS ORDERED: BENZTROPINE MESYLATE 1 MG TAB PO PRN (20:55)
[2024-06-08] MEDS ORDERED: ALPRAZolam 1 MG TAB PO PRN (20:55)
[2024-06-08] MEDS: FLUoxetine HCL 20 MG CAP PO SCH (22:19)
[2024-06-08] MEDS: OLANZapine 5 MG TAB PO SCH (22:19)
[2024-06-08] MEDS: metFORMIN 500 MG TAB PO SCH (22:19)
[2024-06-09 07:45] VITALS: PULSE 107
[2024-06-09] MEDS: ATORVASTATIN 10 MG TAB PO SCH (07:53)
[2024-06-09] MEDS: lisinopriL 20 MG TAB PO SCH (07:53)
[2024-06-09] MEDS: SYMBICORT 160-4.5 MCG INHALER INHALATION SCH (08:37)
[2024-06-09] MEDS: TIOTROPIUM 2.5 MCG INHALER INHALATION SCH (08:37)
--- NOTE | 2024-06-09 10:31 | P.HPIM ---
History of Present Illness H&P Date: 06/09/24 Maryann Gregory, Is a 58-year-old female who presented to [facility] emergency room with a chief complaint of chest pain, patient describes a pressure sensation in the middle of her chest that lasted about 10 hours, she stated that she had similar pain many years ago and had a stress test that was negative back then. She stated that recently in the last month she had COVID followed by pneumonia. Chest x-ray on presentation was clear. She was evaluated in the emergency room vital examination on presentation revealed a temperature of 97.8 pulse 123 respiration 20 blood pressure 129/59 pulse ox 95% on room air Laboratory data revealed a white blood count of 11.1 hemoglobin 11.8 platelet count 412 D-dimer was elevated at 1.86 glucose 111 BUN 17 creatinine 0.68 Testing in the emergency room revealed chest x-ray done in the emergency room revealed no acute process, CT angiogram of the chest revealed no evidence of pulmonary embolism or acute thoracic process Patient was admitted to medical floor for further evaluation and treatment, cardiology consultation was requested Past Medical History Past Medical History: Asthma, Diabetes Mellitus, GERD/Reflux, Hyperlipidemia, Hypertension, Pneumonia Additional Past Medical History / Comment(s): ruptured ear drum(lt), palpatations, bronchits, migraines, hx rib fx, osteoporosis. Covid 02/03/20 approximately, hx ulcer, "pre diabetic"-watches diet, hx anemia History of Any Multi-Drug Resistant Organisms: None Reported Past Surgical History: Appendectomy, Breast Surgery Additional Past Surgical History / Comment(s): Fluid drained from left Breast Past Anesthesia/Blood Transfusion Reactions: Motion Sickness Additional Past Anesthesia/Blood Transfusion Reaction / Comment(s): claustrophobia, Past Psychological History: Anxiety, Depression, PTSD, Schizophrenia Additional Psychological History / Comment(s): DISSASSOCIATIVE DISORDER, schizophrenic, ptsd, claustrophobia Smoking Status: Never smoker Past Alcohol Use History: None Reported Past Drug Use History: None Reported Additional Drug Use History / Comment(s): . - Past Family History Mother Family Medical History: Cancer Additional Family Medical History / Comment(s): colon cancer, Father Family Medical History: Myocardial Infarction ([place]) Additional Family Medical History / Comment(s): ptsd ([place]), at age 42-mi Medications and Allergies Home Medications Medication Instructions Recorded Confirmed Type Albuterol Sulfate [Ventolin HFA] 1 puff INHALATION RT-Q4H PRN 02/20/20 06/08/24 History ALPRAZolam [Xanax] 1 mg PO TID PRN 03/08/24 06/08/24 History Benztropine Mesylate [Cogentin] 1 mg PO BID PRN 03/08/24 06/08/24 History FLUoxetine HCL [Sarafem] 20 mg PO TID 03/08/24 06/08/24 History lisinopriL [Zestril] 20 mg PO DAILY 03/08/24 06/08/24 History Fluticasone/Umeclidin/Vilanter 1 puff INHALATION RT-DAILY 06/08/24 06/08/24 History [Trelegy Ellipta 200-62.5-25] OLANZapine [ZyPREXA] 5 mg PO HS 06/08/24 06/08/24 History Rosuvastatin Calcium [Crestor] 5 mg PO DAILY 06/08/24 06/08/24 History metFORMIN HCL [Glucophage] 500 mg PO BID 06/08/24 06/08/24 History Allergies Allergy/AdvReac Type Severity Reaction Status Date / Time magnesium sulfate Allergy Severe paralysis Verified 06/08/24 14:15 iodine Allergy Rash/Hives Verified 06/08/24 14:15 shellfish derived [Shrimp] Allergy Rash/Hives Verified 06/08/24 14:15 Sulfates AdvReac Severe paralysis Uncoded 06/08/24 14:15 Physical Exam Vitals: Vital Signs Temp Pulse Pulse Resp BP BP Pulse Ox 06/09/24 07:48 16 06/09/24 07:00 98.3 F 107 H 16 129/56 96 06/09/24 02:00 98.4 F 100 16 112/72 95 06/09/24 01:35 108 H 16 06/08/24 22:19 108 H 16 06/08/24 20:45 97.6 F 74 16 121/74 98 06/08/24 20:44 74 16 121/74 98 06/08/24 20:00 98.4 F 108 H 16 119/65 95 06/08/24 17:21 76 17 124/77 99 06/08/24 15:00 115/78 06/08/24 14:00 73 18 123/78 98 06/08/24 13:06 137/87 06/08/24 12:38 97.8 F 123 H 20 129/59 95 Intake and Output 06/08/24 06/09/24 06/09/24 22:59 06:59 14:59 Other: Voiding Method Toilet Toilet Toilet # Voids 1 1 Weight 70.307 kg In general patient is alert and oriented x 3 in no distress HEENT head normocephalic and atraumatic Neck is supple no JVD no goiter no lymphadenopathy no carotid bruit Chest examination is clear to auscultation no crackles no wheezing Cardiac exam reveals regular heart sounds S1 and S2 no gallops no murmurs Abdomen is soft nontender no organomegaly with normal bowel sounds Extremity exam reveals no edema no cyanosis or clubbing Neurological examination reveals no gross focal deficits Results CBC & Chem 7: 06/08/24 13:12 06/08/24 13:12 Labs: Abnormal Lab Results - Last 24 Hours (Table) 06/08/24 06/08/24 06/08/24 Range/Units 13:12 13:12 13:12 WBC 11.1 H (3.8-10.6) k/uL MCHC 30.6 L (31.0-37.0) g/dL Neutrophils # 8.1 H (1.3-7.7) k/uL D-Dimer 1.86 H (<0.60) mg/L FEU Chloride 97 L (98-107) mmol/L Glucose 111 H (74-99) mg/dL Thrombosis Risk Factor Assmnt - Choose All That Apply Any of the Below Risk Factors Present?: Yes Each Factor Represents 1 point: Age 41-60 years Other Risk Factors: No Other congenital or acquired thrombophilia - If yes, enter type in comment: No Thrombosis Risk Factor Assessment Total Risk Factor Score: 1 Thrombosis Risk Factor Assessment Level: Low Risk Assessment and Plan Plan: Episode of chest pain Tachycardia on presentation Elevated D-dimer on presentation Recent acute COVID-19 infection Recent pneumonia treated with antibiotic as outpatient Underlying history of asthma Underlying history of hypertension Underlying history of hyperlipidemia Underlying history of [id number] diabetes mellitus Underlying history of gastroesophageal reflux disease Underlying history of depression At this time patient was seen and examined Home medications reviewed and reordered Serial EKG and cardiac enzymes ordered Cardiology consultation requested Will follow closely
[2024-06-09 14:36] VITALS: BP 114/74; TEMP 98.1
--- NOTE | 2024-06-09 15:01 | P.CRDCN ---
History of Present Illness Consult date: 06/09/24 Consult reason: chest pain Chief complaint: Elevated blood pressure, chest pressure History of present illness: History of present illness: Patient is a pleasant 58-year-old female with significant past medical history o f hypertension, hyperlipidemia, anxiety, asthma, diabetes type 2 who presented to the emergency department with elevated blood pressure. She states at home her blood pressure was in the 180s/110s. She does not follow with a nnp. She states she was recently started on lisinopril a couple months ago. She was having chest pressure at home similar to when she had pleurisy, the aspirin did help this. She was not given any nitro. She currently denies any chest pain, shortness of breath, dizziness, headaches. Troponins were negative x 3. CTA of the chest was negative for PE and any acute findings. She did have prior echocardiogram 02/2024 which showed EF 55-60%, mild mitral and tr icuspid regurgitation. Blood pressure is better controlled today. She states she does have baseline tachycardia. EKG does show sinus tachycardia 111 bpm. REVIEW OF SYSTEMS: No fever or chills. No cough or expectoration. No diaphoresis. Patient denies headache, dizziness, blurred vision, double vision. Patient denies any stomach discomfort. No nausea, vomiting. No hematochezia. No hematemesis. Denies any black stools or blood in his stools. Denies dysuria or hematuria. No muscle weakness or numbness. No chest pain or pressure. PHYSICAL EXAMINATION: This is a 58-year-old female in no apparent distress at the time of my examination. HEENT: Head is atraumatic, normocephalic. Pupils are equal, round. Sclerae anicteric. Conjunctivae are clear. Mucous membranes of the mouth are moist. Neck is supple. There is no jugular venous distention. No carotid bruit is heard. CHEST EXAMINATION: Lungs are clear to auscultation. No chest wall tenderness is noted on palpation or with deep breathing. HEART EXAMINATION: Heart regular rhythm, tachycardic. S1, S2 heard. No murmurs, gallops or rub. ABDOMEN: Soft, nontender. Bowel sounds are heard. EXTREMITIES: 2+ peripheral pulses with no evidence of peripheral edema and no calf tenderness noted. NEUROLOGIC EXAMINATION: Patient is awake, alert and oriented x3. IMPRESSION AND PLAN: Hypertension Hyperlipidemia Asthma Diabetes type 2 Sinus tachycardia Chest pain, atypical PLAN: ACS ruled out. Blood pressure is better controlled. Continue with current regimen. Okay to discharge home from a cardiac standpoint. Recommend outpatient stress test. Follow-up in clinic 1-2 weeks. I am dictating on behalf of Dr. Aldair Desai's history/physical and assessment/plan. Past Medical History Past Medical History: Asthma, Diabetes Mellitus, GERD/Reflux, Hyperlipidemia, Hypertension, Pneumonia Additional Past Medical History / Comment(s): ruptured ear drum(lt), palpatation s, bronchits, migraines, hx rib fx, osteoporosis. Covid 02/03/20 approximately, hx ulcer, "pre diabetic"-watches diet, hx anemia History of Any Multi-Drug Resistant Organisms: None Reported Past Surgical History: Appendectomy, Breast Surgery Additional Past Surgical History / Comment(s): Fluid drained from left Breast Past Anesthesia/Blood Transfusion Reactions: Motion Sickness Additional Past Anesthesia/Blood Transfusion Reaction / Comment(s): claustrophobia, Past Psychological History: Anxiety, Depression, PTSD, Schizophrenia Additional Psychological History / Comment(s): DISSASSOCIATIVE DISORDER, schizophrenic, ptsd, claustrophobia Smoking Status: Never smoker Past Alcohol Use History: None Reported Past Drug Use History: None Reported Additional Drug Use History / Comment(s): . - Past Family History Mother Family Medical History: Cancer Additional Family Medical History / Comment(s): colon cancer, Father Family Medical History: Myocardial Infarction ([place]) Additional Family Medical History / Comment(s): ptsd ([place]), at age 42-mi Medications and Allergies Home Medications Medication Instructions Recorded Confirmed Type Albuterol Sulfate [Ventolin HFA] 1 puff INHALATION RT-Q4H PRN 02/20/20 06/08/24 History ALPRAZolam [Xanax] 1 mg PO TID PRN 03/08/24 06/08/24 History Benztropine Mesylate [Cogentin] 1 mg PO BID PRN 03/08/24 06/08/24 History FLUoxetine HCL [Sarafem] 20 mg PO TID 03/08/24 06/08/24 History lisinopriL [Zestril] 20 mg PO DAILY 03/08/24 06/08/24 History Fluticasone/Umeclidin/Vilanter 1 puff INHALATION RT-DAILY 06/08/24 06/08/24 History [Trelegy Ellipta 200-62.5-25] OLANZapine [ZyPREXA] 5 mg PO HS 06/08/24 06/08/24 History Rosuvastatin Calcium [Crestor] 5 mg PO DAILY 06/08/24 06/08/24 History metFORMIN HCL [Glucophage] 500 mg PO BID 06/08/24 06/08/24 History Allergies Allergy/AdvReac Type Severity Reaction Status Date / Time magnesium sulfate Allergy Severe paralysis Verified 06/08/24 14:15 iodine Allergy Rash/Hives Verified 06/08/24 14:15 shellfish derived [Shrimp] Allergy Rash/Hives Verified 06/08/24 14:15 Sulfates AdvReac Severe paralysis Uncoded 06/08/24 14:15 Physical Exam Vitals: Vital Signs Temp Pulse Pulse Resp BP BP Pulse Ox 06/09/24 07:48 16 06/09/24 07:00 98.3 F 107 H 16 129/56 96 06/09/24 02:00 98.4 F 100 16 112/72 95 06/09/24 01:35 108 H 16 06/08/24 22:19 108 H 16 06/08/24 20:45 97.6 F 74 16 121/74 98 06/08/24 20:44 74 16 121/74 98 06/08/24 20:00 98.4 F 108 H 16 119/65 95 06/08/24 17:21 76 17 124/77 99 06/08/24 15:00 115/78 06/08/24 14:00 73 18 123/78 98 06/08/24 13:06 137/87 06/08/24 12:38 97.8 F 123 H 20 129/59 95 Intake and Output 06/08/24 06/09/24 06/09/24 22:59 06:59 14:59 Other: Voiding Method Toilet Toilet Toilet # Voids 1 1 Weight 70.307 kg Results 06/08/24 13:12 06/08/24 13:12 Cardiac Enzymes 06/08/24 06/08/24 06/08/24 Range/Units 13:12 13:12 17:22 AST 24 (14-36) U/L Troponin I <0.012 <0.012 (0.000-0.034) ng/mL 06/08/24 Range/Units 20:36 AST (14-36) U/L Troponin I <0.012 (0.000-0.034) ng/mL Coagulation 06/08/24 Range/Units 13:12 PT 10.6 (10.0-12.5) sec APTT 22.4 (22.0-30.0) sec CBC 06/08/24 Range/Units 13:12 WBC 11.1 H (3.8-10.6) k/uL RBC 4.54 (3.80-5.40) m/uL Hgb 11.8 (11.4-16.0) gm/dL Hct 38.7 (34.0-46.0) % Plt Count 412 (150-450) k/uL Comprehensive Metabolic Panel 06/08/24 Range/Units 13:12 Sodium 137 (137-145) mmol/L Potassium 4.3 (3.5-5.1) mmol/L Chloride 97 L (98-107) mmol/L Carbon Dioxide 25 (22-30) mmol/L BUN 17 (7-17) mg/dL Creatinine 0.68 (0.52-1.04) mg/dL Glucose 111 H (74-99) mg/dL Calcium 9.3 (8.4-10.2) mg/dL AST 24 (14-36) U/L ALT 21 (4-34) U/L Alkaline Phosphatase 76 (38-126) U/L Total Protein 7.6 (6.3-8.2) g/dL Albumin 4.7 (3.5-5.0) g/dL Current Medications Generic Name Dose Route Start Last Admin Trade Name Freq PRN Reason Stop Dose Admin Acetaminophen 650 mg 06/08/24 16:54 Acetaminophen Tab 325 Mg Tab PO Q6HR PRN Mild Pain or Fever > 100.5 Albuterol Sulfate 2.5 mg 06/08/24 20:55 Albuterol Nebulized 2.5 Mg/3 Ml INHALATION RT-Q4H PRN Shortness Of Breath Alprazolam 1 mg 06/08/24 20:55 Alprazolam 1 Mg Tab PO TID PRN Anxiety Atorvastatin Calcium 10 mg 06/09/24 09:00 06/09/24 07:53 Atorvastatin 10 Mg Tab PO 10 mg DAILY [facility] Administration Benztropine Mesylate 1 mg 06/08/24 20:55 Benztropine Mesylate 1 Mg Tab PO BID PRN TREMORS Budesonide/Formoterol Fumarate 2 puff 06/09/24 08:00 06/09/24 08:37 Symbicort 160-4.5 Mcg Inhaler INHALATION Not Given RT-BID [facility] Fluoxetine HCl 20 mg 06/08/24 22:00 06/09/24 07:52 Fluoxetine Hcl 20 Mg Cap PO 20 mg TID [facility] Administration Sodium Chloride 1,000 mls @ 75 mls/hr 06/08/24 16:30 06/09/24 08:21 Saline 0.9% IV Not Given .[id number] [facility] Lisinopril 20 mg 06/09/24 09:00 06/09/24 07:53 Lisinopril 20 Mg Tab PO 20 mg DAILY [facility] Administration Metformin HCl 500 mg 06/08/24 21:00 06/08/24 22:19 Metformin 500 Mg Tab PO 500 mg BID [facility] Administration Naloxone HCl 0.2 mg 06/08/24 16:54 Naloxone 0.4 Mg/Ml 1 Ml Vial IV Q2M PRN Opioid Reversal Olanzapine 5 mg 06/08/24 21:00 06/08/24 22:19 Olanzapine 5 Mg Tab PO 5 mg HS [facility] Administration Tiotropium [place] 2 puff 06/09/24 08:00 06/09/24 08:37 Tiotropium 2.5 Mcg Inhaler INHALATION 2 puff RT-DAILY [facility] Administration Intake and Output 06/08/24 06/09/24 06/09/24 22:59 06:59 14:59 Other: Voiding Method Toilet Toilet Toilet # Voids 1 1 Weight 70.307 kg 06/08/24 13:12 06/08/24 13:12
== END 2024-06-09 15:14 | disposition home or self-care (01) ==
LOC: EC 12:37 → 6NMEDSUR 16:54
PROVIDERS: ADMIT Internal Medicine; ATTEND Internal Medicine
DX: R07.89 Other chest pain (principal); I10 Essential (primary) hypertension; I08.1 Rheumatic disorders of both mitral and tricuspid valves; R00.0 Tachycardia, unspecified; R79.89 Other specified abnormal findings of blood chemistry; J45.909 Unspecified asthma, uncomplicated; E78.5 Hyperlipidemia, unspecified; E11.9 Type 2 diabetes mellitus without complications; K21.9 Gastro-esophageal reflux disease without esophagitis; F32.A Depression, unspecified; F41.9 Anxiety disorder, unspecified; Z79.51 Long term (current) use of inhaled steroids; Z79.84 Long term (current) use of oral hypoglycemic drugs; Z79.899 Other long term (current) drug therapy; Z91.013 Allergy to seafood; Z88.2 Allergy status to sulfonamides; Z88.8 Allergy status to other drugs, medicaments and biological substances; Z91.048 Other nonmedicinal substance allergy status; Z86.16 Personal history of COVID-19; Z87.01 Personal history of pneumonia (recurrent)
CPT/HCPCS: 96361 ×3; 96374; 96375; 99285; 36415; 94640; 93005 ×2; 85379; 80053; 83735; 84484; 85025; 85610; 85730; 71046; 71275; G0378 ×2; J1200; J3490; Q9967; J2919

== ENCOUNTER 2024-10-22 18:09 | Observation (INO) | payer OTHER ==
--- NOTE | 2024-10-22 21:21 | ED ---
Chest Pain HPI - General Source: patient, RN notes reviewed Mode of arrival: ambulatory Limitations: no limitations - History of Present Illness MD Complaint: chest pain Onset/Timin -: minutes(s) <Vaibhav Pollard - Last Filed: 10/22/24 21:23> - General Source: patient, RN notes reviewed, old records reviewed Mode of arrival: ambulatory Limitations: no limitations - History of Present Illness MD Complaint: chest pain -: minutes(s) (30) Onset: during rest, during exertion Pain Location: substernal, left chest Pain Radiation: LUE, jaw/teeth Severity: moderate Severity scale (1-10): 4 Quality: tightness, heaviness Consistency: constant Improves With: nothing Worsens With: nothing Anginal Symptoms: diaphoresis, dyspnea, sense of impending doom Other Symptoms: palpitations Treatments Prior to Arrival: none <Marino Clemente - Last Filed: 10/23/24 01:01> - General Chief Complaint: Chest Pain Stated Complaint: Chest pain Time Seen by Provider: 10/22/24 18:21 - History of Present Illness Initial Comments: Quick note:This is a 58-year-old female with history including DM, hyperlipidemia and hypertension presenting for chest pain occurring 30 minutes prior to ER arrival. Patient states pain radiates to her back and jaw. Denies dizziness, lightheadedness, dyspnea, diaphoresis. (Vaibhav Pollard) This is a 58-year-old male to ER for evaluation of chest pain chest pain to jaw chest pain and back 30 minutes prior to arrival heaviness with high blood pressure high cholesterol diabetes (Marino Clemente) - Related Data Home Medications Medication Instructions Recorded Confirmed Albuterol Sulfate [Ventolin HFA] 1 puff INHALATION RT-Q4H PRN 02/20/20 06/08/24 ALPRAZolam [Xanax] 1 mg PO TID PRN 03/08/24 06/08/24 Benztropine Mesylate [Cogentin] 1 mg PO BID PRN 03/08/24 06/08/24 FLUoxetine HCL [Sarafem] 20 mg PO TID 03/08/24 06/08/24 lisinopriL [Zestril] 20 mg PO DAILY 03/08/24 06/08/24 Fluticasone/Umeclidin/Vilanter 1 puff INHALATION RT-DAILY 06/08/24 06/08/24 [Trelegy Ellipta 200-62.5-25] OLANZapine [ZyPREXA] 5 mg PO HS 06/08/24 06/08/24 Rosuvastatin Calcium [Crestor] 5 mg PO DAILY 06/08/24 06/08/24 metFORMIN HCL [Glucophage] 500 mg PO BID 06/08/24 06/08/24 Allergies Allergy/AdvReac Type Severity Reaction Status Date / Time magnesium sulfate Allergy Severe paralysis Verified 10/22/24 18:15 iodine Allergy Rash/Hives Verified 10/22/24 18:15 shellfish derived [Shrimp] Allergy Rash/Hives Verified 10/22/24 18:15 Sulfates AdvReac Severe paralysis Uncoded 06/08/24 14:15 Review of Systems ROS Other: All systems not noted in ROS Statement are negative. <Vaibhav Pollard - Last Filed: 10/22/24 21:23> ROS Other: All systems not noted in ROS Statement are negative. <Marino Clemente - Last Filed: 10/23/24 01:01> ROS Statement: Those systems with pertinent positive or pertinent negative responses have been documented in the HPI. EKG Findings - EKG Comments: EKG Findings:: EKG sinus 89 VA 149 QRS 76 QTc 386 - EKG Results: EKG: interpreted by ERMD <Marino Clemente - Last Filed: 10/23/24 01:01> Past Medical History Past Medical History: Asthma, Diabetes Mellitus, GERD/Reflux, Hyperlipidemia, Hypertension, Pneumonia Additional Past Medical History / Comment(s): ruptured ear drum(lt), palpatations, bronchits, migraines, hx rib fx, osteoporosis. Covid 02/03/20 approximately, hx ulcer, "pre diabetic"-watches diet, hx anemia History of Any Multi-Drug Resistant Organisms: None Reported Past Surgical History: Appendectomy, Breast Surgery Additional Past Surgical History / Comment(s): Fluid drained from left Breast Past Anesthesia/Blood Transfusion Reactions: Motion Sickness Additional Past Anesthesia/Blood Transfusion Reaction / Comment(s): claustrophobia, Past Psychological History: Anxiety, Depression, PTSD, Schizophrenia Smoking Status: Never smoker Past Alcohol Use History: None Reported Past Drug Use History: None Reported - Past Family History Mother Family Medical History: Cancer Additional Family Medical History / Comment(s): colon cancer, Father Family Medical History: Myocardial Infarction ([place]) Additional Family Medical History / Comment(s): ptsd ([place] war), at age 42-mi <Vaibhav Pollard - Last Filed: 10/22/24 21:23> General Exam Limitations: no limitations <Vaibhav Pollard - Last Filed: 10/22/24 21:23> General appearance: alert, in no apparent distress Head exam: Present: atraumatic, normocephalic, normal inspection Eye exam: Present: normal appearance, PERRL, EOMI. Absent: scleral icterus, conjunctival injection, periorbital swelling ENT exam: Present: normal exam, mucous membranes moist Neck exam: Present: normal inspection. Absent: tenderness, meningismus, lymphadenopathy Respiratory exam: Present: normal lung sounds bilaterally. Absent: respiratory distress, wheezes, rales, rhonchi, stridor Cardiovascular Exam: Present: regular rate, normal rhythm, normal heart sounds. Absent: systolic murmur, diastolic murmur, rubs, gallop, clicks GI/Abdominal exam: Present: soft, normal bowel sounds. Absent: distended, tenderness, guarding, rebound, rigid Extremities exam: Present: normal inspection, full ROM, normal capillary refill. Absent: tenderness, pedal edema, joint swelling, calf tenderness Back exam: Present: normal inspection Neurological exam: Present: alert, oriented X3, CN II-XII intact Psychiatric exam: Present: normal affect, normal mood Skin exam: Present: warm, dry, intact, normal color. Absent: rash <Marino Clemente - Last Filed: 10/23/24 01:01> - General Exam Comments Initial Comments: Visual Physical Exam Vital signs reviewed General: Well-appearing, nontoxic, no acute distress. Head: Normocephalic, atraumatic Eyes: PERRLA, EOMI ENT: Airway patent Chest: Nonlabored breathing Skin: No visual rash, normal skin tone Neuro: Alert and oriented 3 Musculoskeletal: No gross abnormalities (Vaibhav Pollard) Course <Marino Clemente - Last Filed: 10/23/24 01:01> Vital Signs 10/22/24 18:13 Temperature 98.0 F Pulse Rate 101 H Respiratory 18 Rate Blood Pressure 118/60 O2 Sat by Pulse 96 Oximetry - Reevaluation(s) Reevaluation #1: 10/23/24 01:00 Medical records reviewed (Marino Clemente) Reevaluation #2: 10/23/24 01:00 Patient symptoms unchanged still with chest pain (Marino Clemente) Reevaluation #3: 10/23/24 01:00 Patient informed of results and questions answered (Marino Clemente) Reevaluation #4: Was pt. sent in by a medical professional or institution (, KEVIN, COMMUNITY RELATIONS REPRESENTATIVE, urgent care, hospital, or correction...) When possible be specific @ -no Did you speak to anyone other than the patient for history (EMS, parent, family, police, friend...)? What history was obtained from this source @ -no Did you review nursing and triage notes (agree or disagree)? Why? @ -agree Are old charts reviewed (outside hosp., previous admission, EMS record, old EKG, old radiological studies, urgent care reports/EKG's, correction records)? Report findings @ -yes Differential Diagnosis (chest pain, altered mental status, abdominal pain women, abdominal pain men, vaginal bleeding, weakness, fever, dyspnea, syncope, headache, dizziness, GI bleed, back pain, seizure, CVA, palpatations, mental health, musculoskeletal)? @ -prior EKG interpreted by me (3pts min.). @ -yes X-rays interpreted by me (1pt min.). @ -yes negative for acute disease CT interpreted by me (1pt min.). @ -no U/S interpreted by me (1pt. min.). @ -no What testing was considered but not performed or refused? (CT, X-rays, U/S, labs)? Why? @ -none What meds were considered but not given or refused? Why? @ -none Did you discuss the management of the patient with other professionals (professionals i.e. KEVIN Torres, COMMUNITY RELATIONS REPRESENTATIVE, lab, RT, psych nurse, addiction social worker, synthetic gem press operator, teacher, loan review officer, manager case)? Give summary @ -no Was smoking cessation discussed for >3mins.? @ -no Was critical care preformed (if so, how long)? @ -no Were there social determinants of health that impacted care today? How? (Homelessness, low income, unemployed, alcoholism, drug addiction, transportation, low edu. Level, literacy, decrease access to med. care, [facility], rehab)? @ -none Was there de-escalation of care discussed even if they declined (Discuss DNR or withdrawal of care, Hospice)? DNR status @ -no What co-morbidities impacted this encounter? (DM, HTN, Smoking, COPD, CAD, Cancer, CVA, ARF, Chemo, Hep., AIDS, mental health diagnosis, sleep apnea, mo rbid obesity)? @ -none Was patient admitted / discharged? Hospital course, mention meds given and route, prescriptions, significant lab abnormalities, going to OR and other pertinent info. @ - Undiagnosed new problem with uncertain prognosis? @ -no Drug Therapy requiring intensive monitoring for toxicity (Heparin, Nitro, Insulin, Cardizem)? @ -no Were any procedures done? @ -no Diagnosis/symptom? @ - Acute, or Chronic, or Acute on Chronic? @ -Acute Uncomplicated (without systemic symptoms) or Complicated (systemic symptoms)? @ -Complicated Side effects of treatment? @ -no Exacerbation, Progression, or Severe Exacerbation? @ -exacerbation Poses a threat to life or bodily function? How? (Chest pain, [place], [place], pneumonia, PE, COPD, DKA, ARF, appy, cholecystitis, CVA, Diverticulitis, Homicidal, Suicidal, threat to staff... and all critical care pts) @ -yes (Marino Clemente) Reevaluation #5: Differential Chest Pain: Stable Angina, Unstable Angina, STEMI, NSTEMI Aortic Dissection, Pneumothorax, Musculoskeletal, Esophageal Spasm GERD, Cholecystitis, Pancreatitis, Zoster, this is not meant to be an all-inclusive list. (Marino Clemente) - Consultations Consultation #1: Spoke with [facility] who agrees to admit this patient (Marino Clemente) Chest Pain MDM <Vaibhav Pollard - Last Filed: 10/22/24 21:23> <Marino Clemente - Last Filed: 10/23/24 01:01> - MDM I completed the quick note portion of this chart signed ANGELY Albarran (Vaibhav Pollard) 58 female will be admitted for chest pain observation strong cardiac history with typical pain symptoms (Marino Clemente) Disposition <Vaibhav Pollard - Last Filed: 10/22/24 21:23> Is patient prescribed a controlled substance at d/c from ED?: No Time of Disposition: 23:00 <Marino Clemente - Last Filed: 10/23/24 01:01> Clinical Impression: Chest pain Disposition: ADMITTED IP TO THIS HOSP Condition: Fair
[2024-10-22 21:30] LABS: Basophils # (A) 0.06 10*3/uL (0.00-0.10); Basophils % (A) 0.6 %; Eosinophils # (A) 0.16 10*3/uL (0.04-0.35); Eosinophils % (A) 1.5 %; HCT 38.8 % (37.2-46.3); HGB 12.8 g/dL (12.0-15.0); Lymphocytes # (A) 3.59 10*3/uL (0.90-5.00); Lymphocytes % (A) 34.6 %; MCH 28.3 pg (27.0-32.0); MCHC 33.0 g/dL (32.0-37.0); MCV 85.7 fL (80.0-97.0); Monocytes # (A) 0.63 10*3/uL (0.20-1.00); Monocytes % (A) 6.1 %; Neutrophils # (A) 5.87 10*3/uL (1.80-7.70); Neutrophils % (A) 56.6 %; Platelet Count 385 10*3/uL (140-440); RBC 4.53 10*6/uL (4.10-5.20); RDW 13.4 % (11.5-14.5); WBC 10.37 10*3/uL (4.50-10.00)
[2024-10-22 21:42] LABS: INR 0.9 (<1.2); Partial Thromboplastin Time 23.3 sec (22.0-30.0); Prothrombin Time 10.5 sec (10.0-12.5)
[2024-10-22 21:43] LABS: ALT 18 U/L (4-34); AST 24 U/L (14-36); African American GFR (CKD) >90 (>60 ml/min/1.73 sqM); Albumin 5.2 g/dL (3.5-5.0); Alkaline Phosphatase 86 U/L (38-126); Anion Gap 12 mmol/L; Blood Urea Nitrogen 23 mg/dL (7-17); Calcium 10.4 mg/dL (8.4-10.2); Carbon Dioxide 27 mmol/L (22-30); Chloride 99 mmol/L (98-107); Glucose 108 mg/dL (74-99); Magnesium 2.0 mg/dL (1.6-2.3); Non-African American GFR(CKD) >90 (>60 ml/min/1.73 sqM); Potassium 5.3 mmol/L (3.5-5.1); Sodium 138 mmol/L (137-145); Total Protein 7.9 g/dL (6.3-8.2)
--- NOTE | 2024-10-22 21:59 | XR ---
EXAMINATION TYPE: XR chest 2V DATE OF EXAM: 10/22/2024 9:41 PM COMPARISON: Chest radiographs from 05/31/2024. CLINICAL INDICATION: Female, 58 years old with history of Chest Pain; [facility] TECHNIQUE: XR chest 2V Frontal and lateral views of the chest. FINDINGS: Lungs/Pleura: There is no evidence of pleural effusion, focal consolidation, or pneumothorax. Pulmonary vascularity: Unremarkable. Heart/mediastinum: Cardiomediastinal silhouette is unremarkable. Musculoskeletal: No acute osseous pathology. IMPRESSION: No acute cardiopulmonary disease/process. [facility], , 10/22/2024 9:57 PM
[2024-10-22] MEDS ORDERED: MORPHINE SULFATE 4 MG/ML SYRINGE IVP PRN (22:47)
[2024-10-22] MEDS: NITROGLYCERIN OINT 1 INCH/GM PACKET TOPICAL STA (23:01)
[2024-10-22] MEDS: SODIUM CHLORIDE 0.9% 1,000 ML IV ONE (23:02)
[2024-10-22] MEDS: MORPHINE SULFATE 4 MG/ML SYRINGE IVP STA (23:03)
[2024-10-23] MEDS ORDERED: ONDANSETRON 4 MG/2 ML VIAL IVP PRN (00:07)
[2024-10-23] MEDS ORDERED: NALOXONE 0.4 MG/ML 1 ML VIAL IV PRN (00:07)
[2024-10-23] MEDS: SODIUM CHLORIDE 0.9% 1,000 ML IV SCH (01:18)
[2024-10-23] MEDS: ASPIRIN 81 MG PO STA (01:19)
[2024-10-23] MEDS ORDERED: BENZTROPINE MESYLATE 1 MG TAB PO PRN (01:21)
[2024-10-23] MEDS: FLUOXETINE HCL 20 MG PO SCH (01:40)
[2024-10-23] MEDS: PARoxetine 10 MG TAB PO ONE (02:16)
[2024-10-23] MEDS: OLANZapine 5 MG TAB PO ONE (02:16)
[2024-10-23 06:38] VITALS: RESP 18
[2024-10-23 07:30] VITALS: BP 106/57; PULSE 64; TEMP 98
[2024-10-23] MEDS ORDERED: ASPIRIN 325 MG TAB PO SCH (09:00)
[2024-10-23] MEDS: ASPIRIN 81 MG PO SCH (10:24)
--- NOTE | 2024-10-23 10:38 | P.CRDCN ---
History of Present Illness History of present illness: HISTORY OF PRESENT ILLNESS: This is a 58-year-old female with a past medical history significant for hypertension, hyperlipidemia, diabetes, and pleurisy. 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 We have been asked to see the patient in consultation for chest pain. Patient examined at the bedside. Patient states she was making eggs yesterday when she began to have chest pain. She states the pain was in the middle of her her chest and radiated into her back. She denied any radiation into her arms. She reports that she felt lightheaded and felt she was going to pass out. She states the pain is not worse with deep inspiration. She states the pain lasted for a few hours. She denies any chest pain or pressure this morning. She is a non-smoker. She denies any known history of CAD. DIAGNOSTICS: - EKG reveals sinus mechanism with no signs of acute ischemia. - Chest xray negative for acute process. - Laboratory data: Troponin negative x 3 - Current home cardiac medications include lisinopril 20 mg daily, rosuvastatin 5 mg daily. - Most recent echocardiogram obtained in February 2024 revealed normal left ventricular size and systolic function, mild mitral and tricuspid regurgitation - Cardiac catheterization history: Patient denies REVIEW OF SYSTEMS: At the time of my exam: CONSTITUTIONAL: Denies fever or chills. HEENT: Denies blurred vision, vision changes, or eye pain. Denies hemoptysis CARDIOVASCULAR: Denies chest pain. Denies orthopnea. Denies PND. Denies palpitations RESPIRATORY: Denies shortness of breath. GASTROINTESTINAL: Denies abdominal pain. Denies nausea or vomiting. HEMATOLOGIC: Denies bleeding disorders. GENITOURINARY: Denies any blood in urine. SKIN: Denies pruitis. Denies rash. PHYSICAL EXAM: VITAL SIGNS: Reviewed. GENERAL: Well-developed in no acute distress. HEENT: Head is normocephalic. Pupils are equal, round. Sclerae anicteric. Mucous membranes of the mouth are moist. Neck supple. No JVD or thyromegaly LUNGS: Respirations even and unlabored. Lungs essentially clear to auscultation bilaterally. HEART: Regular rate and rhythm. S1 and S2 heard. ABDOMEN: Soft. Nondistended. Nontender. EXTREMITIES: Normal range of motion. No clubbing or cyanosis. Peripheral pulses intact. No lower extremity edema NEUROLOGIC: Awake and alert. Oriented x 3. ASSESSMENT: Chest pain Hypertension Hyperlipidemia Diabetes History of pleurisy PLAN: An acute coronary event has been ruled out Add aspirin 81 mg daily Obtain 2D echo to assess cardiac structure and function Resume home cardiac medications Patient to undergo stress testing today If negative, she may be discharged home from a cardiac standpoint Nurse practitioner note has been reviewed by physician. Signing provider agrees with the documented findings, assessment, and plan of care documented by ADOBE LAYER as a scribe. Past Medical History Past Medical History: Asthma, Diabetes Mellitus, GERD/Reflux, Hyperlipidemia, Hypertension, Pneumonia Additional Past Medical History / Comment(s): ruptured ear drum(lt), palpatations, bronchits, migraines, hx rib fx, osteoporosis. Covid 02/03/20 approximately, hx ulcer, "pre diabetic"-watches diet, hx anemia History of Any Multi-Drug Resistant Organisms: None Reported Past Surgical History: Appendectomy, Breast Surgery Additional Past Surgical History / Comment(s): Fluid drained from left Breast Past Anesthesia/Blood Transfusion Reactions: Motion Sickness Additional Past Anesthesia/Blood Transfusion Reaction / Comment(s): hue trophobia, Past Psychological History: Anxiety, Depression, PTSD, Schizophrenia Smoking Status: Never smoker Past Alcohol Use History: None Reported Past Drug Use History: None Reported - Past Family History Mother Family Medical History: Cancer Additional Family Medical History / Comment(s): colon cancer, Father Family Medical History: Myocardial Infarction ([place]) Additional Family Medical History / Comment(s): ptsd ([place] war), at age 42-mi Medications and Allergies Home Medications Medication Instructions Recorded Confirmed Type ALPRAZolam [Xanax] 1 mg PO TID PRN 03/08/24 10/23/24 History Benztropine Mesylate [Cogentin] 1 mg PO BID PRN 03/08/24 10/23/24 History lisinopriL [Zestril] 20 mg PO DAILY 03/08/24 10/23/24 History Fluticasone/Umeclidin/Vilanter 1 puff INHALATION RT-DAILY 06/08/24 10/23/24 History [Trelegy Ellipta 200-62.5-25] OLANZapine [ZyPREXA] 5 mg PO HS 06/08/24 10/23/24 History Rosuvastatin Calcium [Crestor] 5 mg PO DAILY 06/08/24 10/23/24 History metFORMIN HCL [Glucophage] 500 mg PO BID 06/08/24 10/23/24 History PARoxetine HCL [Paxil] 10 mg PO HS 10/23/24 10/23/24 History Allergies Allergy/AdvReac Type Severity Reaction Status Date / Time iodine Allergy Rash/Hives Verified 10/23/24 08:40 shellfish derived [Shrimp] Allergy Rash/Hives Verified 10/23/24 08:40 magnesium sulfate AdvReac Severe paralysis Verified 10/23/24 08:40 Sulfates AdvReac Severe paralysis Uncoded 10/23/24 08:40 Physical Exam Vitals: Vital Signs Temp Pulse Resp BP Pulse Ox 10/23/24 06:37 67 18 104/51 96 10/23/24 04:21 84 16 98/67 96 10/22/24 22:45 80 18 131/71 98 10/22/24 18:13 98.0 F 101 H 18 118/60 96 Intake and Output 10/22/24 10/22/24 10/23/24 14:59 22:59 06:59 Other: Weight 70.307 kg Results 10/22/24 21:06 10/22/24 21:06 Cardiac Enzymes 10/22/24 10/22/24 10/23/24 Range/Units 21:06 21:06 03:04 AST 24 (14-36) U/L Troponin I <0.012 <0.012 (0.000-0.034) ng/mL Coagulation 10/22/24 Range/Units 21:06 PT 10.5 (10.0-12.5) sec APTT 23.3 (22.0-30.0) sec CBC 10/22/24 Range/Units 21:06 WBC 10.37 H (4.50-10.00) 10*3/uL RBC 4.53 (4.10-5.20) 10*6/uL Hgb 12.8 (12.0-15.0) g/dL Hct 38.8 (37.2-46.3) % Plt Count 385 (140-440) 10*3/uL Comprehensive Metabolic Panel 10/22/24 Range/Units 21:06 Sodium 138 (137-145) mmol/L Potassium 5.3 H (3.5-5.1) mmol/L Chloride 99 (98-107) mmol/L Carbon Dioxide 27 (22-30) mmol/L BUN 23 H (7-17) mg/dL Creatinine 0.74 (0.52-1.04) mg/dL Glucose 108 H (74-99) mg/dL Calcium 10.4 H (8.4-10.2) mg/dL AST 24 (14-36) U/L ALT 18 (4-34) U/L Alkaline Phosphatase 86 (38-126) U/L Total Protein 7.9 (6.3-8.2) g/dL Albumin 5.2 H (3.5-5.0) g/dL Current Medications Generic Name Dose Route Start Last Admin Trade Name Freq PRN Reason Stop Dose Admin Alprazolam 1 mg 10/23/24 01:21 Alprazolam 1 Mg Tab PO TID PRN Anxiety Aspirin 325 mg 10/23/24 09:00 Aspirin 325 Mg Tab PO DAILY SOLOMON Benztropine Mesylate 1 mg 10/23/24 01:21 Benztropine Mesylate 1 Mg Tab PO BID PRN TREMORS Sodium Chloride 1,000 mls @ 130 mls/hr 10/22/24 23:00 10/23/24 06:39 Saline 0.9% IV Not Given .[id number] [facility] Morphine Sulfate 4 mg 10/22/24 22:47 Morphine Sulfate 4 Mg/Ml Syringe IVP Q4HR PRN Pain Naloxone HCl 0.2 mg 10/23/24 00:07 Naloxone 0.4 Mg/Ml 1 Ml Vial IV Q2M PRN Opioid Reversal Olanzapine 5 mg 10/23/24 21:00 Olanzapine 5 Mg Tab PO HS [facility] Ondansetron HCl 4 mg 10/23/24 00:07 Ondansetron 4 Mg/2 Ml Vial IVP Q8HR PRN Nausea And Vomiting Intake and Output 10/22/24 10/22/24 10/23/24 14:59 22:59 06:59 Other: Weight 70.307 kg Patient Weight 10/23/24 06:59 Weight 70.307 kg 10/22/24 21:06 10/22/24 21:06
--- NOTE | 2024-10-23 12:16 | P.HPIM ---
History of Present Illness H&P Date: 10/23/24 This is a 58-year-old female patient of Dr. Morgan who presented with complaints of chest pain that started yesterday. Patient has a past medical history for hypertension, hyperlipidemia, diabetes mellitus and pleurisy. Patient denies nicotine dependence or previous cardiac history. Testing in e mergency room showed chest x-ray negative for acute process EKG showing sinus mechanism with no signs of acute ischemia troponins negative x 3. Additional lab work showing white blood cell 10.37, hemoglobin 12.8, potassium 5.3, creatinine 0.74 bun 23. At this time patient will be admitted cardiology services consulted stress test and 2D echo has been ordered. At this time patient denies chest pain or shortness of breath. Patient denies nausea vomiting or diarrhea. Patient denies any urinary burning or frequency Review of Systems Please refer to HPI otherwise unremarkable Past Medical History Past Medical History: Asthma, Diabetes Mellitus, GERD/Reflux, Hyperlipidemia, Hypertension, Pneumonia Additional Past Medical History / Comment(s): ruptured ear drum(lt), palpatations, bronchits, migraines, hx rib fx, osteoporosis. Covid 02/03/20 approximately, hx ulcer, "pre diabetic"-watches diet, hx anemia History of Any Multi-Drug Resistant Organisms: None Reported Past Surgical History: Appendectomy, Breast Surgery Additional Past Surgical History / Comment(s): Fluid drained from left Breast Past Anesthesia/Blood Transfusion Reactions: Motion Sickness Additional Past Anesthesia/Blood Transfusion Reaction / Comment(s): claustrophobia, Past Psychological History: Anxiety, Depression, PTSD, Schizophrenia Smoking Status: Never smoker Past Alcohol Use History: None Reported Past Drug Use History: None Reported - Past Family History Mother Family Medical History: Cancer Additional Family Medical History / Comment(s): colon cancer, Father Family Medical History: Myocardial Infarction ([place]) Additional Family Medical History / Comment(s): ptsd ([place] war), at age 42-mi Medications and Allergies Home Medications Medication Instructions Recorded Confirmed Type ALPRAZolam [Xanax] 1 mg PO TID PRN 03/08/24 10/23/24 History Benztropine Mesylate [Cogentin] 1 mg PO BID PRN 03/08/24 10/23/24 History lisinopriL [Zestril] 20 mg PO DAILY 03/08/24 10/23/24 History Fluticasone/Umeclidin/Vilanter 1 puff INHALATION RT-DAILY 06/08/24 10/23/24 History [Trelegy Ellipta 200-62.5-25] OLANZapine [ZyPREXA] 5 mg PO HS 06/08/24 10/23/24 History Rosuvastatin Calcium [Crestor] 5 mg PO DAILY 06/08/24 10/23/24 History metFORMIN HCL [Glucophage] 500 mg PO BID 06/08/24 10/23/24 History PARoxetine HCL [Paxil] 10 mg PO HS 10/23/24 10/23/24 History Allergies Allergy/AdvReac Type Severity Reaction Status Date / Time iodine Allergy Rash/Hives Verified 10/23/24 08:40 shellfish derived [Shrimp] Allergy Rash/Hives Verified 10/23/24 08:40 magnesium sulfate AdvReac Severe paralysis Verified 10/23/24 08:40 Sulfates AdvReac Severe paralysis Uncoded 10/23/24 08:40 Physical Exam Vitals: Vital Signs Temp Pulse Resp BP Pulse Ox 10/23/24 07:27 98 F 64 18 106/57 95 10/23/24 06:37 67 18 104/51 96 10/23/24 04:21 84 16 98/67 96 10/22/24 22:45 80 18 131/71 98 10/22/24 18:13 98.0 F 101 H 18 118/60 96 Intake and Output 10/22/24 10/23/24 10/23/24 22:59 06:59 14:59 Intake Total 0 Balance 0 Intake: Oral 0 Other: Voiding Method Toilet Weight 70.307 kg 70.307 kg Head normocephalic Neck supple Lungs clear to auscultation bilaterally no wheezing or crackles Heart regular rate and rhythm S1-S2, no rub or gallop Abdomen is soft nontender nondistended positive bowel sounds no hep atosplenomegaly Extremities no edema Neuro alert and orientated to 3 Results CBC & Chem 7: 10/22/24 21:06 10/22/24 21:06 Labs: Abnormal Lab Results - Last 24 Hours (Table) 10/22/24 10/22/24 Range/Units 21:06 21:06 WBC 10.37 H (4.50-10.00) 10*3/uL MPV 8.8 L (9.5-12.2) fL Immature Gran # 0.06 H (0.00-0.04) 10*3/uL Potassium 5.3 H (3.5-5.1) mmol/L BUN 23 H (7-17) mg/dL Glucose 108 H (74-99) mg/dL Calcium 10.4 H (8.4-10.2) mg/dL Albumin 5.2 H (3.5-5.0) g/dL Assessment and Plan Assessment: 1. Chest pain. Troponins negative x 3 2. History of asthma 3. History of essential hypertension 4. History of hyperlipidemia 5. History of [id number] diabetes mellitus type 2 6. History of GERD 7. History of depression Cardiology services consulted Stress test has been ordered 2D echo ordered Time with Patient: Greater than 30 (Greater than 60% of the total time spent in counseling and coordination of care)
--- NOTE | 2024-10-23 13:26 | CA ---
Transthoracic Echo Report Name: Maryann Gregory Age: 58 Gender: F : 1965 Exam Date: 10/23/2024 11:16 Exam Location: [facility] [facility] Ht (in): 60 Wt (lb): 155 Ordering Physician: Adriana Chen Attending/Referring Phys: [id number], April [employer]p [employer] Trupti Chou [facility] Procedure CPT: Indications: CP Cardiac Hx: Technical Quality: Fair Contrast 1: Total Dose (mL): Contrast 2: Total Dose (mL): MEASUREMENTS (Male / Female) Normal Values 2D ECHO LV Diastolic Diameter PLAX 3.4 cm 4.2 - 5.9 / 3.9 - 5.3 cm LV Systolic Diameter PLAX 2.1 cm IVS Diastolic Thickness 0.8 cm 0.6 - 1.0 / 0.6 - 0.9 cm LVPW Diastolic Thickness 1.2 cm 0.6 - 1.0 / 0.6 - 0.9 cm LV Relative Wall Thickness 0.6 RV Internal Dim ED PLAX 2.7 cm LVOT Diameter 1.6 cm LA Systolic Diameter LX 3.0 cm 3.0 - 4.0 / 2.7 - 3.8 cm LV Diastolic Volume MOD BP 54.5 cm??? 67 - 155 / 56 - 104 cm??? LV Systolic Volume MOD BP 17.8 cm??? 22 - 58 / 19 - 49 cm??? LV Ejection Fraction MOD BP 67.4 % >= 55 % LV Cardiac Index MOD BP 1763.1 cm???/min???m??? LV Diastolic Volume MOD 4C 50.8 cm??? LV Systolic Volume MOD 4C 16.3 cm??? LV Ejection Fraction MOD 4C 67.9 % LV Cardiac Index MOD 4C 1654.0 cm???/min???m??? LV Diastolic Length 4C 6.8 cm LV Systolic Length 4C 5.6 cm LV Diastolic Volume MOD 2C 57.4 cm??? LV Systolic Volume MOD 2C 17.4 cm??? LV Ejection Fraction MOD 2C 69.6 % LV Cardiac Index MOD 2C 1914.5 cm???/min???m??? LV Diastolic Length 2C 6.9 cm LV Systolic Length 2C 5.1 cm LA Volume 23.3 cm??? 18 - 58 / 22 - 52 cm??? LA Volume Index 13.3 cm???/m??? 16 - 28 cm???/m??? Ascending Aorta Diameter 2.6 cm M-MODE Aortic Root Diameter MM 2.5 cm AV Cusp Separation MM 1.8 cm DOPPLER AV Peak Velocity 130.7 cm/s AV Peak Gradient 6.8 mmHg LVOT Peak Velocity 94.0 cm/s LVOT Peak Gradient 3.5 mmHg AV Area Cont Eq pk 1.4 cm??? MV Area PHT 6.1 cm??? Mitral E Point Velocity 88.1 cm/s Mitral A Point Velocity 93.2 cm/s Mitral E to A Ratio 0.9 MV Deceleration Time 123.4 ms TR Peak Velocity 257.9 cm/s TR Peak Gradient 26.6 mmHg Right Ventricular Systolic Press 31.6 mmHg FINDINGS Left Ventricle Left ventricular ejection fraction is estimated at 60-65 %. Mildly increased posterior wall thickness.left ventricular cavity size normal. No obvious regional wall motion abnormalities. Right Ventricle Normal right ventricular size and function. Right Atrium Normal right atrial size. No right atrial thrombus or mass seen. Left Atrium Normal left atrial size. No left atrial thrombus or mass present. Mitral Valve mild to moderate MR. Aortic Valve Trileaflet aortic valve. No aortic stenosis. No aortic regurgitation. Tricuspid Valve Structurally normal tricuspid valve. Mild tricuspid regurgitation. Pulmonic Valve Structurally normal pulmonic valve. No pulmonic regurgitation. Pericardium Minimal pericardial effusion.no pleural effusion. Aorta Normal size aortic root and proximal ascending aorta. CONCLUSIONS Normal LV systolic function Mild to moderate MR Previewed by: Dr. Palomo Santoyo MD (Electronically Signed) Final Date: 23 October 2024 13:25
--- NOTE | 2024-10-23 13:29 | CA ---
Exercise Stress Test Report Name: Maryann Gregory Exam Date: 10/23/2024 10:56 Exam Location: [facility] Stress Ht (in): 61 Wt (lb): 155 BSA: 1.70 Ordering Phys: Adriana Chen Referring Phys: ASHA Technologist: FAHAD HOPE Age: 58 Gender: F : 1965 Procedure CPT: Indications: CP ICD-10 Codes: Patient History: Medications: SEE CHART,,, Meds past 24 hrs: Pretest Chest Pain: STRESS TEST Surjit Protocol Exercise Duration (min:sec): 03:[address] Depressions (mm): Angina Score: Cervantes Score: Resting HR (bpm): 93 Peak HR (bpm): 147 Resting BP (mmHg): 157 / 74 Peak BP (mmHg): 158 / 70 MPHR: 164 Target HR: 139 % MPHR: 90 METS: 5.6 Total Dose: Peak Dose: Atropine: Double Product: 16993 BP Response: Stress Termination: TARGET HR REACHED/MAX EXERTION Stress Symptoms: TIRED Stress Summary: ECG ANALYSIS Resting ECG: Stress ECG: CONCLUSIONS Normal exercise treadmill stress Dr. Palomo Santoyo MD (Electronically Signed) Final Date: 23 October 2024 13:28
--- NOTE | 2024-10-23 13:53 | P.DS ---
Providers Date of admission: 10/23/24 00:08 Expected date of discharge: 10/23/24 Attending physician: Madan James Consults: 10/23/24 00:07 Consult Physician Routine Consulting Provider: Dustin Padilla Consult Reason/Comments: cp Do you want consulting provider notified?: Yes Primary care physician: Trini Sadler Hospital Course: Discharge diagnosis 1. Chest pain. Troponins negative x 3 2. History of asthma 3. History of essential hypertension 4. History of hyperlipidemia 5. History of sjy-swrgzgn-dtildvaob diabetes mellitus type 2 6. History of GERD 7. History of depression Hospital course This is a 58-year-old female patient of Dr. Morgan who presented with complaints of chest pain that started yesterday. Patient has a past medical history for hypertension, hyperlipidemia, diabetes mellitus and pleurisy. Patient denies nicotine dependence or previous cardiac history. Testing in emergency room showed chest x-ray negative for acute process EKG showing sinus mechanism with no signs of acute ischemia troponins negative x 3. Additional lab work showing white blood cell 10.37, hemoglobin 12.8, potassium 5.3, creatinine 0.74 bun 23. At this time patient will be admitted cardiology services consulted stress test and 2D echo has been ordered. At this time patient denies chest pain or shortness of breath. Patient denies nausea vomiting or diarrhea. Patient denies any urinary burning or frequency Patient had been cleared for discharge from cardiology standpoint. Stress test completed negative. 2D echo completed showing an EF of 60 to 65%. Patient will be DC'd home follow-up with PCP for further management Patient Condition at Discharge: Stable Plan - Discharge Summary Discharge Rx Participant: Yes New Discharge Prescriptions: Continue lisinopriL [Zestril] 20 mg PO DAILY Benztropine Mesylate [Cogentin] 1 mg PO BID PRN PRN Reason: Tremor/Anxiety Fluticasone/Umeclidin/Vilanter [Trelegy Ellipta 200-62.5-25] 1 puff INHALATION RT-DAILY OLANZapine [ZyPREXA] 5 mg PO HS PARoxetine HCL [Paxil] 10 mg PO HS ALPRAZolam [Xanax] 1 mg PO TID PRN PRN Reason: Anxiety Rosuvastatin Calcium [Crestor] 5 mg PO DAILY metFORMIN HCL [Glucophage] 500 mg PO BID Discharge Medication List ALPRAZolam [Xanax] 1 mg PO TID PRN 03/08/24 [History] Benztropine Mesylate [Cogentin] 1 mg PO BID PRN 03/08/24 [History] lisinopriL [Zestril] 20 mg PO DAILY 03/08/24 [History] Fluticasone/Umeclidin/Vilanter [Trelegy Ellipta 200-62.5-25] 1 puff INHALATION RT-DAILY 06/08/24 [History] OLANZapine [ZyPREXA] 5 mg PO HS 06/08/24 [History] Rosuvastatin Calcium [Crestor] 5 mg PO DAILY 06/08/24 [History] metFORMIN HCL [Glucophage] 500 mg PO BID 06/08/24 [History] PARoxetine HCL [Paxil] 10 mg PO HS 10/23/24 [History] Follow up Appointment(s)/Referral(s): Trini Sadler MD [Primary Care Provider] - 1-2 days Discharge Disposition: HOME SELF-CARE
[2024-10-23] MEDS ORDERED: OLANZapine 5 MG TAB PO SCH (21:00)
[2024-10-24] MEDS ORDERED: ATORVASTATIN 10 MG TAB PO SCH (09:00)
== END 2024-10-23 15:11 | disposition home or self-care (01) ==
LOC: EC 18:09 → 6NMEDSUR 10-23 00:08 → 1SOBS 10-23 05:49
PROVIDERS: ADMIT Internal Medicine; ATTEND Internal Medicine
DX: R07.2 Precordial pain (principal); R68.84 Jaw pain; I08.1 Rheumatic disorders of both mitral and tricuspid valves; E78.00 Pure hypercholesterolemia, unspecified; I10 Essential (primary) hypertension; E11.9 Type 2 diabetes mellitus without complications; J45.909 Unspecified asthma, uncomplicated; K21.9 Gastro-esophageal reflux disease without esophagitis; M54.9 Dorsalgia, unspecified; R61 Generalized hyperhidrosis; R06.09 Other forms of dyspnea; R00.2 Palpitations; M79.602 Pain in left arm; R55 Syncope and collapse; F32.A Depression, unspecified; Z79.84 Long term (current) use of oral hypoglycemic drugs; Z79.51 Long term (current) use of inhaled steroids; Z79.899 Other long term (current) drug therapy; Z91.013 Allergy to seafood; Z88.8 Allergy status to other drugs, medicaments and biological substances; Z91.048 Other nonmedicinal substance allergy status; Z87.09 Personal history of other diseases of the respiratory system
CPT/HCPCS: 96360; 96361; 99285; 36415; 93005; 93017; 93306; 80053; 83735; 84484 ×2; 85025; 85610; 85730; 71046; G0378 ×2